=== PATIENT | female | born 1940 | race Caucasian/White ===

== ENCOUNTER → 2016-11-24 | Outpatient (CLI) | payer MEDICARE, OTHER ==
--- NOTE | 2016-11-24 16:34 | BD ---
EXAMINATION TYPE: MG DEXA axial skeleton. DATE OF EXAM: 11/24/2016 COMPARISON: NONE CLINICAL HISTORY: 76-year-old female disorder of bone, postmenopausal screening Height: 5 FT 1 IN Weight: 100 FRAX RISK QUESTIONS: Alcohol (3 or more units per day): NO Family History (Parent hip fracture): NO Glucocorticoids (More than 3mos): NO (Ex: prednisone, prednisolone, methylprednisolone, dexamethasone, and hydrocortisone). History of Fracture in Adulthood: NO Secondary Osteoporosis: 1. Type 1 Diabetes: NO 2. Hyperthyroidism: NO 3. Menopause before 45: NO 4. Malnutrition: NO 5. Chronic liver disease: NO Rheumatoid Arthritis: NO Current Tobacco Use: NO RISK FACTORS HISTORY OF: Active: YES Postmenopausal woman: AGE 50 MEDICATIONS: Additional Medications: NONE Additional History: EXAM MEASUREMENTS: Bone mineral densitometry was performed using the [employer] System. Bone mineral density as measured about the Lumbar spine is: ----- L1-L4(G/cm2): 1.012 T Score Values are as follows: ----- L2: -1.7 ----- L3: -1.1 ----- L4: -1.6 ----- L1-L4: -1.4 Bone mineral density has: Increased 5.0% since study of: 2014 Bone mineral density about the R hip (g/cm2): 0.801 Bone mineral density about the L hip (g/cm2): 0.823 T Score values are as follows: -----R Neck: -1.7 -----L Neck: -1.5 -----R Total: -1.6 -----L Total: -1.4 Bone mineral density has: Increased 2.4% since study of: 2014 IMPRESSION: Osteopenia (T Score between -2.5 and -1 as noted by T score values in the lumbar spine and both hips) . There is slightly increased risk of fracture and the patient may be considered for treatment. Re-Scre en 2-5 years. NOTE: T-SCORE=SD OF THE YOUNG ADULT MEAN.
--- NOTE | 2016-11-25 10:20 | MM ---
Reason for exam: screening (asymptomatic). Last mammogram was performed 2 years and 6 months ago. History: Patient is postmenopausal. Physical Findings: A clinical breast exam by your physician is recommended on an annual basis and results should be correlated with mammographic findings. MG 3D Screening Mammo W/Cad Bilateral CC and MLO view(s) were taken. Prior study comparison: May 13, 2014, bilateral MG screening mammo w CAD. March 07, 2009, bilateral digital screening mammogram. The breast tissue is heterogeneously dense. This may lower the sensitivity of mammography. No suspicious abnormality. No significant changes when compared with prior studies. ASSESSMENT: Negative, BI-RAD 1 RECOMMENDATION: Routine screening mammogram of both breasts in 1 year.
== END | disposition home or self-care (01) ==
LOC: RADMAMWWP 14:42
PROVIDERS: ATTEND Internal Medicine
DX: Z12.31 Encounter for screening mammogram for malignant neoplasm of breast (principal); M85.851 Other specified disorders of bone density and structure, right thigh; M85.852 Other specified disorders of bone density and structure, left thigh; M85.88 Other specified disorders of bone density and structure, other site
CPT/HCPCS: 77080; 77063; G0202

== ENCOUNTER → 2017-12-06 | Outpatient (CLI) | payer MEDICARE, OTHER ==
--- NOTE | 2017-12-07 13:13 | MM ---
Reason for exam: screening (asymptomatic). Last mammogram was performed 1 year ago. History: Patient is postmenopausal. Physical Findings: A clinical breast exam by your physician is recommended on an annual basis and results should be correlated with mammographic findings. MG 3D Screening Mammo W/Cad Bilateral CC and MLO view(s) were taken. XCCL view(s) were taken of the right breast. Prior study comparison: November 24, 2016, bilateral MG 3d screening mammo w/cad. May 13, 2014, bilateral MG screening mammo w CAD. The breast tissue is heterogeneously dense. This may lower the sensitivity of mammography. No significant changes when compared with prior studies. ASSESSMENT: Benign, BI-RAD 2 RECOMMENDATION: Routine screening mammogram of both breasts in 1 year.
== END | disposition home or self-care (01) ==
LOC: RADMAMWWP 10:46
PROVIDERS: ATTEND Internal Medicine
DX: Z12.31 Encounter for screening mammogram for malignant neoplasm of breast (principal)
CPT/HCPCS: 77063; 77067

== ENCOUNTER → 2018-03-07 | Outpatient (CLI) | payer MEDICARE ==
[2018-03-07 13:08] LABS: HGB 10.8 gm/dL (11.4-16.0); Hypochromasia Slight; MCH 27.4 pg (25.0-35.0); MCHC 30.9 g/dL (31.0-37.0); MCV 88.8 fL (80.0-100.0); Mean Platelet Volume 7.2; Platelet Count 414 k/uL (150-450); RBC 3.94 m/uL (3.80-5.40); RDW 13.2 % (11.5-15.5)
[2018-03-07 13:17] LABS: Anion Gap 8 mmol/L; Blood Urea Nitrogen 15 mg/dL (7-17); Carbon Dioxide 29 mmol/L (22-30); Chloride 103 mmol/L (98-107); Glucose 89 mg/dL (74-99); Potassium 4.9 mmol/L (3.5-5.1); Sodium 140 mmol/L (137-145)
== END | disposition home or self-care (01) ==
LOC: LABPAT 11:45
PROVIDERS: ATTEND Internal Medicine Cardiovascular Disease
DX: Z01.812 Encounter for preprocedural laboratory examination (principal); R07.2 Precordial pain
CPT/HCPCS: 80051; 82565; 82947; 84520; 85027

== ENCOUNTER 2018-03-09 06:23 | Inpatient (IN) | payer MEDICARE ==
[~2018-03-09 06:23] MED LIST: ALPRAZolam 0.25 MG TAB PO PRN; ALPRAZolam 0.5 MG TAB PO PRN; NITROGLYCERIN SL TABS 0.4 MG TAB SUBLINGUAL PRN; SODIUM CHLORIDE 0.9% 1,000 ML in EMPTY BAG 1 BAG IV ONE
[2018-03-09] MEDS ORDERED: ATORVASTATIN 80 MG TAB PO ONE (07:00)
[2018-03-09] MEDS ORDERED: ASPIRIN 325 MG TAB PO ONE (07:00)
[2018-03-09] MEDS ORDERED: MIDAZOLAM 2 MG/2 ML VIAL IV ONE (07:37)
[2018-03-09] MEDS ORDERED: LIDOCAINE 1% INJ 10MG/ML (20 ML MDV) SQ ONE (07:40)
[2018-03-09] MEDS ORDERED: IOPAMIDOL-370 125ML BTL INJ ONE (08:05)
[2018-03-09] MEDS ORDERED: RX INFO: IV CONTRAST WAS GIVEN 1 EACH MISC MISCELLANE PRN (08:08)
[2018-03-09] MEDS ORDERED: METOPROLOL SUCCINATE (ER) 25 MG TAB.ER.24H PO STA (08:14)
[2018-03-09] MEDS ORDERED: ISOSORBIDE MONONITRATE ER 30 MG TAB.ER.24H PO STA (08:14)
[2018-03-09] MEDS ORDERED: MD COMMUNICATION TO PHARMACY 1 EACH MISC PO ONE ×2 (08:43)
[2018-03-09 08:54] LABS: Cholesterol 143 mg/dL (<200); HDL Cholesterol 55 mg/dL (40-60); LDL Cholesterol,Calculated 77 mg/dL (0-99); Triglycerides 57 mg/dL (<150)
--- NOTE | 2018-03-09 09:05 | CC ---
CARDIAC CATHETERIZATION REPORT INDICATION: Unstable angina. This is a 78-year-old lady who presented to us with recurrent episodes of chest pain and had an abnormal EKG part of the stress test with normal nuclear scan. Patient was advised to undergo cardiac catheterization. She had been explained of risks, benefits and alternatives, understood and accepted. PROCEDURE NOTE: After obtaining informed consent, left heart catheterization and coronary angiogram were performed via the right femoral artery using standard [place] catheters. Patient tolerated the procedure well without any obvious immediate complications. A femoral angiogram was performed and Angio-Seal was deployed for hemostasis. Patient received moderate conscious sedation. Total sedation time was 22 minutes. Femoral angiogram shows that patient has a stenosis in the right superficial femoral artery. FINDINGS: HEMODYNAMICS: Left ventricular end-diastolic pressure is 12 to 14 mm. There is no significant gradient across the aortic valve. LEFT VENTRICULOGRAM: Ventriculogram is not performed. ANGIOGRAPHIC DATA: Left main coronary artery appears calcified and there is a 60% stenosis involving the distal portion of the left main as it bifurcates into LAD and circumflex coronary artery. The ostial portion of the LAD shows an 80%-90% stenosis. The diagonal branch also shows an 80% stenosis. Circumflex coronary artery is a nondominant vessel and is free of significant disease. Right coronary artery is a large dominant vessel that gives out collaterals to the distal LAD. There is a 95% stenosis involving the proximal right coronary artery. CONCLUSION: 1. Distal left main stenosis. 2. A 90% ostial LAD, 95% proximal RCA and a significant stenosis involving the diagonal branch. PLAN: Patient has normal LV systolic function. I am going to treat her with aspirin, nitrates, beta blockers and statins. I am going to check her lipid profile today. I am going to consult Dr. Silvano Astorga, the cardiothoracic surgeon, to evaluate the patient for bypass surgery. Patient had an episode of chest pain last night also. I think she will benefit from surgery being done on this admission. MMODL / IJN: [id number] /
--- NOTE | 2018-03-09 09:06 | LTR ---
DATE OF SERVICE: 03/09/2018 RE: Ita Cotton Dear Dr. Dyson; Ita Cotton is a 78-year-old lady that you referred to me for evaluation of recurrent episodes of chest pain and a stress test I performed. She had EKG changes but the nuclear scan was normal. Given the persistent symptoms, I advised her to undergo cardiac catheterization. Cardiac catheterization revealed significant distal left main, severe ostial LAD stenosis and severe proximal right coronary artery stenosis. Patient will need and would benefit from bypass surgery. I am consulting Dr. Silvano Astorga, the cardiothoracic surgeon, to evaluate the patient and hopefully perform bypass surgery on this admission. Thank you for giving me the privilege to participate in this pleasant lady. Sincerely, MD TRAVIS Valenzuela / MERLINE: [id number] /
[2018-03-09] MEDS: SODIUM CHLORIDE 0.9% 1,000 ML IV SCH ×2 (09:13→20:32)
[2018-03-09 09:17] LABS: ALT 29 U/L (9-52); AST 18 U/L (14-36); Albumin 2.9 g/dL (3.5-5.0); Alkaline Phosphatase 85 U/L (38-126); Anion Gap 6 mmol/L; Blood Urea Nitrogen 13 mg/dL (7-17); Calcium 8.6 mg/dL (8.4-10.2); Carbon Dioxide 25 mmol/L (22-30); Chloride 107 mmol/L (98-107); Glucose 97 mg/dL (74-99); Magnesium 2.1 mg/dL (1.6-2.3); Potassium 4.2 mmol/L (3.5-5.1); Sodium 138 mmol/L (137-145); Total Bilirubin 0.4 mg/dL (0.2-1.3); Total Protein 5.4 g/dL (6.3-8.2)
[2018-03-09 09:50] LABS: Basophils # (A) 0.1 k/uL (0-0.2); Basophils % (A) 1 %; Eosinophils # (A) 0.1 k/uL (0-0.7); Eosinophils % (A) 1 %; HCT 30.2 % (34.0-46.0); HGB 9.7 gm/dL (11.4-16.0); Hypochromasia Slight; Lymphocytes % (A) 17 %; MCH 28.3 pg (25.0-35.0); MCV 88.3 fL (80.0-100.0); Mean Platelet Volume 7.7; Monocytes # (A) 0.2 k/uL (0-1.0); Monocytes % (A) 4 %; Neutrophils # (A) 4.4 k/uL (1.3-7.7); Neutrophils % (A) 74 %; Platelet Count 337 k/uL (150-450); RBC 3.41 m/uL (3.80-5.40); RDW 13.6 % (11.5-15.5); WBC 5.9 k/uL (3.8-10.6)
[2018-03-09 10:05] LABS: INR 0.9 (<1.2); Partial Thromboplastin Time 25.2 sec (22.0-30.0)
--- NOTE | 2018-03-09 12:50 | XR ---
EXAMINATION TYPE: XR chest 2V DATE OF EXAM: 03/09/2018 COMPARISON: NONE TECHNIQUE: PA and lateral views submitted. HISTORY: Preop clearance FINDINGS: The lungs are clear and there is no pneumothorax, pleural effusion, or focal pneumonia. Hyperinflat ion suggests COPD. There is an anterior rib deformity noted on the left. Atherosclerotic change aorta . Hypertrophic and degenerative change of the spine. IMPRESSION: 1. No acute process. Correlate for COPD.
[2018-03-09 12:51] LABS: Appearance,Urine Clear (Clear); Bilirubin,Urine Negative (Negative); Blood,Urine Trace (Negative); Color,Urine Light Yellow; Glucose,Urine (UA) Negative (Negative); Ketones,Urine Negative (Negative); Leukocyte Esterase,Urine Negative (Negative); Nitrite,Urine Negative (Negative); PH, Urine 7.5 (5.0-8.0); Protein,Urine Negative (Negative); RBC,Urine 10 /hpf (0-5); Specific Gravity,Urine 1.029 (1.001-1.035); Urobilinogen,Urine <2.0 mg/dL (<2.0)
--- NOTE | 2018-03-09 12:59 | P.GSCN ---
<Janice Barrow - Last Filed: 03/09/18 12:46> History of Present Illness Consult date: 03/09/18 Reason for Consult: Multivessel coronary artery disease, surgical revascularization recommendations. Requesting physician: Sinan Alvarez History of present illness: This is a 78-year-old active female patient who follows with Dr. Dyson an outpatient basis. She has no significant previous medical history except hyperlipidemia and family history of premature coronary artery disease with father at 51, uncle at 49, aunt at 72, all from cardiovascular disease. She was following with Dr. Alvarez in the office for exertional angina with complaints of chest pain and heaviness with radiation to both arms, associated with occasional emesis, relieved with rest. She denies any shortness of breath, syncope, diaphoresis. She underwent nuclear stress test which was abnormal. She had a transthoracic echocardiogram in Dr. Alvarez's office on February 28 which demonstrated normal LV function with EF 55%, no wall motion abnormalities, grade 1 diastolic dysfunction, mild mitral regurgitation, and trace tricuspid regurgitation. She was recommended to undergo heart catheterization which was completed this morning and which demonstrated distal left main stenosis 60%, ostial LAD stenosis 80-90% with a diagonal branch showing 80% stenosis, and right coronary artery with 95% proximal stenosis. Dr. Astorga from cardiothoracic surgery was consulted regarding surgical revascularization recommendations. Review of Systems Review of systems was completed it was negative except as noted in the HPI. Past Medical History Past Medical History: Hyperlipidemia Additional Past Medical History / Comment(s): states pinched nerve in back History of Any Multi-Drug Resistant Organisms: None Reported Additional Past Surgical History / Comment(s): D&C Past Anesthesia/Blood Transfusion Reactions: No Reported Reaction Past Psychological History: No Psychological Hx Reported Smoking Status: Never smoker Past Alcohol Use History: None Reported Past Drug Use History: None Reported - Past Family History Father Family Medical History: Coronary Artery Disease (CAD) Additional Family Medical History / Comment(s): Father at 51 years old from CAD, uncle at 49 years old from CAD, and passed rate 72 from CAD Brother(s) Additional Family Medical History / Comment(s): Brother with defibrillator Medications and Allergies Home Medications Medication Instructions Recorded Confirmed Type Aspirin [Adult Low Dose Aspirin EC] 81 mg PO HS 03/07/18 03/09/18 History Calcium Carbonate [Calcium] 600 mg PO DAILY 03/07/18 03/09/18 History Co Q-10 1 tab PO DAILY 03/07/18 History Magnesium 1,000 mg PO HS 03/07/18 History Red Yeast Rice 600 mg PO DAILY 03/07/18 03/09/18 History Isosorbide Mononitrate ER [Imdur] 15 mg PO DAILY 03/09/18 03/09/18 History Metoprolol Succinate (ER) [Toprol 25 mg PO DAILY 03/09/18 03/09/18 History Xl] Allergies Allergy/AdvReac Type Severity Reaction Status Date / Time Penicillins Allergy Rash/Hives Verified 03/07/18 14:41 Surgical - Exam Vital Signs Temp Pulse Resp BP Pulse Ox 98.1 F 76 16 133/56 93 L 03/09/18 06:50 03/09/18 06:50 03/09/18 06:50 03/09/18 06:50 03/09/18 06:50 - General well developed, well nourished, no distress, no pain - Eyes PERRL, normal ocular movement - ENT no hearing loss - Neck no masses, no bruits, trachea midline - Respiratory Lungs sounds clear bilaterally. Respirations even, nonlabored. Currently on room air with oxygen saturation 98%. No chest wall deformities. - Cardiovascular S1, S2 present. Regular rate and rhythm, sinus rhythm on telemetry. Palpable peripheral pulses bilaterally. No edema present. No calf pain or tenderness noted. Positive varicosities noted. - Abdomen Abdomen: soft, non tender, bowel sounds - Genitourinary Deferred - Rectum Deferred - Integumentary no rash, no growths - Neurologic normal coordination, normal sensation - Musculoskeletal normal posture - Psychiatric oriented to time, oriented to person, oriented to place, speech is normal, memory intact Results - Labs 03/09/18 09:24 03/09/18 08:30 Abnormal Lab Results - Last 24 Hours (Table) 03/09/18 03/09/18 Range/Units 08:30 09:24 RBC 3.41 L (3.80-5.40) m/uL Hgb 9.7 L (11.4-16.0) gm/dL Hct 30.2 L (34.0-46.0) % Total Protein 5.4 L (6.3-8.2) g/dL Albumin 2.9 L (3.5-5.0) g/dL Diabetes panel 03/09/18 03/09/18 Range/Units 08:00 08:30 Sodium 138 (137-145) mmol/L Potassium 4.2 (3.5-5.1) mmol/L Chloride 107 (98-107) mmol/L Carbon Dioxide 25 (22-30) mmol/L BUN 13 (7-17) mg/dL Creatinine 0.62 (0.52-1.04) mg/dL Glucose 97 (74-99) mg/dL Calcium 8.6 (8.4-10.2) mg/dL AST 18 (14-36) U/L ALT 29 (9-52) U/L Alkaline Phosphatase 85 (38-126) U/L Total Protein 5.4 L (6.3-8.2) g/dL Albumin 2.9 L (3.5-5.0) g/dL Triglycerides 57 (<150) mg/dL HDL Cholesterol 55 (40-60) mg/dL Thyroid panel 03/09/18 Range/Units 08:30 TSH 4.280 (0.465-4.680) mIU/L Calcium panel 03/09/18 Range/Units 08:30 Calcium 8.6 (8.4-10.2) mg/dL Albumin 2.9 L (3.5-5.0) g/dL Pituitary panel 03/09/18 Range/Units 08:30 Sodium 138 (137-145) mmol/L Potassium 4.2 (3.5-5.1) mmol/L Chloride 107 (98-107) mmol/L Carbon Dioxide 25 (22-30) mmol/L BUN 13 (7-17) mg/dL Creatinine 0.62 (0.52-1.04) mg/dL Glucose 97 (74-99) mg/dL Calcium 8.6 (8.4-10.2) mg/dL TSH 4.280 (0.465-4.680) mIU/L Adrenal panel 03/09/18 Range/Units 08:30 Sodium 138 (137-145) mmol/L Potassium 4.2 (3.5-5.1) mmol/L Chloride 107 (98-107) mmol/L Carbon Dioxide 25 (22-30) mmol/L BUN 13 (7-17) mg/dL Creatinine 0.62 (0.52-1.04) mg/dL Glucose 97 (74-99) mg/dL Calcium 8.6 (8.4-10.2) mg/dL Total Bilirubin 0.4 (0.2-1.3) mg/dL AST 18 (14-36) U/L ALT 29 (9-52) U/L Alkaline Phosphatase 85 (38-126) U/L Total Protein 5.4 L (6.3-8.2) g/dL Albumin 2.9 L (3.5-5.0) g/dL - Imaging Additional studies: Cardiac catheterization films reviewed Assessment and Plan (1) Hyperlipidemia Current Visit: Yes Status: Chronic Code(s): E78.5 - HYPERLIPIDEMIA, UNSPECIFIED SNOMED Code(s): 83198570 (2) Family history of premature coronary artery disease Current Visit: Yes Status: Chronic Code(s): Z82.49 - FAMILY HX OF [place]HE[place] HEART DIS AND OTH DIS OF THE CIRC SYS SNOMED Code(s): 535982881 (3) Coronary artery disease Current Visit: Yes Status: Acute Code(s): I25.10 - ATHSCL HEART DISEASE OF [place] CORONARY ARTERY W/O ANG PCTRS SNOMED Code(s): 38886640 (4) Left main coronary artery disease Current Visit: Yes Status: Acute Code(s): I25.10 - ATHSCL HEART DISEASE OF [place] CORONARY ARTERY W/O ANG PCTRS SNOMED Code(s): 139874294 Plan: The patient was seen and examined in the extended stay unit with Dr. Astorga. Chart/diagnostics reviewed including heart catheterization films. Our recommendation is for coronary artery bypass graft surgery. We discussed the usual perioperative course in detail with the patient and her family, all risks and benefits were discussed in detail, all questions were answered, and the patient is agreeable to surgery. She will remain inpatient per cardiology's wishes. Preoperative testing was initiated. We recommend maximizing medical therapy with aspirin, statin, beta lobito. Patient will likely have surgery the early part of next week pending the outcome of preoperative testing. This was discussed with the patient and her family and they are in agreement. Continue medical management per service. More recommendations to follow. Thank you Dr. Alvarez for this consult. We look forward to working with you in the care of your patient. Time with Patient: Greater than 30 <Yobany Astorga R - Last Filed: 03/09/18 14:51> Surgical - Exam Vital Signs Temp Pulse Resp BP Pulse Ox 98.1 F 76 16 133/56 93 L 03/09/18 06:50 03/09/18 06:50 03/09/18 06:50 03/09/18 06:50 03/09/18 06:50 Results - Labs 03/09/18 09:24 03/09/18 08:30 Abnormal Lab Results - Last 24 Hours (Table) 03/09/18 03/09/18 03/09/18 Range/Units 08:30 09:24 12:35 RBC 3.41 L (3.80-5.40) m/uL Hgb 9.7 L (11.4-16.0) gm/dL Hct 30.2 L (34.0-46.0) % Total Protein 5.4 L (6.3-8.2) g/dL Albumin 2.9 L (3.5-5.0) g/dL Urine Blood Trace H (Negative) Urine RBC 10 H (0-5) /hpf Diabetes panel 03/09/18 03/09/18 Range/Units 08:00 08:30 Sodium 138 (137-145) mmol/L Potassium 4.2 (3.5-5.1) mmol/L Chloride 107 (98-107) mmol/L Carbon Dioxide 25 (22-30) mmol/L BUN 13 (7-17) mg/dL Creatinine 0.62 (0.52-1.04) mg/dL Glucose 97 (74-99) mg/dL Calcium 8.6 (8.4-10.2) mg/dL AST 18 (14-36) U/L ALT 29 (9-52) U/L Alkaline Phosphatase 85 (38-126) U/L Total Protein 5.4 L (6.3-8.2) g/dL Albumin 2.9 L (3.5-5.0) g/dL Triglycerides 57 (<150) mg/dL HDL Cholesterol 55 (40-60) mg/dL Thyroid panel 03/09/18 Range/Units 08:30 TSH 4.280 (0.465-4.680) mIU/L Calcium panel 03/09/18 Range/Units 08:30 Calcium 8.6 (8.4-10.2) mg/dL Albumin 2.9 L (3.5-5.0) g/dL Pituitary panel 03/09/18 Range/Units 08:30 Sodium 138 (137-145) mmol/L Potassium 4.2 (3.5-5.1) mmol/L Chloride 107 (98-107) mmol/L Carbon Dioxide 25 (22-30) mmol/L BUN 13 (7-17) mg/dL Creatinine 0.62 (0.52-1.04) mg/dL Glucose 97 (74-99) mg/dL Calcium 8.6 (8.4-10.2) mg/dL TSH 4.280 (0.465-4.680) mIU/L Adrenal panel 03/09/18 Range/Units 08:30 Sodium 138 (137-145) mmol/L Potassium 4.2 (3.5-5.1) mmol/L Chloride 107 (98-107) mmol/L Carbon Dioxide 25 (22-30) mmol/L BUN 13 (7-17) mg/dL Creatinine 0.62 (0.52-1.04) mg/dL Glucose 97 (74-99) mg/dL Calcium 8.6 (8.4-10.2) mg/dL Total Bilirubin 0.4 (0.2-1.3) mg/dL AST 18 (14-36) U/L ALT 29 (9-52) U/L Alkaline Phosphatase 85 (38-126) U/L Total Protein 5.4 L (6.3-8.2) g/dL Albumin 2.9 L (3.5-5.0) g/dL Assessment and Plan Assessment: 78 yof w progressive AP over past 6 m. Cath today shows Lt main/triple vessel dz. Plan CABG. I feel pt is stable and could go home w readmit next week for OR. Cardiology requests patient stay in house until OR. CABG next available, likely early next week.
--- NOTE | 2018-03-09 14:49 | US ---
EXAMINATION TYPE: US carotid duplex BILAT DATE OF EXAM: 03/09/2018 COMPARISON: CLINICAL HISTORY: Pre-Op Surgery. Precabg, No HTN, no TIA EXAM MEASUREMENTS: RIGHT: Peak Systolic Velocity (PSV) cm/sec ----- Right CCA: 67.7 ----- Right ICA: 94.6 ----- Right ECA: 100.9 ICA/CCA ratio: 1.4 RIGHT: End Diastole cm/sec ----- Right CCA: 16.2 ----- Right ICA: 29.6 ----- Right ECA: 0.0 LEFT: Peak Systolic Velocity (PSV) cm/sec ----- Left CCA: 75.6 ----- Left ICA: 97.9 ----- Left ECA: 111.3 ICA/CCA ratio: 1.3 LEFT: End Diastole cm/sec ----- Left CCA: 16.2 ----- Left ICA: 29.6 ----- Left ECA: 0.0 VERTEBRALS (direction of flow): Right Vertebral: Antegrade Left Vertebral: Antegrade Rhythm: Normal Plaque seen in left bulb and left prox CCA. No elevated velocities. Left wall thickening. No signi ficant stenosis. IMPRESSION: 1. Atherosclerotic plaque on the left with no significant hemodynamic stenosis. Criteria for Assigning % of Stenosis / Diameter reduction (Estimation based on the indirect measurements of the internal carotid artery velocities (ICA PSV). 1. Normal (no stenosis)=ICA PSV < 125 cm/s: ratio < 2.0: ICA EDV<40 cm/s. 2. Less than 50% stenosis=ICA PSV < 125 cm/s: ratio < 2.0: ICA EDV<40 cm/s. 3. 50 to 69% stenosis=ICA PSV of 125 to 230 cm/s: ration 2.0 ? 4.0: ICA EDV 40-100 cm/s. 4. Greater than 70% stenosis to near occlusion= ICA PSV > 230 cm/s: ratio > 4.0: ICA EDV > 100 cm/s. 5. Near occlusion= ICA PSV velocities may be low or undetectable: variable ratio and ICA EDV. 6. Total occlusion=unable to detect flow.
[2018-03-09] MEDS: ASPIRIN 325 MG TAB PO SCH (15:05)
[2018-03-09 18:37] LABS: Hemoglobin A1C 5.7 % (4.0-6.0)
[2018-03-09] MEDS: MUPIROCIN 2% OINT 22 GM TUBE NASAL SCH (20:30)
[2018-03-09] MEDS ORDERED: METOPROLOL TARTRATE 12.5 MG TAB PO STA (20:49)
--- NOTE | 2018-03-09 23:18 | CONS ---
CONSULTATION The patient is a 78-year-old female who had been having recurrent chest discomfort. Apparently, workup as an outpatient revealed a suspicious stress test and she underwent further cardiac catheterization earlier today, results of which revealed distal left main stenosis also a 90% ostial LAD lesion, 95% proximal right coronary artery lesion and also apparent significant stenosis involving the diagonal branch. The patient has maintained normal LV function. Consultation has been placed with thoracic surgery and apparently there are plans for surgical intervention. PATIENT'S PAST MEDICAL HISTORY: Is positive for hyperlipidemia, for which patient has declined medication in the past. He has tried to control it as best possible with diet. There is also history of osteopenia, but no history of myocardial infarction, diabetes, stroke, or hypertension. Until recently other than aspirin she has not been on any major medications, although she did take coenzyme Q and 81 mg of aspirin a day. She more recently with her history she has been started on metoprolol ER 25 mg daily. Isosorbide mononitrate, Imdur 15 mg daily, calcium carbonate 600 mg daily, aspirin 81 mg daily. Red yeast rice 600 mg daily. ALLERGIES: THERE IS A HISTORY OF ALLERGIES TO PENICILLIN WITH RASH AND HIVES. REVIEW OF SYSTEMS: Positive for some recurrent chest pain, some which occurred at rest, but some did occur while she was climbing stairs and this has seemed to gradually worsen over several weeks prior to admission. She had some shortness of breath with exertion, but no fever, chills, cough. No nausea, vomiting. No urinary or bowel symptomatology. No blood in her stool. No unusual edema. No unusual headaches. FAMILY HISTORY: She has a father who has had a myocardial infarction. SOCIAL HISTORY: She has never smoked. She does not drink alcohol to any excess and lives locally in the [place] area with her . PHYSICAL EXAMINATION: She is alert, pleasant, in no acute distress. VITAL SIGNS: Temperature 98 with a pulse of 70, respirations 16, and blood pressure 151/58, and she is 100% saturated on room air. Head and neck exam was unremarkable. Extraocular movements are intact. Neck is not stiff. There is no adenopathy or thyromegaly detected. Lungs were clear. Breast and pelvic exam deferred. HEART: Regular without murmurs. ABDOMEN: Nontender. EXTREMITIES: No unusual edema. NEUROLOGICALLY: She is alert and oriented. Cranial nerves are intact without deficits and no focal weakness noted. LABORATORY: Evaluation revealed a white count of 5.9, hemoglobin is low at 9.7, platelet count of 337. The patient last year in October, had a normal CBC and hemoglobin. Her INR is 0.9. PTT 25. Electrolytes unremarkable. Her sodium is 138, potassium 4.2, BUN of 13 with a creatinine 0.62, GFR greater than 90. She did have an A1c done which was 5.7 with a blood sugar of 97, calcium normal at 8.6. The liver enzymes were basically unremarkable. The albumin is 2.9. Cholesterol presently though on labs revealed a cholesterol of 143 with a HDL of 55 and LDL is 77, triglycerides of 57. TSH normal at 4.2. Her urinalysis did reveal trace blood, leukocyte esterase were negative. The 10 RBCs microscopically present and the patient had a chest x-ray which showed no acute process and carotid Dopplers, which showed some atherosclerotic plaque but no significant hemodynamic stenoses. IMPRESSION: At this point is unstable angina type picture with preserved LV function, but abnormalities on heart catheterization as described above. The patient does have some family history with a myocardial infarction in her father and also history of elevated cholesterol, although appears to be fairly well controlled on Coenzyme-Q. The patient does have history of osteopenia. At this point, the patient is comfortable, on present medications. Presently not having pain at rest, but his level at pain with exertion. The surgery to continue their assessment and discussed with the patient and family at bedside today. MMODL / IJN: [id number] /
[2018-03-10 01:25] LABS: Hepatitis A Antibody IgM Non-Reactive (Non-Reactive); Hepatitis B Core IgM Non-Reactive (Non-Reactive)
[2018-03-10] MEDS: ATORVASTATIN 20 MG TAB PO SCH (08:55)
[2018-03-10] MEDS: ASPIRIN 325 MG TAB PO SCH (08:55)
--- NOTE | 2018-03-10 08:55 | PN ---
PROGRESS NOTE This is a 78-year-old lady that I had admitted for heart catheterization. Her cardiac catheterization revealed 3-vessel coronary artery disease with significant distal left main stenosis. She had been seen by cardiothoracic surgeon and is scheduled for bypass surgery on Tuesday. This morning she is doing well and is free of symptoms. She is on Toprol-XL 25 mg daily, Imdur 15 mg daily, aspirin, red yeast rice, and magnesium. Her lipid profile shows that the LDL cholesterol is 77. I am going to start her on a small dose of statin. On exam today she is comfortable at rest. Vital signs are stable. Chest exam reveals good air entry bilaterally. Heart exam reveals first and second heart sounds. No gallop. Groin is free of bleeding, bruit, hematoma. Foot pulses are intact. ASSESSMENT: Three-vessel coronary artery disease. PLAN: Patient will undergo bypass surgery on Tuesday. TRAVIS / MICHELLEN: [id number] /
[2018-03-10] MEDS ORDERED: ATORVASTATIN 40 MG TAB PO SCH (09:00)
[2018-03-10] MEDS ORDERED: METOPROLOL TARTRATE 12.5 MG TAB PO SCH (09:00)
[2018-03-10] MEDS ORDERED: MAGNESIUM OXIDE 400 MG TAB PO SCH (09:15)
[2018-03-10] MEDS: MUPIROCIN 2% OINT 22 GM TUBE NASAL SCH (09:31)
[2018-03-10] MEDS: ISOSORBIDE MONONITRATE ER 15 MG TAB PO SCH (09:31)
[2018-03-10] MEDS: SODIUM CHLORIDE 0.9% 1,000 ML IV SCH (09:58)
--- NOTE | 2018-03-10 09:59 | P.PN ---
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 Previous medical history of hyperlipidemia and family history of premature coronary artery disease. The patient's currently sitting up in bed in no acute distress. Denies any chest pain or shortness of breath. Sister at bedside. Asked multiple questions regarding pending surgery, all answered to the best my ability. No new complaints. Objective - Vital Signs Vital signs: Vital Signs Temp 99.2 F 03/10/18 08:15 Pulse 71 03/10/18 08:15 Resp 20 03/10/18 08:15 BP 115/69 03/10/18 08:15 Pulse Ox 99 03/10/18 08:15 Intake & Output 03/09/18 03/10/18 03/10/18 18:59 06:59 18:59 Intake Total 290 480 200 Balance 290 480 200 Weight 43.9 kg Intake: IV 50 Sodium Chloride 0.9% 1, 0 000 ml @ 75 mls/hr IV . [id number] NICO Rx#:[id number] Oral 240 480 200 Other: Voiding Method Toilet # Voids 1 - Constitutional General appearance: Present: cooperative, no acute distress - Respiratory Details: Lungs sounds clear bilaterally. Respirations even, nonlabored. Currently on room air with oxygen saturation 98%. - Cardiovascular Details: S1, S2 present. Regular rate and rhythm, sinus rhythm on telemetry. Palpable peripheral pulses bilaterally. No edema present. No calf pain or tenderness noted. - Gastrointestinal Gastrointestinal Comment(s): Abdomen soft, nontender, nondistended. Active bowel sounds present 4 quadrants. Tolerating diet. - Genitourinary Genitourinary Comment(s): Continues to void clear, yellow urine. - Integumentary Integumentary Comment(s): Skin is warm and dry with evidence of good perfusion. Right femoral arterial heart catheterization site well approximated, soft, nontender, no hematoma. - Neurologic Neurologic: Present: CNII-XII intact - Musculoskeletal Musculoskeletal: Present: gait normal, strength equal bilaterally - Psychiatric Psychiatric: Present: A&O x's 3, appropriate affect, intact judgment & insight - Allied health notes Allied health notes reviewed: nursing - Labs CBC & Chem 7: 03/09/18 09:24 03/09/18 08:30 Labs: Abnormal Lab Results - Last 24 Hours (Table) 03/09/18 03/09/18 Range/Units 09:24 12:35 RBC 3.41 L (3.80-5.40) m/uL Hgb 9.7 L (11.4-16.0) gm/dL Hct 30.2 L (34.0-46.0) % Urine Blood Trace H (Negative) Urine RBC 10 H (0-5) /hpf Microbiology - Last 24 Hours (Table) 03/09/18 12:35 Urine Culture - Preliminary Urine,Clean Catch 03/09/18 09:00 Nasal Screen MRSA/MSSA - Preliminary Nasal Swab - Imaging and Cardiology Chest x-ray: report reviewed, image reviewed Carotid Dopplers, vein mapping reviewed Assessment and Plan (1) Hyperlipidemia Current Visit: Yes Status: Chronic Code(s): E78.5 - HYPERLIPIDEMIA, UNSPECIFIED SNOMED Code(s): 16680201 (2) Family history of premature coronary artery disease Current Visit: Yes Status: Chronic Code(s): Z82.49 - FAMILY HX OF ISCHEM HEART DIS AND OTH DIS OF THE CIRC SYS SNOMED Code(s): 323082589 (3) Coronary artery disease Current Visit: Yes Status: Acute Code(s): I25.10 - ATHSCL HEART DISEASE OF [place] CORONARY ARTERY W/O ANG PCTRS SNOMED Code(s): 90402166 (4) Left main coronary artery disease Current Visit: Yes Status: Acute Code(s): I25.10 - ATHSCL HEART DISEASE OF [place] CORONARY ARTERY W/O ANG PCTRS SNOMED Code(s): 497458640 Plan: 1. Continue to maximize medical therapy with aspirin, statin, beta lobito therapy. 2. Pulmonary function test to be completed today. 3. Incentive spirometry ordered, encourage. 4. STS risk factor calculated and discussed with patient. 5. Will complete 5 m walk test today. 6. Our plan is for coronary artery bypass graft surgery with left internal mammary artery and endovein harvest on TuesdayMarch [address]. 7. Continue to reinforce preoperative teaching. 8. Continued management per Dr. Colvin and cardiology. 9. More recommendations to follow. Time with Patient: Greater than 30
--- NOTE | 2018-03-10 11:25 | ECHOF ---
Referral Reason:preop cabg MEASUREMENTS -------- HEIGHT: 152.4 cm WEIGHT: 42.2 kg BP: RVIDd: 3.6 cm (< 3.3) IVSd: 1.1 cm (0.6 - 1.1) LVIDd: 2.8 cm (3.9 - 5.3) LVPWd: 1.3 cm (0.6 - 1.1) IVSs: 1.2 cm LVIDs: 2.4 cm LVPWs: 1.1 cm LA Diam: 3.4 cm (2.7 - 3.8) Ao Diam: 2.8 cm (2.0 - 3.7) AV Cusp: 1.4 cm (1.5 - 2.6) EPSS: 0.8 cm MV E Real: 0.50 m/s MV DecT: 285 ms MV A Real: 0.72 m/s MV E/A Ratio: 0.69 RAP: 5.00 mmHg RVSP: 21.74 mmHg MV EF SLOPE: 58.31 mm/s (70 - 150) MV EXCURSION: 1.10 cm (> 18.000) FINDINGS -------- Sinus rhythm. This was a technically good study. LV size, wall thickness and systolic function are normal, with an EF greater than 55%. The left mark tricular size is normal. The right ventricle is normal in size. The left atrial size is normal. The right atrial size is normal. There is mild aortic valve sclerosis. There is no evidence of aortic regurgitation. No mitral regurgitation. Mild tricuspid regurgitation present. There is no evidence of pulmonary hypertension. The right v entricular systolic pressure, as measured by Doppler, is 21.74mmHg. There is no pulmonic regurgitation present. The aortic root size is normal. There is no pericardial effusion. CONCLUSIONS -------- 1. LV size, wall thickness and systolic function are normal, with an EF greater than 55%. 2. The left ventricular size is normal. 3. The right ventricle is normal in size. 4. The left atrial size is normal. 5. The right atrial size is normal. 6. There is mild aortic valve sclerosis. 7. No mitral regurgitation. 8. Mild tricuspid regurgitation present. 9. There is no evidence of pulmonary hypertension. 10. The right ventricular systolic pressure, as measured by Doppler, is 21.74mmHg. 11. There is no pulmonic regurgitation present. 12. The aortic root size is normal. 13. There is no pericardial effusion. PATENTED [employer] ASSEMBLER: Sarah Cast RDCS
--- NOTE | 2018-03-10 17:40 | P.CNPUL ---
History of Present Illness Consult date: 03/10/18 Requesting physician: Meño Her Reason for consult: chest pain Chief complaint: Coronary artery disease History of present illness: This 78-year-old white female patient of Dr. Figueroa, who came into the hospital for an elective heart catheterization on 03/09/2018. Patient has been having recurrent episodes of chest pain the last several months, with episodes of vomiting and tachycardia. Patient has no significant previous medical history except for hyperlipidemia, and family history of premature coronary artery disease, with father at age of 51, uncle at the age of 49, and brother with cardiomyopathy and placement of AICD at the age of 53. Patient went to see her primary care provider, she was referred to cardiology, and underwent evaluation and outpatient stress test on Tuesday03/07/2018, which was said to be abnormal with EKG changes, but no chest pain. Patient was then scheduled for cardiac catheterization on 03/09/2018 showed distal left main stenosis of 60%, with calcification, a 90% ostial LAD, 95% proximal RCA, and a significant stenosis involving the diagonal branch. Normal LV systolic function was noted. Echocardiogram showed an EF greater than 55%, mild aortic valve sclerosis no evidence of aortic regurgitation, mild tricuspid regurgitation, no evidence of pulmonary hypertension. Chest x-ray showed no acute process, showed hyperinflation suggesting COPD. She was evaluated by cardiothoracic surgery and the surgical intervention was recommended, patient is scheduled for coronary artery bypass grafting on Tuesday03/13/2018. Lab work showed white count of 5.9, hemoglobin of 9.7, electro Jay profile were within normal limits, relation profile was normal, LFTs were within normal limits, hemoglobin A1c was 5.7, urinalysis showed trace blood, no evidence of infection. Vision is a lifetime nonsmoker, she denies any history of chronic lung disease. Preop PFT showed an FEV1 2.36 L or 136% of predicted. Patient is ambulating without any difficulty, denies any chest pain or shortness of breath with activity, she states she has been having her chest pain episodes mostly at night. At least, comfortable, vital signs are stable, room air pulse ox is 98%. Review of Systems All systems: negative Constitutional: Denies chills, Denies fever Eyes: denies blurred vision, denies pain Ears, nose, mouth and throat: Denies headache, Denies sore throat Cardiovascular: Reports chest pain, Denies shortness of breath Respiratory: Denies cough Gastrointestinal: Denies abdominal pain, Denies diarrhea, Denies nausea, Denies vomiting Genitourinary: Denies dysuria, Denies hematuria Musculoskeletal: Denies myalgias Integumentary: Denies pruritus, Denies rash Neurological: Denies numbness, Denies weakness Psychiatric: Denies anxiety, Denies depression Endocrine: Denies fatigue, Denies weight change Past Medical History Past Medical History: Hyperlipidemia Additional Past Medical History / Comment(s): states pinched nerve in back History of Any Multi-Drug Resistant Organisms: None Reported Additional Past Surgical History / Comment(s): D&C Past Anesthesia/Blood Transfusion Reactions: No Reported Reaction Past Psychological History: No Psychological Hx Reported Smoking Status: Never smoker Past Alcohol Use History: None Reported Past Drug Use History: None Reported - Past Family History Father Family Medical History: Coronary Artery Disease (CAD) Additional Family Medical History / Comment(s): Father at 51 years old from CAD, uncle at 49 years old from CAD, and passed rate 72 from CAD Brother(s) Additional Family Medical History / Comment(s): Brother with defibrillator Medications and Allergies Home Medications Medication Instructions Recorded Confirmed Type Aspirin [Adult Low Dose Aspirin EC] 81 mg PO HS 03/07/18 03/09/18 History Calcium Carbonate [Calcium] 600 mg PO DAILY 03/07/18 03/09/18 History Co Q-10 1 tab PO DAILY 03/07/18 History Magnesium 1,000 mg PO HS 03/07/18 History Red Yeast Rice 600 mg PO DAILY 03/07/18 03/09/18 History Isosorbide Mononitrate ER [Imdur] 15 mg PO DAILY 03/09/18 03/09/18 History Metoprolol Succinate (ER) [Toprol 25 mg PO DAILY 03/09/18 03/09/18 History Xl] Allergies Allergy/AdvReac Type Severity Reaction Status Date / Time Penicillins Allergy Rash/Hives Verified 03/07/18 14:41 Physical Exam Vitals: Vital Signs Temp Pulse Resp BP BP Pulse Ox 03/10/18 16:00 97.9 F 67 22 99/45 98 03/10/18 11:18 98.1 F 72 20 88/53 96 03/10/18 08:15 99.2 F 71 20 115/69 99 03/10/18 03:30 98.8 F 71 18 114/66 98 03/10/18 03:18 65 16 03/09/18 23:56 88 18 97/53 98 03/09/18 20:00 98.7 F 78 18 107/65 98 Intake and Output 03/10/18 03/10/18 03/10/18 06:59 14:59 22:59 Intake Total 480 200 Balance 480 200 Intake: Oral 480 200 Other: Voiding Method Toilet # Voids 1 Weight 43.9 kg 43.9 kg GENERAL EXAM: Alert, pleasant, 70-year-old thin frail looking white female, comfortable in no apparent distress. HEAD: Normocephalic/atraumatic. EYES: Normal reaction of pupils, equal size. Conjunctiva pink, sclera white. NOSE: Clear with pink turbinates. THROAT: No erythema or exudates. NECK: No masses, no JVD, no thyroid enlargement, no adenopathy. CHEST: No chest wall deformity. Symmetrical expansion. LUNGS: Equal air entry with no crackles, wheeze, rhonchi or dullness. CVS: Regular rate and rhythm, normal S1 and S2, no gallops, no murmurs, no rubs ABDOMEN: Soft, nontender. No hepatosplenomegaly, normal bowel sounds, no guarding or rigidity. EXTREMITIES: No clubbing, no edema, no cyanosis, 2+ pulses and upper and lower extremities. MUSCULOSKELETAL: Muscle strength and tone normal. SPINE: No scoliosis or deformity SKIN: No rashes CENTRAL NERVOUS SYSTEM: Alert and oriented -3. No focal deficits, tone is normal in all 4 extremities. PSYCHIATRIC: Alert and oriented -3. Appropriate affect. Intact judgment and insight. Results - Laboratory Findings CBC and BMP: 03/09/18 09:24 03/09/18 08:30 PT/INR, D-dimer PT 10.0 sec (9.0-12.0) 03/09/18 09:24 INR 0.9 (<1.2) 03/09/18 09:24 Abnormal lab findings: Abnormal Labs 03/09/18 03/09/18 03/09/18 08:30 09:24 12:35 RBC 3.41 L Hgb 9.7 L Hct 30.2 L Total Protein 5.4 L Albumin 2.9 L Urine Blood Trace H Urine RBC 10 H - Diagnostic Findings Chest x-ray: report reviewed Assessment and Plan Plan: Assessment: #1. Symptomatic multi-vessel coronary artery disease, with the left main stenosis of 60%, ostial LAD stenosis 80-90% with a diagonal branch showing 80% stenosis, and RCA with 95% proximal stenosis. Patient is scheduled for revascularization surgery on 03/13/2018 #2. Hyperlipidemia #3. Family history of premature coronary artery disease #4. Lifelong nonsmoker Plan: Bedside spirometry results were reviewed with Dr. Guzman, and showed an FEV1 of 2.36 L or 136 L of predicted. Chest x-ray did not show any acute cardiopulmonary process, patient is a lifetime nonsmoker. Patient is a low operative risk based on her history, spirometry results, and physical exam. We' ll continue to follow. I performed a history & physical examination of the patient and discussed their management with my nurse practitioner, Maureen Strong. I reviewed the nurse practitioner's note and agree with the documented findings and plan of care. Lung sounds are positive for clear breath sounds. The findings and the impression was discussed with the patient. I attest to the documentation by the nurse practitioner. Time with Patient: Greater than 30
[2018-03-10] MEDS: SENNOSIDES 8.6 MG TAB PO SCH (22:34)
[2018-03-10] MEDS: MAGNESIUM OXIDE 400 MG TAB PO SCH (22:35)
[2018-03-11] MEDS: MUPIROCIN 2% OINT 22 GM TUBE NASAL SCH ×3 (00:10→22:06)
[2018-03-11] MEDS: SODIUM CHLORIDE 0.9% 1,000 ML IV SCH ×2 (01:49→09:51)
[2018-03-11] MEDS: METOPROLOL SUCCINATE (ER) 25 MG TAB.ER.24H PO SCH (08:22)
[2018-03-11] MEDS: ISOSORBIDE MONONITRATE ER 15 MG TAB PO SCH (08:22)
[2018-03-11] MEDS: ATORVASTATIN 20 MG TAB PO SCH (08:22)
[2018-03-11] MEDS: ASPIRIN 325 MG TAB PO SCH (08:22)
--- NOTE | 2018-03-11 11:53 | P.PN ---
Subjective Progress Note Date: 03/11/18 Principal diagnosis: Severe triple-vessel coronary artery disease This is a pleasant 78-year-old female patient who sees Dr. Patel in the office as an outpatient who was experiencing recently chest discomfort concerning for angina and underwent a heart catheterization and that revealed severe triple-vessel coronary artery disease. The patient was seen and evaluated by the cardiothoracic surgeon who agreed to proceed with coronary artery bypass grafting. The patient is scheduled to have the surgery this coming Tuesday. On follow-up with her today, March [id number], she remains asymptomatic from a cardiovascular standpoint of view. No chest pain or discomfort and no shortness of breath. Objective - Vital Signs Vital signs: Vital Signs Temp 98.0 F 03/11/18 07:52 Pulse 69 03/11/18 07:52 Resp 20 03/11/18 07:52 BP 101/61 03/11/18 07:52 Pulse Ox 98 03/11/18 07:52 Intake & Output 03/10/18 03/11/18 03/11/18 18:59 06:59 18:59 Intake Total 200 240 Balance 200 240 Weight 43.9 kg 40 kg Intake: Oral 200 240 Other: # Voids 1 1 0 - Constitutional General appearance: Present: no acute distress - Respiratory Respiratory: bilateral: CTA - Cardiovascular Rhythm: regular Heart sounds: normal: S1, S2 - Labs CBC & Chem 7: 03/09/18 09:24 03/09/18 08:30 Labs: Microbiology - Last 24 Hours (Table) 03/09/18 09:00 Nasal Screen MRSA/MSSA - Final Nasal Swab 03/09/18 12:35 Urine Culture - Final Urine,Clean Catch Assessment and Plan Assessment: Assessment #1 severe triple-vessel coronary artery disease #2 hypertension #3 dyslipidemia Plan #1 continue the current medical regimen including aspirin, statin, beta lobito #2 follow-up with the patient
--- NOTE | 2018-03-11 11:54 | P.PN ---
Subjective Progress Note Date: 03/11/18 Principal diagnosis: Symptomatic multivessel coronary artery disease with left main disease, history of hyperlipidemia and family history of premature coronary artery disease. Patient is currently ambulating in her room on 3 S. cardiac stepdown unit. She denies any complaints of chest pain or shortness of breath at this time. Reviewed preoperative instructions with the patient and questions answered to the best of my ability. Bedside FEV1 was completed which showed a predicted value of 136%. Objective - Vital Signs Vital signs: Vital Signs Temp 98.0 F 03/11/18 07:52 Pulse 69 03/11/18 07:52 Resp 20 03/11/18 07:52 BP 101/61 03/11/18 07:52 Pulse Ox 98 03/11/18 07:52 Intake & Output 03/10/18 03/11/18 03/11/18 18:59 06:59 18:59 Intake Total 200 240 Balance 200 240 Weight 43.9 kg 40 kg Intake: Oral 200 240 Other: # Voids 1 1 0 - Constitutional General appearance: Present: cooperative, no acute distress, thin - Respiratory Details: Lung sounds are essentially clear throughout. Respirations are symmetrical and nonlabored. Oxygen saturation are 98% on room air. She is achieving 1250 mL on her incentive spirometry. - Cardiovascular Details: Regular rhythm and rate. S1 and S2 present, negative for S3, gallop or murmur. Remote telemetry showing normal sinus rhythm heart rate 90. No edema present. - Gastrointestinal Gastrointestinal Comment(s): Abdomen is soft, nontender and nondistended. Active bowel sounds to all 4 abdominal quadrants. No guarding or rigidity. No organomegaly. - Genitourinary Genitourinary Comment(s): Voiding clear yellow urine. - Integumentary Integumentary Comment(s): Skin is warm and dry. No clubbing or cyanosis present. No rash or abnormal pigmentation present. Right femoral arterial heart catheterization site is clean, soft, nontender and no redness or drainage is present. - Neurologic Neurologic: Present: CNII-XII intact - Musculoskeletal Musculoskeletal: Present: gait normal, strength equal bilaterally - Psychiatric Psychiatric: Present: A&O x's 3, appropriate affect, intact judgment & insight - Allied health notes Allied health notes reviewed: nursing - Labs CBC & Chem 7: 03/09/18 09:24 03/09/18 08:30 Labs: Microbiology - Last 24 Hours (Table) 03/09/18 09:00 Nasal Screen MRSA/MSSA - Final Nasal Swab 03/09/18 12:35 Urine Culture - Final Urine,Clean Catch Assessment and Plan (1) Coronary artery disease Current Visit: Yes Status: Acute Code(s): I25.10 - ATHSCL HEART DISEASE OF [place] CORONARY ARTERY W/O ANG PCTRS SNOMED Code(s): 20717319 (2) Left main coronary artery disease Current Visit: Yes Status: Acute Code(s): I25.10 - ATHSCL HEART DISEASE OF [place] CORONARY ARTERY W/O ANG PCTRS SNOMED Code(s): 783759656 (3) Family history of premature coronary artery disease Current Visit: Yes Status: Chronic Code(s): Z82.49 - FAMILY HX OF I[place]HEM HEART DIS AND OTH DIS OF THE CIRC SYS SNOMED Code(s): 521174355 (4) Hyperlipidemia Current Visit: Yes Status: Chronic Code(s): E78.5 - HYPERLIPIDEMIA, UNSPECIFIED SNOMED Code(s): 12192586 Plan: 1. Continue to maximize medical therapy with aspirin, statin and beta lobito. 2. Pulmonary function test completed which shows a FEV1 predicted value of 136% . 3. Encourage use of her incentive spirometry every hour while awake. 4. 5 m walk test was completed yesterday by cardiac rehab, time 1: 2.86 seconds , time 2: 3.00 seconds, time 3: 3.20 seconds. 5. She is currently scheduled for coronary artery bypass grafting surgery with left internal mammary artery and endoscopic vein harvest on 03/13/2018 to be performed by Dr. Her. 6. Preoperative teaching reinforced, questions answered. 7. Medical management per primary care service and cardiology. 8. More recommendations to follow based on patient's clinical course. Time with Patient: Greater than 30
--- NOTE | 2018-03-11 14:05 | PN ---
PROGRESS NOTE The patient is seen today March 11, 2018 in followup on the selective care unit. She is awake and alert, in no acute distress. She denies any chest pain, palpitations, lightheadedness, or dizziness. No shortness of breath, cough, or congestion. She has been out ambulating in the [place] without distress. She is maintaining good O2 saturations in the 90s on room air. The plan is for coronary revascularization on March 13, 2018. PHYSICAL EXAMINATION: On physical exam, she is alert and oriented, in no acute distress. Vital signs are stable. Her head is normocephalic. Sclerae anicteric. Her neck is supple. Trachea midline. Her lungs are clear anterior and posteriorly. Her heart is regular S1, S2. Her abdomen is soft, nontender. Bowel sounds are present. There is no peripheral edema. No clubbing. No cyanosis. Peripheral pulses are intact. INVESTIGATIONS: Reviewed. MEDICATIONS: Reviewed. IMPRESSION: Significant coronary artery disease. The plan is for coronary artery bypass grafting on 03/13/2018. PLAN: The patient was seen and evaluated by Dr. Sherman. She is educated regarding the importance of the use of the incentive spirometer and cough and deep breathing exercises. We will follow her in the immediate postoperative setting. The plan will be for early extubation protocol as tolerated. Will continue to follow. I, the cosigning physician, performed a history and physical examination on the patient. Lung sounds are clear. Maintain O2 saturations in the 90s on room air. I discussed the assessment and plan of care with my nurse practitioner, Danielle Paul. I attest to the above note as dictated by her. MMODL / IJN: [id number] /
--- NOTE | 2018-03-11 19:10 | PN ---
PROGRESS NOTE Mrs. Cotton is a 78-year-old female who presented with recurrent chest pain and found to have multivessel disease on cardiac catheterization. Plans are for coronary artery bypass surgery on Tuesday. She presently denies any chest pain. Vital signs revealed temperature 97.9, pulse of 65, respirations 18, blood pressure 93/46, and she is 99% saturated on room air. Lung and heart examination is clear. There is no unusual edema or new neurological deficits at this point. Continue present medications with beta blockers and statins and plans are for once again open-heart surgery on Tuesday. Questions were answered with the patient and family at the bedside today. MMODL / IJN: [id number] /
[2018-03-11] MEDS: MAGNESIUM OXIDE 400 MG TAB PO SCH (22:06)
[2018-03-11] MEDS: SENNOSIDES 8.6 MG TAB PO SCH (22:07)
[2018-03-12] MEDS: SODIUM CHLORIDE 0.9% 1,000 ML IV SCH ×2 (05:52→11:32)
[2018-03-12 07:39] LABS: Basophils # (A) 0.1 k/uL (0-0.2); Basophils % (A) 1 %; Eosinophils # (A) 0.3 k/uL (0-0.7); Eosinophils % (A) 4 %; HCT 34.4 % (34.0-46.0); HGB 10.7 gm/dL (11.4-16.0); Hypochromasia Slight; Lymphocytes # (A) 1.8 k/uL (1.0-4.8); Lymphocytes % (A) 23 %; MCHC 31.2 g/dL (31.0-37.0); Mean Platelet Volume 8.2; Monocytes # (A) 0.4 k/uL (0-1.0); Monocytes % (A) 5 %; Neutrophils # (A) 4.9 k/uL (1.3-7.7); Neutrophils % (A) 64 %; Platelet Count 373 k/uL (150-450); RBC 3.82 m/uL (3.80-5.40); RDW 13.8 % (11.5-15.5); WBC 7.7 k/uL (3.8-10.6)
[2018-03-12 07:45] LABS: INR 0.9 (<1.2); Partial Thromboplastin Time 24.2 sec (22.0-30.0); Prothrombin Time 9.6 sec (9.0-12.0)
[2018-03-12 08:26] LABS: ALT 21 U/L (9-52); AST 25 U/L (14-36); Albumin 3.8 g/dL (3.5-5.0); Alkaline Phosphatase 90 U/L (38-126); Anion Gap 7 mmol/L; Blood Urea Nitrogen 13 mg/dL (7-17); Calcium 9.3 mg/dL (8.4-10.2); Carbon Dioxide 29 mmol/L (22-30); Chloride 106 mmol/L (98-107); Glucose 96 mg/dL (74-99); Potassium 4.9 mmol/L (3.5-5.1); Sodium 142 mmol/L (137-145); Total Bilirubin 0.4 mg/dL (0.2-1.3); Total Protein 6.7 g/dL (6.3-8.2)
[2018-03-12] MEDS: ASPIRIN 325 MG TAB PO SCH (08:38)
[2018-03-12] MEDS: ATORVASTATIN 20 MG TAB PO SCH (08:38)
[2018-03-12] MEDS: ISOSORBIDE MONONITRATE ER 15 MG TAB PO SCH (08:38)
[2018-03-12] MEDS: METOPROLOL SUCCINATE (ER) 25 MG TAB.ER.24H PO SCH (08:38)
[2018-03-12] MEDS: MUPIROCIN 2% OINT 22 GM TUBE NASAL SCH ×2 (08:39→22:43)
--- NOTE | 2018-03-12 11:59 | P.PN ---
Subjective Progress Note Date: 03/12/18 Principal diagnosis: Severe triple-vessel coronary artery disease This is a pleasant 78-year-old female patient who sees Dr. Patel in the office as an outpatient who was experiencing recently chest discomfort concerning for angina and underwent a heart catheterization and that revealed severe triple-vessel coronary artery disease. The patient was seen and evaluated by the cardiothoracic surgeon who agreed to proceed with coronary artery bypass grafting. The patient is scheduled to have the surgery this coming Tuesday. On follow-up with her today, March 122018, she remains asymptomatic from a cardiovascular standpoint of view. No chest pain or discomfort and no shortness of breath. She is going to have an open heart surgery tomorrow morning. Objective - Vital Signs Vital signs: Vital Signs Temp 98.0 F 03/12/18 08:00 Pulse 87 03/12/18 08:00 Resp 16 03/12/18 08:00 BP 111/63 03/12/18 08:00 Pulse Ox 97 03/12/18 08:00 Intake & Output 03/11/18 03/12/18 03/12/18 18:59 06:59 18:59 Intake Total 240 240 Output Total 90 900 Balance 150 -900 240 Weight 39 kg Intake: Oral 240 240 Output: Urine 90 900 Other: # Voids 0 1 - Constitutional General appearance: Present: no acute distress - Respiratory Respiratory: bilateral: CTA - Cardiovascular Rhythm: regular Heart sounds: normal: S1, S2 - Labs CBC & Chem 7: 03/12/18 06:38 03/12/18 06:38 Labs: Abnormal Lab Results - Last 24 Hours (Table) 03/12/18 Range/Units 06:38 Hgb 10.7 L (11.4-16.0) gm/dL Assessment and Plan Assessment: Assessment #1 severe triple-vessel coronary artery disease #2 hypertension #3 dyslipidemia Plan #1 continue the current medical regimen including aspirin, statin, beta lobito #2 follow-up with the patient
--- NOTE | 2018-03-12 12:55 | P.PN ---
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 Patient is currently sitting up to the bedside chair in her room on 3 S. cardiac stepdown unit. She has multiple family members present including her , and 2 daughters. The patient and her family had multiple questions that were answered to the best of my ability. She denies any complaints of chest pain or shortness of breath at this time. Reviewed preoperative instructions with the patient and and her family. She is scheduled for myocardial revascularization surgery tomorrow 03/13/2018 to be perform by Dr. Her. Objective - Vital Signs Vital signs: Vital Signs Temp 98.0 F 03/12/18 08:00 Pulse 87 03/12/18 08:00 Resp 16 03/12/18 08:00 BP 111/63 03/12/18 08:00 Pulse Ox 97 03/12/18 08:00 Intake & Output 03/11/18 03/12/18 03/12/18 18:59 06:59 18:59 Intake Total 240 240 Output Total 90 900 Balance 150 -900 240 Weight 39 kg Intake: Oral 240 240 Output: Urine 90 900 Other: # Voids 0 1 - Constitutional General appearance: Present: cooperative, no acute distress, thin - Respiratory Details: Lung sounds are essentially clear throughout. Respirations are symmetrical and nonlabored. - Cardiovascular Details: Regular rhythm and rate. S1 and S2 present, negative for S3, gallop or murmur. Remote telemetry showing normal sinus rhythm heart rate 87. No edema present. - Gastrointestinal Gastrointestinal Comment(s): Abdomen is soft, nontender and nondistended. Active bowel sounds to all 4 abdominal quadrants. No guarding or rigidity. No organomegaly. - Genitourinary Genitourinary Comment(s): Voiding clear yellow urine. - Integumentary Integumentary Comment(s): skin is warm and dry. No clubbing or cyanosis present. No rash or abnormal pigmentation present. - Neurologic Neurologic: Present: CNII-XII intact - Musculoskeletal Musculoskeletal: Present: gait normal, strength equal bilaterally - Psychiatric Psychiatric: Present: A&O x's 3, appropriate affect, intact judgment & insight - Allied health notes Allied health notes reviewed: nursing - Labs CBC & Chem 7: 03/12/18 06:38 03/12/18 06:38 Labs: Abnormal Lab Results - Last 24 Hours (Table) 03/12/18 Range/Units 06:38 Hgb 10.7 L (11.4-16.0) gm/dL Assessment and Plan (1) Coronary artery disease Current Visit: Yes Status: Acute Code(s): I25.10 - ATHSCL HEART DISEASE OF PLATINUM CORONARY ARTERY W/O ANG PCTRS SNOMED Code(s): 33555199 (2) Left main coronary artery disease Current Visit: Yes Status: Acute Code(s): I25.10 - ATHSCL HEART DISEASE OF PLATINUM CORONARY ARTERY W/O ANG PCTRS SNOMED Code(s): 341376655 (3) Family history of premature coronary artery disease Current Visit: Yes Status: Chronic Code(s): Z82.49 - FAMILY HX OF ISCHEM HEART DIS AND OTH DIS OF THE CIRC SYS SNOMED Code(s): 438648049 (4) Hyperlipidemia Current Visit: Yes Status: Chronic Code(s): E78.5 - HYPERLIPIDEMIA, UNSPECIFIED SNOMED Code(s): 60449272 Plan: 1. Continue to maximize medical therapy with aspirin, statin and beta lobito. 2. Pulmonary function test completed which shows a FEV1 predicted value of 136% . 3. Encourage use of her incentive spirometry every hour while awake. 4. Preoperative teaching reinforced, questions answered. 5. She is currently scheduled for coronary artery bypass grafting surgery with left internal mammary artery and endoscopic vein harvest on 03/13/2018 to be performed by Dr. Her. 6. Medical management per primary care service and cardiology. 7. More recommendations to follow based on patient's clinical course. Time with Patient: Greater than 30
[2018-03-12] MEDS: SENNOSIDES 8.6 MG TAB PO SCH (20:59)
[2018-03-12] MEDS: MAGNESIUM OXIDE 400 MG TAB PO SCH (20:59)
[2018-03-13] MEDS ORDERED: ASPIRIN 325 MG TAB PO ONE (05:00)
[2018-03-13] MEDS ORDERED: NOREPINEPHRINE 4 MG in SODIUM CHLORIDE 0.9% 250 ML IV SCH ×2 (05:00→13:50)
[2018-03-13] MEDS ORDERED: DEXTROSE 5% IN WATER 1,000 ML with POTASSIUM CHLORIDE 110 MEQ, MAGNESIUM SULFATE 16 MEQ... IV SCH ×5 (05:00)
[2018-03-13] MEDS ORDERED: TRANEXAMIC ACID 2,000 MG in SODIUM CHLORIDE 0.9% 180 ML IV ONE (05:00)
[2018-03-13] MEDS ORDERED: CLEVIDIPINE BUTYRATE 25 MG in EMPTY BAG 1 BAG IV ONE (05:00)
[2018-03-13] MEDS ORDERED: INSULIN REGULAR 100 UNIT in SODIUM CHLORIDE 0.9% 100 ML IV ONE (05:00)
[2018-03-13] MEDS ORDERED: HEPARIN SODIUM,PORCINE 5,000 UNIT in SODIUM CHLORIDE 0.9% 500 ML 500 ML IV ONE (05:00)
[2018-03-13] MEDS ORDERED: ceFAZolin 2 GM in SODIUM CHLORIDE 0.9% 30 ML IVPB ONE (05:00)
[2018-03-13] MEDS ORDERED: MAGNESIUM SULFATE SYG 4.06 MEQ/ML SYRINGE IV ONE (05:00)
[2018-03-13] MEDS ORDERED: PHENYLEPHRINE-0.9% NACL SYG 1 MG/10 ML SYRINGE IV ONE ×4 (05:00)
[2018-03-13] MEDS ORDERED: PHENYLEPHRINE 40 MG in SODIUM CHLORIDE 0.9% 250 ML IV ONE (05:00)
[2018-03-13] MEDS ORDERED: CALCIUM CHLORIDE 100 MG/ML 10 ML SYRINGE IVP ONE (05:00)
[2018-03-13] MEDS ORDERED: ALBUMIN HUMAN 25% 50 ML in EMPTY BAG 1 BAG IVPB ONE (05:00)
[2018-03-13] MEDS ORDERED: DEXTROSE 5% IN WATER 1,000 ML with POTASSIUM CHLORIDE 25 MEQ, SODIUM CHLORIDE 2.5MEQ/ML... IV SCH ×6 (05:00)
[2018-03-13] MEDS ORDERED: CHLORHEXIDINE GLUCONATE 15 ML CUP MUCOUS MEM ONE (05:00)
[2018-03-13] MEDS ORDERED: SODIUM BICARB 8.4% 50 ML VIAL (1 MEQ/ML) IV ONE (05:00)
[2018-03-13] MEDS ORDERED: NITROGLYCERIN-D5W PMX 50 MG in DEXTROSE/WATER 1 250ML.BAG IV ONE (05:00)
[2018-03-13] MEDS ORDERED: MANNITOL 25% 12.5 GM/50 ML VIAL IV ONE ×2 (05:00)
[2018-03-13] MEDS ORDERED: ATORVASTATIN 10 MG TAB PO ONE (05:00)
[2018-03-13] MEDS ORDERED: PROPOFOL 1,000 MG in EMPTY BAG 1 BAG IV ONE (05:00)
[2018-03-13] MEDS ORDERED: NITROGLYCERIN-D5W PMX 25 MG/250 ML BTL IV ONE (05:00)
[2018-03-13] MEDS ORDERED: PAPAVERINE 360 MG in SODIUM CHLORIDE 0.9% 90 ML IV ONE (05:00)
[2018-03-13] MEDS ORDERED: SODIUM CHLORIDE 0.9% 1,000 ML IV SCH (05:00)
[2018-03-13] MEDS ORDERED: PROTAMINE SULFATE 10 MG/ML 25 ML VIAL IV ONE ×2 (05:00→07:29)
[2018-03-13] MEDS ORDERED: PROTAMINE SULFATE 250 MG in EMPTY BAG 1 BAG IV ONE (05:00)
[2018-03-13] MEDS ORDERED: HEPARIN SODIUM 1,000 UN/ML (10ML VL) IV ONE (05:00)
[2018-03-13] MEDS ORDERED: METOPROLOL TARTRATE 12.5 MG TAB PO ONE (05:00)
[2018-03-13] MEDS ORDERED: ALBUMIN HUMAN 5% 500 ML in EMPTY BAG 1 BAG IVPB ONE (05:00)
[2018-03-13] MEDS ORDERED: ceFAZolin 2,000 MG in SODIUM CHLORIDE 0.9% 30 ML IVPB ONE (05:00)
[2018-03-13] MEDS ORDERED: LACTATED RINGERS 1,000 ML IV ONE (06:24)
[2018-03-13] MEDS ORDERED: PROPOFOL 10 MG/ML 20 ML VIAL IV ONE (07:29)
[2018-03-13] MEDS ORDERED: fentaNYL (PF) 50 MCG/ML 2 ML AMP ONE (07:29)
[2018-03-13] MEDS ORDERED: MIDAZOLAM 2 MG/2 ML VIAL ONE (07:29)
[2018-03-13] MEDS ORDERED: HEPARIN SODIUM,PORCINE 10,000 UNIT/ML 1 ML VIAL ONE (07:29)
[2018-03-13] MEDS ORDERED: LIDOCAINE 1% INJ 10MG/ML (20 ML MDV) ONE (07:29)
[2018-03-13] MEDS ORDERED: SODIUM CHLORIDE 0.9% 250 ML BAG ONE (07:29)
[2018-03-13] MEDS ORDERED: CALCIUM CHLORIDE 100 MG/ML 10 ML SYRINGE ONE (07:29)
[2018-03-13] MEDS ORDERED: LACTATED RINGERS 1,000 ML BAG IV ONE (07:29)
[2018-03-13] MEDS ORDERED: VECURONIUM 10 MG VIAL IV ONE (07:29)
[2018-03-13] MEDS ORDERED: fentaNYL (PF) 50 MCG/ML 50 ML VIAL ONE (07:29)
[2018-03-13] MEDS ORDERED: MAGNESIUM SULFATE 0.5 GM/ML ONE (07:29)
[2018-03-13] MEDS ORDERED: ePHEDrine SULFATE/0.9% NACL/PF 50 MG/5 ML SYRINGE IV ONE (07:29)
[2018-03-13] MEDS ORDERED: ELECTROLYTE-R (PH 7.4) 1,000 ML IV.SOLN IV ONE (07:29)
[2018-03-13] MEDS ORDERED: TRANEXAMIC ACID 1,000 MG/10 ML VIAL ONE (07:29)
[2018-03-13 08:45] LABS: ABG HCO3 23 mmol/L (21-25); ABG PCO2 22 mmHg (35-45); ABG PO2 364 mmHg (83-108); ABG Potassium Whole Blood 3.8 mmol/L (3.4-4.5); ABG Sodium Whole Blood 138 mmol/L (135-146); ABG TCO2 24 mmol/L (19-24)
[2018-03-13] MEDS: ceFAZolin 1,000 MG in SODIUM CHLORIDE 0.9% IRRIGATIO 1,000 ML IRRIGATION ONE ×2 (09:12→14:52)
[2018-03-13 09:28] LABS: ABG Base Excess -1.8 mmol/L; ABG HCO3 25 mmol/L (21-25); ABG PCO2 49 mmHg (35-45); ABG PH 7.31 (7.35-7.45); ABG PO2 304 mmHg (83-108); ABG Potassium Whole Blood 3.8 mmol/L (3.4-4.5); ABG Sodium Whole Blood 138 mmol/L (135-146); ABG TCO2 26 mmol/L (19-24)
[2018-03-13 10:24] LABS: ABG Base Excess -1.4 mmol/L; ABG HCO3 23 mmol/L (21-25); ABG PCO2 37 mmHg (35-45); ABG PH 7.41 (7.35-7.45); ABG Potassium Whole Blood 5.9 mmol/L (3.4-4.5); ABG Sodium Whole Blood 132 mmol/L (135-146); ABG TCO2 24 mmol/L (19-24)
[2018-03-13 10:55] LABS: ABG Base Excess -1.4 mmol/L; ABG HCO3 23 mmol/L (21-25); ABG PCO2 35 mmHg (35-45); ABG PH 7.42 (7.35-7.45); ABG PO2 376 mmHg (83-108); ABG Potassium Whole Blood 5.1 mmol/L (3.4-4.5); ABG Sodium Whole Blood 133 mmol/L (135-146); ABG TCO2 24 mmol/L (19-24)
[2018-03-13 11:25] LABS: ABG Base Excess -2.4 mmol/L; ABG HCO3 22 mmol/L (21-25); ABG PCO2 32 mmHg (35-45); ABG PH 7.43 (7.35-7.45); ABG PO2 414 mmHg (83-108); ABG Potassium Whole Blood 4.4 mmol/L (3.4-4.5); ABG Sodium Whole Blood 134 mmol/L (135-146); ABG TCO2 23 mmol/L (19-24)
[2018-03-13 11:46] LABS: ABG Base Excess 1.6 mmol/L; ABG HCO3 26 mmol/L (21-25); ABG PCO2 37 mmHg (35-45); ABG PH 7.45 (7.35-7.45); ABG PO2 362 mmHg (83-108); ABG Potassium Whole Blood 4.2 mmol/L (3.4-4.5); ABG Sodium Whole Blood 137 mmol/L (135-146); ABG TCO2 27 mmol/L (19-24)
[2018-03-13] MEDS ORDERED: Magnesium Replacement Protocol 1 EACH MISC MISCELLANE PRN (13:11)
[2018-03-13] MEDS ORDERED: DEXTROSE 5% IN WATER 100 ML with AMIODARONE 150 MG IV PRN (13:11)
[2018-03-13] MEDS ORDERED: Phosphorus Replacement Protoco 1 EACH MISC MISCELLANE PRN (13:11)
[2018-03-13] MEDS ORDERED: IPRATROPIUM-ALBUTEROL 3 ML NEB INHALATION PRN (13:11)
[2018-03-13] MEDS ORDERED: AMIODARONE 450 MG in DEXTROSE 5% IN WATER 250 ML IV PRN ×2 (13:11)
[2018-03-13] MEDS ORDERED: Potassium Replacement Protocol 1 EACH MISC MISCELLANE PRN (13:11)
[2018-03-13] MEDS ORDERED: NITROGLYCERIN-D5W PMX 50 MG in DEXTROSE/WATER 1 250ML.BAG IV SCH (13:11)
[2018-03-13] MEDS ORDERED: BENZOCAINE/MENTHOL LOZENG 1 EACH LOZENGE MUCOUS MEM PRN (13:11)
[2018-03-13] MEDS ORDERED: CLEVIDIPINE BUTYRATE 25 MG in EMPTY BAG 1 BAG IV SCH (13:11)
[2018-03-13] MEDS ORDERED: PROPOFOL 1,000 MG in EMPTY BAG 1 BAG IV SCH (13:11)
[2018-03-13] MEDS ORDERED: METOCLOPRAMIDE 5 MG/ML 2 ML VIAL IVP PRN (13:11)
[2018-03-13] MEDS ORDERED: CALCIUM CHLORIDE 1,000 MG in SODIUM CHLORIDE 0.9% 100 ML IV PRN (13:11)
[2018-03-13 13:38] LABS: ABG PH 7.62 (7.35-7.45)
[2018-03-13 13:39] LABS: ABG PO2 >420 mmHg (83-108)
[2018-03-13] MEDS: MILRINONE-D5W PMX 20 MG in DEXTROSE/WATER 1 100ML.BAG IV SCH (13:50)
[2018-03-13 13:58] LABS: Glucose,Whole Blood 96 mg/dL (75-99)
[2018-03-13] MEDS: LACTATED RINGERS 1,000 ML IV SCH (14:00)
[2018-03-13 14:10] LABS: ABG Base Excess -1.5 mmol/L; ABG HCO3 25 mmol/L (21-25); ABG PCO2 49 mmHg (35-45); ABG PH 7.32 (7.35-7.45); ABG PO2 >400 mmHg (83-108); ABG TCO2 26 mmol/L (19-24)
[2018-03-13 14:11] LABS: Basophils % (A) 1 %; Eosinophils # (A) 0.2 k/uL (0-0.7); Eosinophils % (A) 2 %; HCT 32.6 % (34.0-46.0); HGB 10.5 gm/dL (11.4-16.0); Lymphocytes # (A) 1.5 k/uL (1.0-4.8); Lymphocytes % (A) 15 %; MCH 27.7 pg (25.0-35.0); MCHC 32.3 g/dL (31.0-37.0); MCV 85.8 fL (80.0-100.0); Mean Platelet Volume 8.1; Monocytes # (A) 0.5 k/uL (0-1.0); Monocytes % (A) 5 %; Neutrophils # (A) 7.4 k/uL (1.3-7.7); Neutrophils % (A) 75 %; Platelet Count 202 k/uL (150-450); RDW 14.5 % (11.5-15.5); WBC 9.8 k/uL (3.8-10.6)
[2018-03-13] MEDS ORDERED: INSULIN REGULAR 100 UNIT in SODIUM CHLORIDE 0.9% 100 ML IV SCH (14:15)
[2018-03-13 14:19] LABS: Ionized Calcium 5.1 mg/dL (4.5-5.3)
[2018-03-13] MEDS: ALBUMIN HUMAN 5% 250 ML in EMPTY BAG 1 BAG IVPB PRN ×4 (14:20→21:29)
[2018-03-13 14:22] LABS: INR 1.1 (<1.2); Partial Thromboplastin Time 32.3 sec (22.0-30.0); Prothrombin Time 11.7 sec (9.0-12.0)
[2018-03-13 14:46] LABS: ALT 32 U/L (9-52); AST 42 U/L (14-36); Albumin 1.8 g/dL (3.5-5.0); Alkaline Phosphatase 49 U/L (38-126); Anion Gap 2 mmol/L; Blood Urea Nitrogen 10 mg/dL (7-17); Calcium 7.7 mg/dL (8.4-10.2); Carbon Dioxide 24 mmol/L (22-30); Chloride 112 mmol/L (98-107); Glucose 96 mg/dL (74-99); Potassium 4.5 mmol/L (3.5-5.1); Sodium 138 mmol/L (137-145); Total Bilirubin 0.6 mg/dL (0.2-1.3); Total Protein 3.6 g/dL (6.3-8.2)
--- NOTE | 2018-03-13 15:15 | XR ---
EXAMINATION TYPE: XR chest 1V portable DATE OF EXAM: 03/13/2018 Comparison: 03/09/2018 Clinical History: 78-year-old female Post Operative Cardiac Surgery Findings: ET tube is satisfactory. NG tube courses below the diaphragm. The NG tube sidehole is at the level of the GE junction. Retained epicardial pacer. Median sternotomy wires and post-CABG clips in the media stinum. Hyperinflation. Some linear areas of atelectasis or scarring are present in the mid and lower lungs. No sizable effusion, berny consolidation, or pneumothorax. Right IJ sheath is present. [place] catheter extends to the distal right main pulmonary artery. [place] ateral chest tubes and mediastinal drain. Impression: COPD and postsurgical changes. Lines and catheters as above. Note that the NG tube sidehole is at the level of the GE junction and could be further advanced into the stomach. No definite acute process.
[2018-03-13 15:33] LABS: Glucose,Whole Blood 126 mg/dL (75-99)
[2018-03-13] MEDS ORDERED: IPRATROPIUM-ALBUTEROL 3 ML NEB INHALATION SCH (16:00)
--- NOTE | 2018-03-13 16:03 | P.PN ---
Subjective Progress Note Date: 03/13/18 Principal diagnosis: Coronary artery disease, status post coronary artery bypass grafting This 78-year-old white female patient of Dr. Figueroa, who came into the hospital for an elective heart catheterization on 03/09/2018. Patient has been having recurrent episodes of chest pain the last several months, with episodes of vomiting and tachycardia. Patient has no significant previous medical history except for hyperlipidemia, and family history of premature coronary artery disease, with father at age of 51, uncle at the age of 49, and brother with cardiomyopathy and placement of AICD at the age of 53. Patient went to see her primary care provider, she was referred to cardiology, and underwent evaluation and outpatient stress test on Tuesday03/07/2018, which was said to be abnormal with EKG changes, but no chest pain. Patient was then scheduled for cardiac catheterization on 03/09/2018 showed distal left main stenosis of 60%, with calcification, a 90% ostial LAD, 95% proximal RCA, and a significant stenosis involving the diagonal branch. Normal LV systolic function was noted. Echocardiogram showed an EF greater than 55%, mild aortic valve sclerosis no evidence of aortic regurgitation, mild tricuspid regurgitation, no evidence of pulmonary hypertension. Chest x-ray showed no acute process, showed hyperinflation suggesting COPD. She was evaluated by cardiothoracic surgery and the surgical intervention was recommended, patient is scheduled for coronary artery bypass grafting on Tuesday03/13/2018. Lab work showed white count of 5.9, hemoglobin of 9.7, electro [place] profile were within normal limits, relation profile was normal, LFTs were within normal limits, hemoglobin A1c was 5.7, urinalysis showed trace blood, no evidence of infection. Vision is a lifetime nonsmoker, she denies any history of chronic lung disease. Preop PFT showed an FEV1 2.36 L or 136% of predicted. Patient is ambulating without any difficulty, denies any chest pain or shortness of breath with activity, she states she has been having her chest pain episodes mostly at night. At least, comfortable, vital signs are stable, room air pulse ox is 98%. On 08/03/2018 patient seen in follow-up in the intensive care unit, she is status post three-vessel bypass grafting with MARSHALL to LAD, SVG to the PDA and obtuse marginal. Is postop day 0, patient is seen in the intensive care unit in the postoperative period, she is sedated, intubated on mechanical ventilator , postop blood gases showed pO2 of 400, pCO2 49, pH of 7.32, this was done on SIMV mode of ventilation, with a rate of 12, tidal volume of 350, FiO2 was 100% and PEEP of 5. Patient was then switched to assist control mode of ventilation , with a rate of 16, tidal vital 350, FiO2 of 40% and PEEP of 5. Maintenance IV fluid is lactated Ringer's at rate of 50, the Levophed is at 2 mics per minute, nitroglycerin drip is at 5 mics per kilo per minute, Primacor is currently at 0.375 mics per kilo per minute. Patient is paced via epicardial wires, 80 BPM, at a rate of DDD. Cardiac output and cardiac index were 3.1 and 2.2 respectively. Underlying rhythm is sinus rhythm with a rate of 60 BPM. Urine output is pale and dilated, patient is nonoliguric, patient has left and right pleural chest tubes connected with A Y connection, and one mediastinal chest tube, there has been 121 mL of sanguinous output from the bilateral chest tubes, and 45 ML of 6 segments output from the mediastinal chest tube. Was a blood work has been reviewed, white blood cell count was 9.8, hemoglobin is 10.5 , patient did receive 2 units of packed red blood cells in the operating room, electrolytes and renal profile were unremarkable. Chest x-ray showed a ET, NG tube in satisfactory positions. Background of COPD, and postsurgical changes. No definite acute process Objective - Vital Signs Vital signs: Vital Signs Temp 97.4 F L 03/13/18 04:00 Pulse 80 03/13/18 15:15 Resp 12 03/13/18 15:15 BP 117/56 03/13/18 06:17 Pulse Ox 100 03/13/18 15:15 Intake & Output 03/12/18 03/13/18 03/13/18 18:59 06:59 18:59 Intake Total 662 656.941 Output Total 2800 Balance 662 -2143.059 Weight 42.8 kg Intake: IV 32 Intake, IV Titration 4.941 Amount Propofol 1,000 mg In 4.941 Empty Bag 1 bag @ Titrate IV .Q0M [facility] Rx#: [id number] Oral 662 Blood Product 620 Rc Irr As1 Unit 310 [id number] Rc Pheresis As-3 Unit 310 [id number] Output: Urine 800 Estimated Blood Loss 1999 Other: # Voids 2 1 ABP, PAP, CO, CI - Last Documented Arterial Blood Pressure 129/61 Pulmonary Artery Pressure 34/18 Cardiac Output 3.1 - Exam GENERAL EXAM: Sedated, intubated 78-year-old white female comfortable in no apparent distress. HEAD: Normocephalic/atraumatic. EYES: Normal reaction of pupils, equal size. Conjunctiva pink, sclera white. NOSE: Clear with pink turbinates. THROAT: No erythema or exudates. NECK: No masses, no JVD, no thyroid enlargement, no adenopathy. CHEST: No chest wall deformity. Symmetrical expansion. Menstrual incision is clean dry and intact, two bilateral pleural chest tubes connected to St. Pleur- evac, with 140 mL of saline was output, and one mediastinal chest tube with 45 mL of synchronous output, no air leak. Epicardial wires to external pacemaker, at DDD mode with a rate of 80 BPM LUNGS: Equal air entry with no crackles, wheeze, rhonchi or dullness. CVS: Regular rate and rhythm, normal S1 and S2, no gallops, no murmurs, no rubs ABDOMEN: Soft, nontender. No hepatosplenomegaly, normal bowel sounds, no guarding or rigidity. EXTREMITIES: No clubbing, no edema, no cyanosis, 2+ pulses and upper and lower extremities. MUSCULOSKELETAL: Muscle strength and tone normal. SPINE: No scoliosis or deformity SKIN: No rashes CENTRAL NERVOUS SYSTEM: Sedated, and intubated. No focal deficits, tone is normal in all 4 extremities. - Labs CBC & Chem 7: 03/13/18 14:00 03/13/18 14:00 Labs: Abnormal Lab Results - Last 24 Hours (Table) 03/12/18 03/13/18 03/13/18 Range/Units 06:38 08:44 09:28 Hgb (11.4-16.0) gm/dL Hct (34.0-46.0) % APTT (22.0-30.0) sec ABG pH 7.62 H* 7.31 L (7.35-7.45) ABG pCO2 22 L 49 H (35-45) mmHg ABG pO2 364 H 304 H (83-108) mmHg ABG HCO3 (21-25) mmol/L ABG Total CO2 26 H (19-24) mmol/L ABG O2 Saturation 100.0 H 100.0 H (94-97) % ABG Hematocrit 25 L 27 L (34.0-46.0) % ABG Sodium (135-146) mmol/L ABG Potassium (3.4-4.5) mmol/L ABG Ionized Calcium (4.5-5.3) mg/dL ABG Glucose 118 H (75-99) mg/dL ABG Lactic Acid (0.5-1.6) mmol/L Hemoglobin 8.2 L 9.0 L (11.4-16.0) gm/dL Chloride (98-107) mmol/L Creatinine (0.52-1.04) mg/dL POC Glucose (mg/dL) (75-99) mg/dL Calcium (8.4-10.2) mg/dL Magnesium (1.6-2.3) mg/dL AST (14-36) U/L Total Protein (6.3-8.2) g/dL Albumin (3.5-5.0) g/dL Arterial Blood Potassium (3.4-4.5) mmol/L Arterial Blood Glucose 118 H (75-99) mg/dL Crossmatch See Detail 03/13/18 03/13/18 03/13/18 Range/Units 10:23 10:55 11:24 Hgb (11.4-16.0) gm/dL Hct (34.0-46.0) % APTT (22.0-30.0) sec ABG pH (7.35-7.45) ABG pCO2 32 L (35-45) mmHg ABG pO2 >420 H 376 H 414 H (83-108) mmHg ABG HCO3 (21-25) mmol/L ABG Total CO2 (19-24) mmol/L ABG O2 Saturation 100.0 H 100.0 H 100.0 H (94-97) % ABG Hematocrit 17 L* 20 L* 20 L* (34.0-46.0) % ABG Sodium 132 L 133 L 134 L (135-146) mmol/L ABG Potassium 5.9 H 5.1 H (3.4-4.5) mmol/L ABG Ionized Calcium 4.0 L 4.0 L 3.9 L (4.5-5.3) mg/dL ABG Glucose 222 H 210 H 169 H (75-99) mg/dL ABG Lactic Acid 1.7 H 2.3 H* (0.5-1.6) mmol/L Hemoglobin 5.6 L* 6.6 L* 6.4 L* (11.4-16.0) gm/dL Chloride (98-107) mmol/L Creatinine (0.52-1.04) mg/dL POC Glucose (mg/dL) (75-99) mg/dL Calcium (8.4-10.2) mg/dL Magnesium (1.6-2.3) mg/dL AST (14-36) U/L Total Protein (6.3-8.2) g/dL Albumin (3.5-5.0) g/dL Arterial Blood Potassium 5.9 H 5.1 H (3.4-4.5) mmol/L Arterial Blood Glucose 222 H 210 H 169 H (75-99) mg/dL Crossmatch 03/13/18 03/13/18 03/13/18 Range/Units 11:46 13:59 14:00 Hgb 10.5 L (11.4-16.0) gm/dL Hct 32.6 L (34.0-46.0) % APTT (22.0-30.0) sec ABG pH 7.32 L (7.35-7.45) ABG pCO2 49 H (35-45) mmHg ABG pO2 362 H >400 H (83-108) mmHg ABG HCO3 26 H (21-25) mmol/L ABG Total CO2 27 H 26 H (19-24) mmol/L ABG O2 Saturation 100.0 H 100.0 H (94-97) % ABG Hematocrit 19 L* (34.0-46.0) % ABG Sodium (135-146) mmol/L ABG Potassium (3.4-4.5) mmol/L ABG Ionized Calcium 4.0 L (4.5-5.3) mg/dL ABG Glucose 152 H (75-99) mg/dL ABG Lactic Acid 2.8 H* (0.5-1.6) mmol/L Hemoglobin 6.3 L* (11.4-16.0) gm/dL Chloride (98-107) mmol/L Creatinine (0.52-1.04) mg/dL POC Glucose (mg/dL) (75-99) mg/dL Calcium (8.4-10.2) mg/dL Magnesium (1.6-2.3) mg/dL AST (14-36) U/L Total Protein (6.3-8.2) g/dL Albumin (3.5-5.0) g/dL Arterial Blood Potassium (3.4-4.5) mmol/L Arterial Blood Glucose 152 H (75-99) mg/dL Crossmatch 03/13/18 03/13/18 03/13/18 Range/Units 14:00 14:00 15:12 Hgb (11.4-16.0) gm/dL Hct (34.0-46.0) % APTT 32.3 H (22.0-30.0) sec ABG pH (7.35-7.45) ABG pCO2 (35-45) mmHg ABG pO2 (83-108) mmHg ABG HCO3 (21-25) mmol/L ABG Total CO2 (19-24) mmol/L ABG O2 Saturation (94-97) % ABG Hematocrit (34.0-46.0) % ABG Sodium (135-146) mmol/L ABG Potassium (3.4-4.5) mmol/L ABG Ionized Calcium (4.5-5.3) mg/dL ABG Glucose (75-99) mg/dL ABG Lactic Acid (0.5-1.6) mmol/L Hemoglobin (11.4-16.0) gm/dL Chloride 112 H (98-107) mmol/L Creatinine 0.49 L (0.52-1.04) mg/dL POC Glucose (mg/dL) 126 H (75-99) mg/dL Calcium 7.7 L (8.4-10.2) mg/dL Magnesium 3.0 H (1.6-2.3) mg/dL AST 42 H (14-36) U/L Total Protein 3.6 L (6.3-8.2) g/dL Albumin 1.8 L (3.5-5.0) g/dL Arterial Blood Potassium (3.4-4.5) mmol/L Arterial Blood Glucose (75-99) mg/dL Crossmatch Assessment and Plan Plan: Assessment: #1. Symptomatic multi-vessel coronary artery disease, with the left main stenosis of 60%, ostial LAD stenosis 80-90% with a diagonal branch showing 80% stenosis, and RCA with 95% proximal stenosis. Status post three-vessel coronary bypass grafting, with MARSHALL to LAD, SVG to PDA and obtuse marginal, postop day 0 #2. Postoperative blood loss anemia, an expected outcome of cardiac bypass surgery, status post transfusion with 2 units of packed red blood cells #3. Routine postoperative ventilator management #4. Hyperlipidemia #5. Family history of premature coronary artery disease #6. Lifelong nonsmoker Plan: Post-op chest x-ray and blood gases were reviewed with sade Ryan vent adjustments were made. Continue with nebulized bronchodilators, will proceed with the spontaneous breathing trials once the patient is awake and following commands, spirometer to the bedside, deep breathing and coughing, daily chest x-rays and blood work. We'll continue to closely follow I performed a history & physical examination of the patient and discussed their management with my nurse practitioner, Maureen Strong. I reviewed the nurse practitioner's note and agree with the documented findings and plan of care. Lung sounds are positive for clear breath sounds. The findings and the impression was discussed with the patient. I attest to the documentation by the nurse practitioner. Time with Patient: Greater than 30
[2018-03-13] MEDS: ceFAZolin IN SWFI 2 GM/20 ML SYRINGE IVP SCH ×2 (16:24→23:01)
[2018-03-13 16:37] LABS: Glucose,Whole Blood 120 mg/dL (75-99)
[2018-03-13 16:45] LABS: Basophils % (A) 0 %; Eosinophils # (A) 0.1 k/uL (0-0.7); Eosinophils % (A) 1 %; HCT 29.8 % (34.0-46.0); HGB 9.7 gm/dL (11.4-16.0); Lymphocytes # (A) 1.2 k/uL (1.0-4.8); Lymphocytes % (A) 13 %; MCH 28.1 pg (25.0-35.0); MCHC 32.6 g/dL (31.0-37.0); MCV 86.2 fL (80.0-100.0); Mean Platelet Volume 8.2; Monocytes # (A) 0.5 k/uL (0-1.0); Monocytes % (A) 5 %; Neutrophils % (A) 77 %; Platelet Count 183 k/uL (150-450); RBC 3.46 m/uL (3.80-5.40); RDW 14.4 % (11.5-15.5)
[2018-03-13 17:08] LABS: Glucose,Whole Blood 120 mg/dL (75-99)
--- NOTE | 2018-03-13 17:29 | OP ---
OPERATIVE REPORT DATE OF SURGERY: 03/13/2018 PREOPERATIVE DIAGNOSIS: Coronary artery disease. POSTOPERATIVE DIAGNOSIS: Coronary artery disease. PROCEDURE: 1. Coronary artery bypass grafting x3 vessels (left internal mammary artery to left anterior descending artery, saphenous vein graft to obtuse marginal artery, saphenous vein graft to posterior descending artery). 2. Endoscopic harvest of bilateral greater saphenous vein. 3. Epiaortic ultrasound. 4. Transesophageal echocardiogram. SURGEON: Meño Her MD. ASSISTANTS: 1. Conor Puente NP. 2. DAVID Judge. ANESTHESIA: General. SPECIMENS: None. COMPLICATIONS: None. INDICATION: The patient is a 78-year-old female with a past medical history significant for hyperlipidemia who reports exertional angina. Workup revealed multivessel coronary artery disease, including left main disease. Coronary artery bypass was recommended. The risks, benefits and alternatives to this procedure were discussed with the patient. All her questions were answered. Consent was obtained. FINDINGS: The left internal mammary artery was a good conduit with brisk flow. The saphenous vein was somewhat small in diameter but overall a good conduit. The LAD measured 1.5 mm. The OM measured 1.3 mm. The PDA measured 1.3 mm. The diagonal artery was too small for bypass. PROCEDURE IN DETAIL: The patient was taken to the operating room and placed supine on the operating table. After the induction of general anesthesia, she was prepped and draped in the usual sterile fashion. Of note, the patient was quite petite in nature. Preoperative transesophageal echocardiogram revealed a preserved left ventricular ejection fraction and no valvular pathology. A median sternotomy was performed. The left internal mammary artery was harvested in the standard fashion, taking care to clip all branches. Intravenous heparin was administered and the vessel was transected distally revealing brisk flow. Simultaneously, greater saphenous vein was harvested from the left lower extremity. Vein below the knee was small in diameter and not usable. Additional vein was harvested in a similar fashion from the right thigh. All branches were tied. Overall the vein was a good conduit. A pericardial cradle was created. The ascending aorta was palpated. No calcific plaque was identified in the aorta itself. There was some plaque noted at the takeoff of the innominate artery. Epiaortic ultrasound was then performed as well in the ascending aorta. Again no calcific plaque was noted. An arterial cannula was placed in the distal ascending aorta. A venous cannula was placed through the right atrial appendage and directed into the IVC. Both antegrade and retrograde catheters were placed as well. The patient was then placed on cardiopulmonary bypass with good decompression of the heart. The aortic cross-clamp was applied. Cardioplegia was delivered in both antegrade and retrograde fashion to achieve arrest of the heart. Of note, cardioplegia was delivered every 15 to 20 minutes while the patient was under cross- clamp. We began by inspecting the inferior wall. The distal right coronary artery was followed and the proximal posterior descending artery was dissected free. A small arteriotomy was created. This vessel accepted a 1.0 mm probe. Using saphenous vein in a reverse fashion, end-to-side anastomosis was created. This was performed using running 7-0 Prolene suture. The graft was hemostatic and had good flow. Next the lateral wall was inspected. The obtuse marginal was identified high as it came out of the AV groove. A small arteriotomy was created. This vessel accepted a 1 mm probe. Using saphenous vein in a reverse fashion, end-to-side anastomosis was created. This was performed using running 7-0 Prolene suture. The graft was hemostatic and had good flow. Of note, the vein used for this graft was somewhat thickened. Finally, attention was turned to the anterior surface of the heart. The diagonal artery was dissected free. It appeared to be too small for bypass. The LAD was dissected free. A small arteriotomy was created. This vessel accepted a 1.5 mm probe. Using the left internal mammary artery, an end-to-side anastomosis was created. This was performed using a running 8-0 Prolene suture in the mid portion of the LAD. The anastomosis was hemostatic. Attention was then turned to the proximal anastomoses. These were performed in an end-to- side fashion using running 6-0 Prolene sutures. One liter of warm blood was delivered in retrograde fashion. Both lidocaine and magnesium were administered as well. The aortic cross-clamp was removed. The vein grafts were de-aired in the standard fashion. Distal anastomoses were inspected and appeared to be hemostatic. Temporary atrial and ventricular pacing wires were placed and brought through the skin. The retrograde catheter was removed. The patient was then weaned off cardiopulmonary bypass. She without difficulty. Follow-up transesophageal echocardiogram revealed preserved left ventricular ejection fraction and no valvular pathology. At this point, the patient's blood pressure began to sag. The right heart seemed somewhat sluggish, but she responded to intermittent pressor doses. I decided to start low-dose Levophed and low-dose Milrinone, which helped stabilize her blood pressure. The echo at this point again revealed a normally functioning left ventricle with all bolden moving nicely and no valvular pathology. Protamine was administered. There were no adverse reactions. The remaining cannulas were then removed. The mediastinum was copiously irrigated with warm saline solution. All surgical sites were inspected and appeared to be hemostatic. Reinforcement sutures were placed as needed. Soft tissue was reapproximated over the ascending aorta. Straight 32-[place] chest tubes were placed in both the left and right pleural spaces. A straight 36-[place] chest tube was placed and directed into the mediastinum. These were all sutured to the skin using sutures. 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 It was reapproximated using stainless steel wires in a [id number] fashion. At the completion of the closure the sternum was well aligned. The remainder of the wound was closed in layers. A sterile dressing was applied. The patient appeared to tolerate the procedure well. There were no immediate complications. She returned to the ICU in critical but stable condition. MMODL / IJN: [id number] / [id number]
[2018-03-13 18:18] LABS: Glucose,Whole Blood 131 mg/dL (75-99)
[2018-03-13] MEDS: IPRATROPIUM-ALBUTEROL 3 ML NEB INHALATION SCH ×2 (18:30→19:31)
[2018-03-13] MEDS: ACETAMINOPHEN IV (For NPO) 650 MG in EMPTY BAG 1 BAG IVPB SCH ×2 (18:39→23:01)
[2018-03-13 19:06] LABS: Basophils % (A) 0 %; Eosinophils # (A) 0.1 k/uL (0-0.7); Eosinophils % (A) 1 %; HCT 27.5 % (34.0-46.0); Hypochromasia Slight; Lymphocytes # (A) 0.9 k/uL (1.0-4.8); Lymphocytes % (A) 8 %; MCH 28.1 pg (25.0-35.0); MCHC 32.5 g/dL (31.0-37.0); MCV 86.3 fL (80.0-100.0); Mean Platelet Volume 8.3; Monocytes # (A) 0.6 k/uL (0-1.0); Monocytes % (A) 6 %; Neutrophils # (A) 9.5 k/uL (1.3-7.7); Neutrophils % (A) 83 %; Platelet Count 208 k/uL (150-450); RBC 3.19 m/uL (3.80-5.40); RDW 14.5 % (11.5-15.5); WBC 11.4 k/uL (3.8-10.6)
[2018-03-13 19:12] LABS: Glucose,Whole Blood 146 mg/dL (75-99)
[2018-03-13 19:20] LABS: ABG Base Excess -2.6 mmol/L; ABG HCO3 24 mmol/L (21-25); ABG Oxygen Saturation 99.4 % (94-97); ABG PCO2 50 mmHg (35-45); ABG PH 7.29 (7.35-7.45); ABG PO2 139 mmHg (83-108); ABG TCO2 26 mmol/L (19-24)
[2018-03-13 20:26] LABS: Glucose,Whole Blood 141 mg/dL (75-99)
[2018-03-13] MEDS: HEPARIN SODIUM,PORCINE 5,000 UNIT/ML 1 ML VIAL SQ SCH (20:50)
[2018-03-13] MEDS: MUPIROCIN 2% OINT 22 GM TUBE NASAL SCH (20:50)
[2018-03-13 21:03] LABS: Glucose,Whole Blood 134 mg/dL (75-99)
[2018-03-13 22:28] LABS: Glucose,Whole Blood 124 mg/dL (75-99)
[2018-03-13 23:14] LABS: Glucose,Whole Blood 123 mg/dL (75-99)
[2018-03-13] MEDS: ONDANSETRON 4 MG/2 ML VIAL IVP PRN (23:27)
[2018-03-14 00:25] LABS: Glucose,Whole Blood 128 mg/dL (75-99)
[2018-03-14] MEDS: ALBUMIN HUMAN 5% 250 ML in EMPTY BAG 1 BAG IVPB PRN (00:31)
[2018-03-14 01:54] LABS: Glucose,Whole Blood 137 mg/dL (75-99)
[2018-03-14 02:04] LABS: Glucose,Whole Blood 130 mg/dL (75-99)
[2018-03-14 02:59] LABS: Glucose,Whole Blood 124 mg/dL (75-99)
[2018-03-14 05:07] LABS: Glucose,Whole Blood 119 mg/dL (75-99)
[2018-03-14 06:26] LABS: Glucose,Whole Blood 114 mg/dL (75-99)
[2018-03-14 06:39] LABS: Basophils % (A) 0 %; Eosinophils % (A) 0 %; HCT 22.8 % (34.0-46.0); Hypochromasia Slight; Lymphocytes # (A) 0.7 k/uL (1.0-4.8); Lymphocytes % (A) 10 %; MCH 28.2 pg (25.0-35.0); MCHC 32.7 g/dL (31.0-37.0); MCV 86.3 fL (80.0-100.0); Mean Platelet Volume 8.5; Monocytes # (A) 0.4 k/uL (0-1.0); Monocytes % (A) 6 %; Neutrophils # (A) 5.5 k/uL (1.3-7.7); Neutrophils % (A) 80 %; Platelet Count 156 k/uL (150-450); RBC 2.65 m/uL (3.80-5.40); RDW 14.6 % (11.5-15.5); WBC 6.8 k/uL (3.8-10.6)
[2018-03-14 06:45] LABS: Ionized Calcium 4.9 mg/dL (4.5-5.3)
[2018-03-14] MEDS: MILRINONE-D5W PMX 20 MG in DEXTROSE/WATER 1 100ML.BAG IV SCH (06:49)
[2018-03-14 06:50] LABS: INR 1.1 (<1.2); Partial Thromboplastin Time 34.4 sec (22.0-30.0); Prothrombin Time 11.2 sec (9.0-12.0)
[2018-03-14] MEDS: ACETAMINOPHEN IV (For NPO) 650 MG in EMPTY BAG 1 BAG IVPB SCH ×3 (06:50→21:22)
[2018-03-14 07:02] LABS: HGB 7.5 gm/dL (11.4-16.0)
[2018-03-14 07:07] LABS: ALT 25 U/L (9-52); AST 38 U/L (14-36); Albumin 2.9 g/dL (3.5-5.0); Alkaline Phosphatase 48 U/L (38-126); Anion Gap 5 mmol/L; Blood Urea Nitrogen 12 mg/dL (7-17); Calcium 8.1 mg/dL (8.4-10.2); Carbon Dioxide 23 mmol/L (22-30); Chloride 113 mmol/L (98-107); Glucose 108 mg/dL (74-99); Magnesium 2.3 mg/dL (1.6-2.3); Potassium 4.8 mmol/L (3.5-5.1); Sodium 141 mmol/L (137-145); Total Bilirubin 0.7 mg/dL (0.2-1.3); Total Protein 4.6 g/dL (6.3-8.2)
--- NOTE | 2018-03-14 07:41 | P.PN ---
Subjective Progress Note Date: 03/14/18 Principal diagnosis: Severe triple-vessel coronary artery disease This is a pleasant 78-year-old female patient who sees Dr. Patel in the office as an outpatient who was experiencing recently chest discomfort concerning for angina and underwent a heart catheterization and that revealed severe triple-vessel coronary artery disease. On follow-up with the patient today, March 142018, the patient underwent coronary artery bypass grafting 3 yesterday. She received MARSHALL to LAD, SVG to OM, and SVG to PDA of RCA. This is postoperative patient day #1. Hemodynamically she continues to be on Primacor and also she is on nitro drip and she is in process of being weaned from nitro drip. She continues to be on dual antiplatelet therapy with aspirin and Plavix and also she is on statin. She is going to be restarted on small dose of metoprolol at 12.5 mg by mouth twice a day. She has been maintaining normal sinus mechanism. The hemoglobin is above 7. Objective - Vital Signs Vital signs: Vital Signs Temp 98.2 F 03/14/18 04:00 Pulse 75 03/14/18 07:00 Resp 16 03/14/18 07:00 BP 107/58 03/14/18 07:00 Pulse Ox 100 03/14/18 07:00 Intake & Output 03/13/18 03/14/18 03/14/18 18:59 06:59 18:59 Intake Total 350.890 8959.788 28.195 Output Total 3510 841 Balance -2552.642 499.788 28.195 Weight 51.7 kg Intake: IV 282 1150 Albumin Human 5% 250 ml 500 In Empty Bag 1 bag @ 250 mls/hr IVPB Q1HR PRN Rx#: [id number] Lactated Ringers 1,000 ml 250 650 @ 50 mls/hr IV .Q20H NICO Rx#:[id number] Intake, IV Titration 55.358 190.788 28.195 Amount Insulin Regular 100 unit 2.584 6.973 In Sodium Chloride 0.9% 100 ml @ Per Protocol IV .Q0M NICO Rx#:[id number] Milrinone-D5w Pmx 20 mg 81.69 2.245 In Dextrose/Water 1 100ml .bag @ 0.375 MCG/KG/MIN 4 .81 mls/hr IV .[id number] NICO Rx#:[id number] Nitroglycerin-D5w Pmx 50 25.95 mg In Dextrose/Water 1 250ml.bag @ 5 MCG/MIN 1.5 mls/hr IV .Q24H NICO Rx#: [id number] Norepinephrine 4 mg In 47.125 102.125 Sodium Chloride 0.9% 250 ml @ Titrate IV .Q0M NICO Rx#:[id number] Propofol 1,000 mg In 5.649 Empty Bag 1 bag @ Titrate IV .Q0M NICO Rx#: [id number] Blood Product 620 Rc Irr As1 Unit 310 [id number] Rc Pheresis As-3 Unit 310 [id number] Output: Chest Tube Drainage 216 427 Bilateral Lateral Chest 141 210 Mediastinal 75 217 Urine 1294 414 Estimated Blood Loss 1999 Other: Voiding Method Indwelling Catheter Indwelling Catheter ABP, PAP, CO, CI - Last Documented Arterial Blood Pressure 125/43 Pulmonary Artery Pressure 15/8 Cardiac Output 3.7 Cardiac Index 2.7 - Constitutional General appearance: Present: no acute distress - Respiratory Respiratory: bilateral: CTA - Labs CBC & Chem 7: 03/14/18 06:20 03/14/18 06:20 Labs: Abnormal Lab Results - Last 24 Hours (Table) 03/12/18 03/13/18 03/13/18 Range/Units 06:38 08:44 09:28 WBC (3.8-10.6) k/uL RBC (3.80-5.40) m/uL Hgb (11.4-16.0) gm/dL Hct (34.0-46.0) % Neutrophils # (1.3-7.7) k/uL Lymphocytes # (1.0-4.8) k/uL APTT (22.0-30.0) sec ABG pH 7.62 H* 7.31 L (7.35-7.45) ABG pCO2 22 L 49 H (35-45) mmHg ABG pO2 364 H 304 H (83-108) mmHg ABG HCO3 (21-25) mmol/L ABG Total CO2 26 H (19-24) mmol/L ABG O2 Saturation 100.0 H 100.0 H (94-97) % ABG Hematocrit 25 L 27 L (34.0-46.0) % ABG Sodium (135-146) mmol/L ABG Potassium (3.4-4.5) mmol/L ABG Ionized Calcium (4.5-5.3) mg/dL ABG Glucose 118 H (75-99) mg/dL ABG Lactic Acid (0.5-1.6) mmol/L Hemoglobin 8.2 L 9.0 L (11.4-16.0) gm/dL Chloride (98-107) mmol/L Creatinine (0.52-1.04) mg/dL Glucose (74-99) mg/dL POC Glucose (mg/dL) (75-99) mg/dL Calcium (8.4-10.2) mg/dL Magnesium (1.6-2.3) mg/dL AST (14-36) U/L Total Protein (6.3-8.2) g/dL Albumin (3.5-5.0) g/dL Arterial Blood Potassium (3.4-4.5) mmol/L Arterial Blood Glucose 118 H (75-99) mg/dL Crossmatch See Detail 03/13/18 03/13/18 03/13/18 Range/Units 10:23 10:55 11:24 WBC (3.8-10.6) k/uL RBC (3.80-5.40) m/uL Hgb (11.4-16.0) gm/dL Hct (34.0-46.0) % Neutrophils # (1.3-7.7) k/uL Lymphocytes # (1.0-4.8) k/uL APTT (22.0-30.0) sec ABG pH (7.35-7.45) ABG pCO2 32 L (35-45) mmHg ABG pO2 >420 H 376 H 414 H (83-108) mmHg ABG HCO3 (21-25) mmol/L ABG Total CO2 (19-24) mmol/L ABG O2 Saturation 100.0 H 100.0 H 100.0 H (94-97) % ABG Hematocrit 17 L* 20 L* 20 L* (34.0-46.0) % ABG Sodium 132 L 133 L 134 L (135-146) mmol/L ABG Potassium 5.9 H 5.1 H (3.4-4.5) mmol/L ABG Ionized Calcium 4.0 L 4.0 L 3.9 L (4.5-5.3) mg/dL ABG Glucose 222 H 210 H 169 H (75-99) mg/dL ABG Lactic Acid 1.7 H 2.3 H* (0.5-1.6) mmol/L Hemoglobin 5.6 L* 6.6 L* 6.4 L* (11.4-16.0) gm/dL Chloride (98-107) mmol/L Creatinine (0.52-1.04) mg/dL Glucose (74-99) mg/dL POC Glucose (mg/dL) (75-99) mg/dL Calcium (8.4-10.2) mg/dL Magnesium (1.6-2.3) mg/dL AST (14-36) U/L Total Protein (6.3-8.2) g/dL Albumin (3.5-5.0) g/dL Arterial Blood Potassium 5.9 H 5.1 H (3.4-4.5) mmol/L Arterial Blood Glucose 222 H 210 H 169 H (75-99) mg/dL Crossmatch 03/13/18 03/13/18 03/13/18 Range/Units 11:46 13:59 14:00 WBC (3.8-10.6) k/uL RBC (3.80-5.40) m/uL Hgb 10.5 L (11.4-16.0) gm/dL Hct 32.6 L (34.0-46.0) % Neutrophils # (1.3-7.7) k/uL Lymphocytes # (1.0-4.8) k/uL APTT (22.0-30.0) sec ABG pH 7.32 L (7.35-7.45) ABG pCO2 49 H (35-45) mmHg ABG pO2 362 H >400 H (83-108) mmHg ABG HCO3 26 H (21-25) mmol/L ABG Total CO2 27 H 26 H (19-24) mmol/L ABG O2 Saturation 100.0 H 100.0 H (94-97) % ABG Hematocrit 19 L* (34.0-46.0) % ABG Sodium (135-146) mmol/L ABG Potassium (3.4-4.5) mmol/L ABG Ionized Calcium 4.0 L (4.5-5.3) mg/dL ABG Glucose 152 H (75-99) mg/dL ABG Lactic Acid 2.8 H* (0.5-1.6) mmol/L Hemoglobin 6.3 L* (11.4-16.0) gm/dL Chloride (98-107) mmol/L Creatinine (0.52-1.04) mg/dL Glucose (74-99) mg/dL POC Glucose (mg/dL) (75-99) mg/dL Calcium (8.4-10.2) mg/dL Magnesium (1.6-2.3) mg/dL AST (14-36) U/L Total Protein (6.3-8.2) g/dL Albumin (3.5-5.0) g/dL Arterial Blood Potassium (3.4-4.5) mmol/L Arterial Blood Glucose 152 H (75-99) mg/dL Crossmatch 03/13/18 03/13/18 03/13/18 Range/Units 14:00 14:00 15:12 WBC (3.8-10.6) k/uL RBC (3.80-5.40) m/uL Hgb (11.4-16.0) gm/dL Hct (34.0-46.0) % Neutrophils # (1.3-7.7) k/uL Lymphocytes # (1.0-4.8) k/uL APTT 32.3 H (22.0-30.0) sec ABG pH (7.35-7.45) ABG pCO2 (35-45) mmHg ABG pO2 (83-108) mmHg ABG HCO3 (21-25) mmol/L ABG Total CO2 (19-24) mmol/L ABG O2 Saturation (94-97) % ABG Hematocrit (34.0-46.0) % ABG Sodium (135-146) mmol/L ABG Potassium (3.4-4.5) mmol/L ABG Ionized Calcium (4.5-5.3) mg/dL ABG Glucose (75-99) mg/dL ABG Lactic Acid (0.5-1.6) mmol/L Hemoglobin (11.4-16.0) gm/dL Chloride 112 H (98-107) mmol/L Creatinine 0.49 L (0.52-1.04) mg/dL Glucose (74-99) mg/dL POC Glucose (mg/dL) 126 H (75-99) mg/dL Calcium 7.7 L (8.4-10.2) mg/dL Magnesium 3.0 H (1.6-2.3) mg/dL AST 42 H (14-36) U/L Total Protein 3.6 L (6.3-8.2) g/dL Albumin 1.8 L (3.5-5.0) g/dL Arterial Blood Potassium (3.4-4.5) mmol/L Arterial Blood Glucose (75-99) mg/dL Crossmatch 03/13/18 03/13/18 03/13/18 Range/Units 16:15 16:16 17:04 WBC (3.8-10.6) k/uL RBC 3.46 L (3.80-5.40) m/uL Hgb 9.7 L (11.4-16.0) gm/dL Hct 29.8 L (34.0-46.0) % Neutrophils # (1.3-7.7) k/uL Lymphocytes # (1.0-4.8) k/uL APTT (22.0-30.0) sec ABG pH (7.35-7.45) ABG pCO2 (35-45) mmHg ABG pO2 (83-108) mmHg ABG HCO3 (21-25) mmol/L ABG Total CO2 (19-24) mmol/L ABG O2 Saturation (94-97) % ABG Hematocrit (34.0-46.0) % ABG Sodium (135-146) mmol/L ABG Potassium (3.4-4.5) mmol/L ABG Ionized Calcium (4.5-5.3) mg/dL ABG Glucose (75-99) mg/dL ABG Lactic Acid (0.5-1.6) mmol/L Hemoglobin (11.4-16.0) gm/dL Chloride (98-107) mmol/L Creatinine (0.52-1.04) mg/dL Glucose (74-99) mg/dL POC Glucose (mg/dL) 120 H 120 H (75-99) mg/dL Calcium (8.4-10.2) mg/dL Magnesium (1.6-2.3) mg/dL AST (14-36) U/L Total Protein (6.3-8.2) g/dL Albumin (3.5-5.0) g/dL Arterial Blood Potassium (3.4-4.5) mmol/L Arterial Blood Glucose (75-99) mg/dL Crossmatch 03/13/18 03/13/18 03/13/18 Range/Units 17:59 18:43 18:56 WBC 11.4 H (3.8-10.6) k/uL RBC 3.19 L (3.80-5.40) m/uL Hgb 9.0 L (11.4-16.0) gm/dL Hct 27.5 L (34.0-46.0) % Neutrophils # 9.5 H (1.3-7.7) k/uL Lymphocytes # 0.9 L (1.0-4.8) k/uL APTT (22.0-30.0) sec ABG pH (7.35-7.45) ABG pCO2 (35-45) mmHg ABG pO2 (83-108) mmHg ABG HCO3 (21-25) mmol/L ABG Total CO2 (19-24) mmol/L ABG O2 Saturation (94-97) % ABG Hematocrit (34.0-46.0) % ABG Sodium (135-146) mmol/L ABG Potassium (3.4-4.5) mmol/L ABG Ionized Calcium (4.5-5.3) mg/dL ABG Glucose (75-99) mg/dL ABG Lactic Acid (0.5-1.6) mmol/L Hemoglobin (11.4-16.0) gm/dL Chloride (98-107) mmol/L Creatinine (0.52-1.04) mg/dL Glucose (74-99) mg/dL POC Glucose (mg/dL) 131 H 146 H (75-99) mg/dL Calcium (8.4-10.2) mg/dL Magnesium (1.6-2.3) mg/dL AST (14-36) U/L Total Protein (6.3-8.2) g/dL Albumin (3.5-5.0) g/dL Arterial Blood Potassium (3.4-4.5) mmol/L Arterial Blood Glucose (75-99) mg/dL Crossmatch 03/13/18 03/13/18 03/13/18 Range/Units 19:18 20:20 20:59 WBC (3.8-10.6) k/uL RBC (3.80-5.40) m/uL Hgb (11.4-16.0) gm/dL Hct (34.0-46.0) % Neutrophils # (1.3-7.7) k/uL Lymphocytes # (1.0-4.8) k/uL APTT (22.0-30.0) sec ABG pH 7.29 L (7.35-7.45) ABG pCO2 50 H (35-45) mmHg ABG pO2 139 H (83-108) mmHg ABG HCO3 (21-25) mmol/L ABG Total CO2 26 H (19-24) mmol/L ABG O2 Saturation 99.4 H (94-97) % ABG Hematocrit (34.0-46.0) % ABG Sodium (135-146) mmol/L ABG Potassium (3.4-4.5) mmol/L ABG Ionized Calcium (4.5-5.3) mg/dL ABG Glucose (75-99) mg/dL ABG Lactic Acid (0.5-1.6) mmol/L Hemoglobin (11.4-16.0) gm/dL Chloride (98-107) mmol/L Creatinine (0.52-1.04) mg/dL Glucose (74-99) mg/dL POC Glucose (mg/dL) 141 H 134 H (75-99) mg/dL Calcium (8.4-10.2) mg/dL Magnesium (1.6-2.3) mg/dL AST (14-36) U/L Total Protein (6.3-8.2) g/dL Albumin (3.5-5.0) g/dL Arterial Blood Potassium (3.4-4.5) mmol/L Arterial Blood Glucose (75-99) mg/dL Crossmatch 03/13/18 03/13/18 03/13/18 Range/Units 22:01 22:59 23:56 WBC (3.8-10.6) k/uL RBC (3.80-5.40) m/uL Hgb (11.4-16.0) gm/dL Hct (34.0-46.0) % Neutrophils # (1.3-7.7) k/uL Lymphocytes # (1.0-4.8) k/uL APTT (22.0-30.0) sec ABG pH (7.35-7.45) ABG pCO2 (35-45) mmHg ABG pO2 (83-108) mmHg ABG HCO3 (21-25) mmol/L ABG Total CO2 (19-24) mmol/L ABG O2 Saturation (94-97) % ABG Hematocrit (34.0-46.0) % ABG Sodium (135-146) mmol/L ABG Potassium (3.4-4.5) mmol/L ABG Ionized Calcium (4.5-5.3) mg/dL ABG Glucose (75-99) mg/dL ABG Lactic Acid (0.5-1.6) mmol/L Hemoglobin (11.4-16.0) gm/dL Chloride (98-107) mmol/L Creatinine (0.52-1.04) mg/dL Glucose (74-99) mg/dL POC Glucose (mg/dL) 124 H 123 H 128 H (75-99) mg/dL Calcium (8.4-10.2) mg/dL Magnesium (1.6-2.3) mg/dL AST (14-36) U/L Total Protein (6.3-8.2) g/dL Albumin (3.5-5.0) g/dL Arterial Blood Potassium (3.4-4.5) mmol/L Arterial Blood Glucose (75-99) mg/dL Crossmatch 03/14/18 03/14/18 03/14/18 Range/Units 01:04 02:01 02:55 WBC (3.8-10.6) k/uL RBC (3.80-5.40) m/uL Hgb (11.4-16.0) gm/dL Hct (34.0-46.0) % Neutrophils # (1.3-7.7) k/uL Lymphocytes # (1.0-4.8) k/uL APTT (22.0-30.0) sec ABG pH (7.35-7.45) ABG pCO2 (35-45) mmHg ABG pO2 (83-108) mmHg ABG HCO3 (21-25) mmol/L ABG Total CO2 (19-24) mmol/L ABG O2 Saturation (94-97) % ABG Hematocrit (34.0-46.0) % ABG Sodium (135-146) mmol/L ABG Potassium (3.4-4.5) mmol/L ABG Ionized Calcium (4.5-5.3) mg/dL ABG Glucose (75-99) mg/dL ABG Lactic Acid (0.5-1.6) mmol/L Hemoglobin (11.4-16.0) gm/dL Chloride (98-107) mmol/L Creatinine (0.52-1.04) mg/dL Glucose (74-99) mg/dL POC Glucose (mg/dL) 137 H 130 H 124 H (75-99) mg/dL Calcium (8.4-10.2) mg/dL Magnesium (1.6-2.3) mg/dL AST (14-36) U/L Total Protein (6.3-8.2) g/dL Albumin (3.5-5.0) g/dL Arterial Blood Potassium (3.4-4.5) mmol/L Arterial Blood Glucose (75-99) mg/dL Crossmatch 03/14/18 03/14/18 03/14/18 Range/Units 04:15 06:20 06:20 WBC (3.8-10.6) k/uL RBC 2.65 L (3.80-5.40) m/uL Hgb 7.5 L D (11.4-16.0) gm/dL Hct 22.8 L (34.0-46.0) % Neutrophils # (1.3-7.7) k/uL Lymphocytes # 0.7 L (1.0-4.8) k/uL APTT 34.4 H (22.0-30.0) sec ABG pH (7.35-7.45) ABG pCO2 (35-45) mmHg ABG pO2 (83-108) mmHg ABG HCO3 (21-25) mmol/L ABG Total CO2 (19-24) mmol/L ABG O2 Saturation (94-97) % ABG Hematocrit (34.0-46.0) % ABG Sodium (135-146) mmol/L ABG Potassium (3.4-4.5) mmol/L ABG Ionized Calcium (4.5-5.3) mg/dL ABG Glucose (75-99) mg/dL ABG Lactic Acid (0.5-1.6) mmol/L Hemoglobin (11.4-16.0) gm/dL Chloride (98-107) mmol/L Creatinine (0.52-1.04) mg/dL Glucose (74-99) mg/dL POC Glucose (mg/dL) 119 H (75-99) mg/dL Calcium (8.4-10.2) mg/dL Magnesium (1.6-2.3) mg/dL AST (14-36) U/L Total Protein (6.3-8.2) g/dL Albumin (3.5-5.0) g/dL Arterial Blood Potassium (3.4-4.5) mmol/L Arterial Blood Glucose (75-99) mg/dL Crossmatch 03/14/18 03/14/18 Range/Units 06:20 06:23 WBC (3.8-10.6) k/uL RBC (3.80-5.40) m/uL Hgb (11.4-16.0) gm/dL Hct (34.0-46.0) % Neutrophils # (1.3-7.7) k/uL Lymphocytes # (1.0-4.8) k/uL APTT (22.0-30.0) sec ABG pH (7.35-7.45) ABG pCO2 (35-45) mmHg ABG pO2 (83-108) mmHg ABG HCO3 (21-25) mmol/L ABG Total CO2 (19-24) mmol/L ABG O2 Saturation (94-97) % ABG Hematocrit (34.0-46.0) % ABG Sodium (135-146) mmol/L ABG Potassium (3.4-4.5) mmol/L ABG Ionized Calcium (4.5-5.3) mg/dL ABG Glucose (75-99) mg/dL ABG Lactic Acid (0.5-1.6) mmol/L Hemoglobin (11.4-16.0) gm/dL Chloride 113 H (98-107) mmol/L Creatinine (0.52-1.04) mg/dL Glucose 108 H (74-99) mg/dL POC Glucose (mg/dL) 114 H (75-99) mg/dL Calcium 8.1 L (8.4-10.2) mg/dL Magnesium (1.6-2.3) mg/dL AST 38 H (14-36) U/L Total Protein 4.6 L (6.3-8.2) g/dL Albumin 2.9 L (3.5-5.0) g/dL Arterial Blood Potassium (3.4-4.5) mmol/L Arterial Blood Glucose (75-99) mg/dL Crossmatch Assessment and Plan Assessment: Assessment #1 severe triple-vessel coronary artery disease #2 hypertension #3 dyslipidemia Plan #1 the patient is status post CABG 3 #2 the right wean her from the nitro drip #3 the right wean her from the Primacor #4 continue dual antiplatelet therapy and high intensity statin #4 start the patient on small dose of beta lobito with metoprolol
--- NOTE | 2018-03-14 07:50 | P.PN ---
Progress Note - Text The patient is a 78-year-old female who underwent triple bypass surgery yesterday. Consisting of MARSHALL to the LAD, SVG to the OM and SVG to PDA of the right coronary artery. The patient is presently sitting up at the side of the bed. Alert and oriented. Family present. Vital signs show a blood pressure of 125/43 arterially. Peripherally 107/58. Pulse is 75 and respirations 16. Heart tones are regular. Breath sounds are diminished at bases. She is using her incentive spirometry. Minimal edema. No focal neurological deficits. Laboratory White count 6.8 with a hemoglobin 7.5 and a platelet count of 156. INR is 1.1. Sodium 141 with potassium 4.8 and CO2 content 23. GFR is greater than 90. Blood sugar was 114. Albumin 2.9 Impressions and plans Patient overall appears to be doing well post coronary artery bypass surgery yesterday. She is alert and oriented. Patient is still on nitro and vasopressors for which she is being weaned. Cardiology note regarded. Progress as per cardiology and thoracic surgery.
[2018-03-14] MEDS: IPRATROPIUM-ALBUTEROL 3 ML NEB INHALATION SCH ×4 (08:04→19:32)
--- NOTE | 2018-03-14 08:06 | P.PN ---
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 Previous medical history of hyperlipidemia and family history of premature coronary artery disease. POD #1 urgent coronary artery bypass grafting 3 vessels, left internal mammary artery to the left anterior descending artery, reverse saphenous vein graft to the obtuse marginal artery, reverse saphenous vein graft to posterior descending artery. Endoscopic harvesting of bilateral greater saphenous veins. Epi-aortic ultrasound. Intraoperative transesophageal echocardiogram. Postoperative acute blood loss, expected outcome secondary to cardiopulmonary bypass pump and hemodilution. The patient's currently sitting up in the recliner in no acute distress. She was successfully extubated last night at 20:08. She denies any pain or shortness of breath. She is hemodynamically stable. Levo has been off since approximately 5:30 this morning. Currently on Primacor and IV nitro. She has no new concerns. Objective - Vital Signs Vital signs: Vital Signs Temp 98.2 F 03/14/18 04:00 Pulse 75 03/14/18 07:00 Resp 16 03/14/18 07:00 BP 107/58 03/14/18 07:00 Pulse Ox 100 03/14/18 07:00 Intake & Output 03/13/18 03/14/18 03/14/18 18:59 06:59 18:59 Intake Total 559.713 5583.788 28.195 Output Total 3510 841 Balance -2552.642 499.788 28.195 Weight 51.7 kg Intake: IV 282 1150 Albumin Human 5% 250 ml 500 In Empty Bag 1 bag @ 250 mls/hr IVPB Q1HR PRN Rx#: [id number] Lactated Ringers 1,000 ml 250 650 @ 50 mls/hr IV .Q20H [facility] Rx#:[id number] Intake, IV Titration 55.358 190.788 28.195 Amount Insulin Regular 100 unit 2.584 6.973 In Sodium Chloride 0.9% 100 ml @ Per Protocol IV .Q0M [facility] Rx#:[id number] Milrinone-D5w Pmx 20 mg 81.69 2.245 In Dextrose/Water 1 100ml .bag @ 0.375 MCG/KG/MIN 4 .81 mls/hr IV .[id number] [facility] Rx#:[id number] Nitroglycerin-D5w Pmx 50 25.95 mg In Dextrose/Water 1 250ml.bag @ 5 MCG/MIN 1.5 mls/hr IV .Q24H [facility] Rx#: [id number] Norepinephrine 4 mg In 47.125 102.125 Sodium Chloride 0.9% 250 ml @ Titrate IV .Q0M [facility] Rx#:[id number] Propofol 1,000 mg In 5.649 Empty Bag 1 bag @ Titrate IV .Q0M [facility] Rx#: [id number] Blood Product 620 Rc Irr As1 Unit 310 [id number] Rc Pheresis As-3 Unit 310 [id number] Output: Chest Tube Drainage 216 427 Bilateral Lateral Chest 141 210 Mediastinal 75 217 Urine 1294 414 Estimated Blood Loss 1999 Other: Voiding Method Indwelling Catheter Indwelling Catheter ABP, PAP, CO, CI - Last Documented Arterial Blood Pressure 125/43 Pulmonary Artery Pressure 15/8 Cardiac Output 3.7 Cardiac Index 2.7 - Constitutional General appearance: Present: cooperative, no acute distress - Respiratory Details: Lungs sounds diminished bilaterally. Respirations even, nonlabored. Currently on 2 L nasal cannula with oxygen saturation 99%. Able to achieve 500 mL on her incentive spirometry. Strong cough. Mediastinal chest tube to continuous wall suction, 146 mL serosanguineous drainage overnight, 300 mL since surgery. Right /left pleural chest tubes to continuous wall suction, 140 mL serosanguineous drainage overnight, 450 mL since surgery. No air leaks present. - Cardiovascular Details: S1/S2 present. Regular rate and rhythm, normal sinus rhythm on telemetry. A/V epicardial pacemaker wires present, connected to generator, DDD mode with rate 70 bpm, decreased to backup rate 50 bpm. Sternum stable. Palpable peripheral pulses bilaterally. No edema present. No calf pain or tenderness noted. Right internal jugular/Cordis, right radial arterial line present. Last CO/CI 3.7/2.7 on 0.375 mcg/kg/m. Heart hugger in place with patient demonstrating appropriate use. Antiembolism stockings, SCDs present. - Gastrointestinal Gastrointestinal Comment(s): Abdomen soft, nontender, nondistended. Hypoactive bowel sounds present 4 quadrants. Tolerating sips of clear liquids. Negative flatus. - Genitourinary Genitourinary Comment(s): [place] present draining clear, yellow urine. Output 25-35 mL/h overnight, 170 mL in the last 8 hours. - Integumentary Integumentary Comment(s): Skin is warm and dry with evidence of good perfusion. Anterior chest incision well approximated and covered with dry intact dressing. Bilateral lower extremity EVH sites well approximated. - Neurologic Neurologic: Present: CNII-XII intact - Musculoskeletal Musculoskeletal: Present: gait normal, strength equal bilaterally - Psychiatric Psychiatric: Present: A&O x's 3, appropriate affect, intact judgment & insight - Allied health notes Allied health notes reviewed: nursing - Labs CBC & Chem 7: 03/14/18 06:20 03/14/18 06:20 Labs: Abnormal Lab Results - Last 24 Hours (Table) 03/12/18 03/13/18 03/13/18 Range/Units 06:38 08:44 09:28 WBC (3.8-10.6) k/uL RBC (3.80-5.40) m/uL Hgb (11.4-16.0) gm/dL Hct (34.0-46.0) % Neutrophils # (1.3-7.7) k/uL Lymphocytes # (1.0-4.8) k/uL APTT (22.0-30.0) sec ABG pH 7.62 H* 7.31 L (7.35-7.45) ABG pCO2 22 L 49 H (35-45) mmHg ABG pO2 364 H 304 H (83-108) mmHg ABG HCO3 (21-25) mmol/L ABG Total CO2 26 H (19-24) mmol/L ABG O2 Saturation 100.0 H 100.0 H (94-97) % ABG Hematocrit 25 L 27 L (34.0-46.0) % ABG Sodium (135-146) mmol/L ABG Potassium (3.4-4.5) mmol/L ABG Ionized Calcium (4.5-5.3) mg/dL ABG Glucose 118 H (75-99) mg/dL ABG Lactic Acid (0.5-1.6) mmol/L Hemoglobin 8.2 L 9.0 L (11.4-16.0) gm/dL Chloride (98-107) mmol/L Creatinine (0.52-1.04) mg/dL Glucose (74-99) mg/dL POC Glucose (mg/dL) (75-99) mg/dL Calcium (8.4-10.2) mg/dL Magnesium (1.6-2.3) mg/dL AST (14-36) U/L Total Protein (6.3-8.2) g/dL Albumin (3.5-5.0) g/dL Arterial Blood Potassium (3.4-4.5) mmol/L Arterial Blood Glucose 118 H (75-99) mg/dL Crossmatch See Detail 03/13/18 03/13/18 03/13/18 Range/Units 10:23 10:55 11:24 WBC (3.8-10.6) k/uL RBC (3.80-5.40) m/uL Hgb (11.4-16.0) gm/dL Hct (34.0-46.0) % Neutrophils # (1.3-7.7) k/uL Lymphocytes # (1.0-4.8) k/uL APTT (22.0-30.0) sec ABG pH (7.35-7.45) ABG pCO2 32 L (35-45) mmHg ABG pO2 >420 H 376 H 414 H (83-108) mmHg ABG HCO3 (21-25) mmol/L ABG Total CO2 (19-24) mmol/L ABG O2 Saturation 100.0 H 100.0 H 100.0 H (94-97) % ABG Hematocrit 17 L* 20 L* 20 L* (34.0-46.0) % ABG Sodium 132 L 133 L 134 L (135-146) mmol/L ABG Potassium 5.9 H 5.1 H (3.4-4.5) mmol/L ABG Ionized Calcium 4.0 L 4.0 L 3.9 L (4.5-5.3) mg/dL ABG Glucose 222 H 210 H 169 H (75-99) mg/dL ABG Lactic Acid 1.7 H 2.3 H* (0.5-1.6) mmol/L Hemoglobin 5.6 L* 6.6 L* 6.4 L* (11.4-16.0) gm/dL Chloride (98-107) mmol/L Creatinine (0.52-1.04) mg/dL Glucose (74-99) mg/dL POC Glucose (mg/dL) (75-99) mg/dL Calcium (8.4-10.2) mg/dL Magnesium (1.6-2.3) mg/dL AST (14-36) U/L Total Protein (6.3-8.2) g/dL Albumin (3.5-5.0) g/dL Arterial Blood Potassium 5.9 H 5.1 H (3.4-4.5) mmol/L Arterial Blood Glucose 222 H 210 H 169 H (75-99) mg/dL Crossmatch 03/13/18 03/13/18 03/13/18 Range/Units 11:46 13:59 14:00 WBC (3.8-10.6) k/uL RBC (3.80-5.40) m/uL Hgb 10.5 L (11.4-16.0) gm/dL Hct 32.6 L (34.0-46.0) % Neutrophils # (1.3-7.7) k/uL Lymphocytes # (1.0-4.8) k/uL APTT (22.0-30.0) sec ABG pH 7.32 L (7.35-7.45) ABG pCO2 49 H (35-45) mmHg ABG pO2 362 H >400 H (83-108) mmHg ABG HCO3 26 H (21-25) mmol/L ABG Total CO2 27 H 26 H (19-24) mmol/L ABG O2 Saturation 100.0 H 100.0 H (94-97) % ABG Hematocrit 19 L* (34.0-46.0) % ABG Sodium (135-146) mmol/L ABG Potassium (3.4-4.5) mmol/L ABG Ionized Calcium 4.0 L (4.5-5.3) mg/dL ABG Glucose 152 H (75-99) mg/dL ABG Lactic Acid 2.8 H* (0.5-1.6) mmol/L Hemoglobin 6.3 L* (11.4-16.0) gm/dL Chloride (98-107) mmol/L Creatinine (0.52-1.04) mg/dL Glucose (74-99) mg/dL POC Glucose (mg/dL) (75-99) mg/dL Calcium (8.4-10.2) mg/dL Magnesium (1.6-2.3) mg/dL AST (14-36) U/L Total Protein (6.3-8.2) g/dL Albumin (3.5-5.0) g/dL Arterial Blood Potassium (3.4-4.5) mmol/L Arterial Blood Glucose 152 H (75-99) mg/dL Crossmatch 03/13/18 03/13/18 03/13/18 Range/Units 14:00 14:00 15:12 WBC (3.8-10.6) k/uL RBC (3.80-5.40) m/uL Hgb (11.4-16.0) gm/dL Hct (34.0-46.0) % Neutrophils # (1.3-7.7) k/uL Lymphocytes # (1.0-4.8) k/uL APTT 32.3 H (22.0-30.0) sec ABG pH (7.35-7.45) ABG pCO2 (35-45) mmHg ABG pO2 (83-108) mmHg ABG HCO3 (21-25) mmol/L ABG Total CO2 (19-24) mmol/L ABG O2 Saturation (94-97) % ABG Hematocrit (34.0-46.0) % ABG Sodium (135-146) mmol/L ABG Potassium (3.4-4.5) mmol/L ABG Ionized Calcium (4.5-5.3) mg/dL ABG Glucose (75-99) mg/dL ABG Lactic Acid (0.5-1.6) mmol/L Hemoglobin (11.4-16.0) gm/dL Chloride 112 H (98-107) mmol/L Creatinine 0.49 L (0.52-1.04) mg/dL Glucose (74-99) mg/dL POC Glucose (mg/dL) 126 H (75-99) mg/dL Calcium 7.7 L (8.4-10.2) mg/dL Magnesium 3.0 H (1.6-2.3) mg/dL AST 42 H (14-36) U/L Total Protein 3.6 L (6.3-8.2) g/dL Albumin 1.8 L (3.5-5.0) g/dL Arterial Blood Potassium (3.4-4.5) mmol/L Arterial Blood Glucose (75-99) mg/dL Crossmatch 03/13/18 03/13/18 03/13/18 Range/Units 16:15 16:16 17:04 WBC (3.8-10.6) k/uL RBC 3.46 L (3.80-5.40) m/uL Hgb 9.7 L (11.4-16.0) gm/dL Hct 29.8 L (34.0-46.0) % Neutrophils # (1.3-7.7) k/uL Lymphocytes # (1.0-4.8) k/uL APTT (22.0-30.0) sec ABG pH (7.35-7.45) ABG pCO2 (35-45) mmHg ABG pO2 (83-108) mmHg ABG HCO3 (21-25) mmol/L ABG Total CO2 (19-24) mmol/L ABG O2 Saturation (94-97) % ABG Hematocrit (34.0-46.0) % ABG Sodium (135-146) mmol/L ABG Potassium (3.4-4.5) mmol/L ABG Ionized Calcium (4.5-5.3) mg/dL ABG Glucose (75-99) mg/dL ABG Lactic Acid (0.5-1.6) mmol/L Hemoglobin (11.4-16.0) gm/dL Chloride (98-107) mmol/L Creatinine (0.52-1.04) mg/dL Glucose (74-99) mg/dL POC Glucose (mg/dL) 120 H 120 H (75-99) mg/dL Calcium (8.4-10.2) mg/dL Magnesium (1.6-2.3) mg/dL AST (14-36) U/L Total Protein (6.3-8.2) g/dL Albumin (3.5-5.0) g/dL Arterial Blood Potassium (3.4-4.5) mmol/L Arterial Blood Glucose (75-99) mg/dL Crossmatch 03/13/18 03/13/18 03/13/18 Range/Units 17:59 18:43 18:56 WBC 11.4 H (3.8-10.6) k/uL RBC 3.19 L (3.80-5.40) m/uL Hgb 9.0 L (11.4-16.0) gm/dL Hct 27.5 L (34.0-46.0) % Neutrophils # 9.5 H (1.3-7.7) k/uL Lymphocytes # 0.9 L (1.0-4.8) k/uL APTT (22.0-30.0) sec ABG pH (7.35-7.45) ABG pCO2 (35-45) mmHg ABG pO2 (83-108) mmHg ABG HCO3 (21-25) mmol/L ABG Total CO2 (19-24) mmol/L ABG O2 Saturation (94-97) % ABG Hematocrit (34.0-46.0) % ABG Sodium (135-146) mmol/L ABG Potassium (3.4-4.5) mmol/L ABG Ionized Calcium (4.5-5.3) mg/dL ABG Glucose (75-99) mg/dL ABG Lactic Acid (0.5-1.6) mmol/L Hemoglobin (11.4-16.0) gm/dL Chloride (98-107) mmol/L Creatinine (0.52-1.04) mg/dL Glucose (74-99) mg/dL POC Glucose (mg/dL) 131 H 146 H (75-99) mg/dL Calcium (8.4-10.2) mg/dL Magnesium (1.6-2.3) mg/dL AST (14-36) U/L Total Protein (6.3-8.2) g/dL Albumin (3.5-5.0) g/dL Arterial Blood Potassium (3.4-4.5) mmol/L Arterial Blood Glucose (75-99) mg/dL Crossmatch 03/13/18 03/13/18 03/13/18 Range/Units 19:18 20:20 20:59 WBC (3.8-10.6) k/uL RBC (3.80-5.40) m/uL Hgb (11.4-16.0) gm/dL Hct (34.0-46.0) % Neutrophils # (1.3-7.7) k/uL Lymphocytes # (1.0-4.8) k/uL APTT (22.0-30.0) sec ABG pH 7.29 L (7.35-7.45) ABG pCO2 50 H (35-45) mmHg ABG pO2 139 H (83-108) mmHg ABG HCO3 (21-25) mmol/L ABG Total CO2 26 H (19-24) mmol/L ABG O2 Saturation 99.4 H (94-97) % ABG Hematocrit (34.0-46.0) % ABG Sodium (135-146) mmol/L ABG Potassium (3.4-4.5) mmol/L ABG Ionized Calcium (4.5-5.3) mg/dL ABG Glucose (75-99) mg/dL ABG Lactic Acid (0.5-1.6) mmol/L Hemoglobin (11.4-16.0) gm/dL Chloride (98-107) mmol/L Creatinine (0.52-1.04) mg/dL Glucose (74-99) mg/dL POC Glucose (mg/dL) 141 H 134 H (75-99) mg/dL Calcium (8.4-10.2) mg/dL Magnesium (1.6-2.3) mg/dL AST (14-36) U/L Total Protein (6.3-8.2) g/dL Albumin (3.5-5.0) g/dL Arterial Blood Potassium (3.4-4.5) mmol/L Arterial Blood Glucose (75-99) mg/dL Crossmatch 03/13/18 03/13/18 03/13/18 Range/Units 22:01 22:59 23:56 WBC (3.8-10.6) k/uL RBC (3.80-5.40) m/uL Hgb (11.4-16.0) gm/dL Hct (34.0-46.0) % Neutrophils # (1.3-7.7) k/uL Lymphocytes # (1.0-4.8) k/uL APTT (22.0-30.0) sec ABG pH (7.35-7.45) ABG pCO2 (35-45) mmHg ABG pO2 (83-108) mmHg ABG HCO3 (21-25) mmol/L ABG Total CO2 (19-24) mmol/L ABG O2 Saturation (94-97) % ABG Hematocrit (34.0-46.0) % ABG Sodium (135-146) mmol/L ABG Potassium (3.4-4.5) mmol/L ABG Ionized Calcium (4.5-5.3) mg/dL ABG Glucose (75-99) mg/dL ABG Lactic Acid (0.5-1.6) mmol/L Hemoglobin (11.4-16.0) gm/dL Chloride (98-107) mmol/L Creatinine (0.52-1.04) mg/dL Glucose (74-99) mg/dL POC Glucose (mg/dL) 124 H 123 H 128 H (75-99) mg/dL Calcium (8.4-10.2) mg/dL Magnesium (1.6-2.3) mg/dL AST (14-36) U/L Total Protein (6.3-8.2) g/dL Albumin (3.5-5.0) g/dL Arterial Blood Potassium (3.4-4.5) mmol/L Arterial Blood Glucose (75-99) mg/dL Crossmatch 03/14/18 03/14/18 03/14/18 Range/Units 01:04 02:01 02:55 WBC (3.8-10.6) k/uL RBC (3.80-5.40) m/uL Hgb (11.4-16.0) gm/dL Hct (34.0-46.0) % Neutrophils # (1.3-7.7) k/uL Lymphocytes # (1.0-4.8) k/uL APTT (22.0-30.0) sec ABG pH (7.35-7.45) ABG pCO2 (35-45) mmHg ABG pO2 (83-108) mmHg ABG HCO3 (21-25) mmol/L ABG Total CO2 (19-24) mmol/L ABG O2 Saturation (94-97) % ABG Hematocrit (34.0-46.0) % ABG Sodium (135-146) mmol/L ABG Potassium (3.4-4.5) mmol/L ABG Ionized Calcium (4.5-5.3) mg/dL ABG Glucose (75-99) mg/dL ABG Lactic Acid (0.5-1.6) mmol/L Hemoglobin (11.4-16.0) gm/dL Chloride (98-107) mmol/L Creatinine (0.52-1.04) mg/dL Glucose (74-99) mg/dL POC Glucose (mg/dL) 137 H 130 H 124 H (75-99) mg/dL Calcium (8.4-10.2) mg/dL Magnesium (1.6-2.3) mg/dL AST (14-36) U/L Total Protein (6.3-8.2) g/dL Albumin (3.5-5.0) g/dL Arterial Blood Potassium (3.4-4.5) mmol/L Arterial Blood Glucose (75-99) mg/dL Crossmatch 03/14/18 03/14/18 03/14/18 Range/Units 04:15 06:20 06:20 WBC (3.8-10.6) k/uL RBC 2.65 L (3.80-5.40) m/uL Hgb 7.5 L D (11.4-16.0) gm/dL Hct 22.8 L (34.0-46.0) % Neutrophils # (1.3-7.7) k/uL Lymphocytes # 0.7 L (1.0-4.8) k/uL APTT 34.4 H (22.0-30.0) sec ABG pH (7.35-7.45) ABG pCO2 (35-45) mmHg ABG pO2 (83-108) mmHg ABG HCO3 (21-25) mmol/L ABG Total CO2 (19-24) mmol/L ABG O2 Saturation (94-97) % ABG Hematocrit (34.0-46.0) % ABG Sodium (135-146) mmol/L ABG Potassium (3.4-4.5) mmol/L ABG Ionized Calcium (4.5-5.3) mg/dL ABG Glucose (75-99) mg/dL ABG Lactic Acid (0.5-1.6) mmol/L Hemoglobin (11.4-16.0) gm/dL Chloride (98-107) mmol/L Creatinine (0.52-1.04) mg/dL Glucose (74-99) mg/dL POC Glucose (mg/dL) 119 H (75-99) mg/dL Calcium (8.4-10.2) mg/dL Magnesium (1.6-2.3) mg/dL AST (14-36) U/L Total Protein (6.3-8.2) g/dL Albumin (3.5-5.0) g/dL Arterial Blood Potassium (3.4-4.5) mmol/L Arterial Blood Glucose (75-99) mg/dL Crossmatch 03/14/18 03/14/18 Range/Units 06:20 06:23 WBC (3.8-10.6) k/uL RBC (3.80-5.40) m/uL Hgb (11.4-16.0) gm/dL Hct (34.0-46.0) % Neutrophils # (1.3-7.7) k/uL Lymphocytes # (1.0-4.8) k/uL APTT (22.0-30.0) sec ABG pH (7.35-7.45) ABG pCO2 (35-45) mmHg ABG pO2 (83-108) mmHg ABG HCO3 (21-25) mmol/L ABG Total CO2 (19-24) mmol/L ABG O2 Saturation (94-97) % ABG Hematocrit (34.0-46.0) % ABG Sodium (135-146) mmol/L ABG Potassium (3.4-4.5) mmol/L ABG Ionized Calcium (4.5-5.3) mg/dL ABG Glucose (75-99) mg/dL ABG Lactic Acid (0.5-1.6) mmol/L Hemoglobin (11.4-16.0) gm/dL Chloride 113 H (98-107) mmol/L Creatinine (0.52-1.04) mg/dL Glucose 108 H (74-99) mg/dL POC Glucose (mg/dL) 114 H (75-99) mg/dL Calcium 8.1 L (8.4-10.2) mg/dL Magnesium (1.6-2.3) mg/dL AST 38 H (14-36) U/L Total Protein 4.6 L (6.3-8.2) g/dL Albumin 2.9 L (3.5-5.0) g/dL Arterial Blood Potassium (3.4-4.5) mmol/L Arterial Blood Glucose (75-99) mg/dL Crossmatch - Imaging and Cardiology Chest x-ray: image reviewed Assessment and Plan (1) Hyperlipidemia Current Visit: Yes Status: Chronic Code(s): E78.5 - HYPERLIPIDEMIA, UNSPECIFIED SNOMED Code(s): 17585976 (2) Family history of premature coronary artery disease Current Visit: Yes Status: Chronic Code(s): Z82.49 - FAMILY HX OF [place] HEART DIS AND OTH DIS OF THE CIRC SYS SNOMED Code(s): 420872584 (3) Coronary artery disease Current Visit: Yes Status: Acute Code(s): I25.10 - ATHSCL HEART DISEASE OF [place] CORONARY ARTERY W/O ANG PCTRS SNOMED Code(s): 45478118 (4) Left main coronary artery disease Current Visit: Yes Status: Acute Code(s): I25.10 - ATHSCL HEART DISEASE OF [place] CORONARY ARTERY W/O ANG PCTRS SNOMED Code(s): 734622903 Plan: 1. Continue aspirin, statin, Plavix, beta lobito therapy. Will increase beta lobito therapy as tolerated. 2. Discontinue IV nitro. Will wean IV Primacor. Once IV Primacor discontinued will discontinue Barton and connect Cordis to continuous CVP monitoring. 3. Will give 5% albumin followed by 20 mg IV Lasix 1 today. 4. Wean O2 as tolerated. Encourage incentive spirometry is 10 times every hour while awake. 5. Bronchodilators per pulmonology. 6. Increase activity, ambulate as tolerated. PT/OT/cardiac rehab following 7. Pain controlled current medication regimen. Toradol added. 8. Will monitor daily labs and x-rays. Electrolyte replacement protocol. No transfusion at this time. 9. Insulin management per primary care service. 10. GI prophylaxis with Protonix, DVT prophylaxis with subcu heparin, SCDs. 11. More recommendations to follow. Time with Patient: Greater than 30
[2018-03-14 08:08] LABS: Glucose,Whole Blood 86 mg/dL (75-99)
[2018-03-14] MEDS ORDERED: ALBUMIN HUMAN 5% 250 ML in EMPTY BAG 1 BAG IVPB STA (08:44)
[2018-03-14] MEDS ORDERED: FUROSEMIDE 10 MG/ML 2 ML VIAL IV ONE ×2 (08:44→22:02)
[2018-03-14] MEDS ORDERED: PANTOPRAZOLE 40 MG/10 ML VIAL IVP SCH (09:00)
--- NOTE | 2018-03-14 09:22 | P.PN ---
Subjective Progress Note Date: 03/14/18 Principal diagnosis: Coronary artery disease, status post coronary artery bypass grafting This 78-year-old white female patient of Dr. Figueroa, who came into the hospital for an elective heart catheterization on 03/09/2018. Patient has been having recurrent episodes of chest pain the last several months, with episodes of vomiting and tachycardia. Patient has no significant previous medical history except for hyperlipidemia, and family history of premature coronary artery disease, with father at age of 51, uncle at the age of 49, and brother with cardiomyopathy and placement of AICD at the age of 53. Patient went to see her primary care provider, she was referred to cardiology, and underwent evaluation and outpatient stress test on Tuesday03/07/2018, which was said to be abnormal with EKG changes, but no chest pain. Patient was then scheduled for cardiac catheterization on 03/09/2018 showed distal left main stenosis of 60%, with calcification, a 90% ostial LAD, 95% proximal RCA, and a significant stenosis involving the diagonal branch. Normal LV systolic function was noted. Echocardiogram showed an EF greater than 55%, mild aortic valve sclerosis no evidence of aortic regurgitation, mild tricuspid regurgitation, no evidence of pulmonary hypertension. Chest x-ray showed no acute process, showed hyperinflation suggesting COPD. She was evaluated by cardiothoracic surgery and the surgical intervention was recommended, patient is scheduled for coronary artery bypass grafting on Tuesday03/13/2018. Lab work showed white count of 5.9, hemoglobin of 9.7, electro Beaver profile were within normal limits, relation profile was normal, LFTs were within normal limits, hemoglobin A1c was 5.7, urinalysis showed trace blood, no evidence of infection. Vision is a lifetime nonsmoker, she denies any history of chronic lung disease. Preop PFT showed an FEV1 2.36 L or 136% of predicted. Patient is ambulating without any difficulty, denies any chest pain or shortness of breath with activity, she states she has been having her chest pain episodes mostly at night. At least, comfortable, vital signs are stable, room air pulse ox is 98%. On 08/03/2018 patient seen in follow-up in the intensive care unit, she is status post three-vessel bypass grafting with MARSHALL to LAD, SVG to the PDA and obtuse marginal. Is postop day 0, patient is seen in the intensive care unit in the postoperative period, she is sedated, intubated on mechanical ventilator , postop blood gases showed pO2 of 400, pCO2 49, pH of 7.32, this was done on SIMV mode of ventilation, with a rate of 12, tidal volume of 350, FiO2 was 100% and PEEP of 5. Patient was then switched to assist control mode of ventilation , with a rate of 16, tidal vital 350, FiO2 of 40% and PEEP of 5. Maintenance IV fluid is lactated Ringer's at rate of 50, the Levophed is at 2 mics per minute, nitroglycerin drip is at 5 mics per kilo per minute, Primacor is currently at 0.375 mics per kilo per minute. Patient is paced via epicardial wires, 80 BPM, at a rate of DDD. Cardiac output and cardiac index were 3.1 and 2.2 respectively. Underlying rhythm is sinus rhythm with a rate of 60 BPM. Urine output is pale and dilated, patient is nonoliguric, patient has left and right pleural chest tubes connected with A Y connection, and one mediastinal chest tube, there has been 121 mL of sanguinous output from the bilateral chest tubes, and 45 ML of 6 segments output from the mediastinal chest tube. Was a blood work has been reviewed, white blood cell count was 9.8, hemoglobin is 10.5 , patient did receive 2 units of packed red blood cells in the operating room, electrolytes and renal profile were unremarkable. Chest x-ray showed a ET, NG tube in satisfactory positions. Background of COPD, and postsurgical changes. No definite acute process On March 14, 2018 patient seen in follow-up in the intensive care unit, she is currently sitting up in the recliner, on 2 L per nasal cannula, her pulse ox is 100%, afebrile, blood pressures 107 and 58, with the PA pressures of 15/8, CVP of 5, cardiac output is 3.7, with cardiac index of 2.7. Maintenance IV fluids are lactated Ringer's at 50 ML per hour, Primacor at 0.2 mcg/kg/m, insulin drip is at 1 unit per hour. Patient is status post three-vessel coronary artery bypass grafting, postop day #1. Doing well, today's chest x- ray has been reviewed with Dr. Licona, and shows chronically elevated left hemidiaphragm, with minimal left basilar atelectasis, bilateral chest tubes, mediastinal chest tubes, PA catheter is in good location. Patient was extubated 6 hours and 10 minutes after OR exit time. She is pulling 1750 on the incentive spirometry today. Today's labs have been reviewed, white blood cell count is 6.8, hemoglobin is 7.5, sodium is 141, potassium is 4.8, chloride is 113, CO2 is 23, BUN is 12 and creatinine is 0.55. Patient has been started on clear liquid diet, tolerating it well. Chest tubes are in place, draining thin serosanguineous output, and there has been 351 mL out of the bilateral chest tubes, and 292 mL out of the mediastinal chest tubes. A shunt is producing urine, and the order of 20-50 ML per hour. Objective - Vital Signs Vital signs: Vital Signs Temp 98.2 F 03/14/18 04:00 Pulse 80 03/14/18 08:14 Resp 16 03/14/18 07:00 BP 107/58 03/14/18 07:00 Pulse Ox 100 03/14/18 07:00 Intake & Output 03/13/18 03/14/18 03/14/18 18:59 06:59 18:59 Intake Total 337.897 7924.788 28.195 Output Total 3510 841 Balance -2552.642 499.788 28.195 Weight 51.7 kg Intake: IV 282 1150 Albumin Human 5% 250 ml 500 In Empty Bag 1 bag @ 250 mls/hr IVPB Q1HR PRN Rx#: [id number] Lactated Ringers 1,000 ml 250 650 @ 50 mls/hr IV .Q20H NICO Rx#:[id number] Intake, IV Titration 55.358 190.788 28.195 Amount Insulin Regular 100 unit 2.584 6.973 In Sodium Chloride 0.9% 100 ml @ Per Protocol IV .Q0M NICO Rx#:[id number] Milrinone-D5w Pmx 20 mg 81.69 2.245 In Dextrose/Water 1 100ml .bag @ 0.375 MCG/KG/MIN 4 .81 mls/hr IV .[id number] NICO Rx#:[id number] Nitroglycerin-D5w Pmx 50 25.95 mg In Dextrose/Water 1 250ml.bag @ 5 MCG/MIN 1.5 mls/hr IV .Q24H NICO Rx#: [id number] Norepinephrine 4 mg In 47.125 102.125 Sodium Chloride 0.9% 250 ml @ Titrate IV .Q0M NICO Rx#:[id number] Propofol 1,000 mg In 5.649 Empty Bag 1 bag @ Titrate IV .Q0M NICO Rx#: [id number] Blood Product 620 Rc Irr As1 Unit 310 [id number] Rc Pheresis As-3 Unit 310 [id number] Output: Chest Tube Drainage 216 427 Bilateral Lateral Chest 141 210 Mediastinal 75 217 Urine 1294 414 Estimated Blood Loss 1999 Other: Voiding Method Indwelling Catheter Indwelling Catheter ABP, PAP, CO, CI - Last Documented Arterial Blood Pressure 125/43 Pulmonary Artery Pressure 15/8 Cardiac Output 3.7 Cardiac Index 2.7 - Exam GENERAL EXAM: 78-year-old white female comfortable in no apparent distress. Resident on 2 L per nasal cannula, with a pulse ox of 100%. HEAD: Normocephalic/atraumatic. EYES: Normal reaction of pupils, equal size. Conjunctiva pink, sclera white. NOSE: Clear with pink turbinates. THROAT: No erythema or exudates. NECK: No masses, no JVD, no thyroid enlargement, no adenopathy. CHEST: No chest wall deformity. Symmetrical expansion. Midsternal incision is clean dry and intact, two bilateral pleural chest tubes connected to St. Pleur- evac, [id number] mL of thin serosanguineous output, and one mediastinal chest tube with 292 mL of thin serosanguineous output, no air leak. Epicardial wires to external pacemaker, with a backup rate, patient is sinus rhythm on the monitor, 80 BPM. LUNGS: Equal air entry with no crackles, wheeze, rhonchi or dullness. CVS: Regular rate and rhythm, normal S1 and S2, no gallops, no murmurs, no rubs ABDOMEN: Soft, nontender. No hepatosplenomegaly, normal bowel sounds, no guarding or rigidity. EXTREMITIES: No clubbing, no edema, no cyanosis, 2+ pulses and upper and lower extremities. MUSCULOSKELETAL: Muscle strength and tone normal. SPINE: No scoliosis or deformity SKIN: No rashes CENTRAL NERVOUS SYSTEM: Awake and alert, oriented 3. No focal deficits, tone is normal in all 4 extremities. - Labs CBC & Chem 7: 03/14/18 06:20 03/14/18 06:20 Labs: Abnormal Lab Results - Last 24 Hours (Table) 03/12/18 03/13/18 03/13/18 Range/Units 06:38 08:44 09:28 WBC (3.8-10.6) k/uL RBC (3.80-5.40) m/uL Hgb (11.4-16.0) gm/dL Hct (34.0-46.0) % Neutrophils # (1.3-7.7) k/uL Lymphocytes # (1.0-4.8) k/uL APTT (22.0-30.0) sec ABG pH 7.62 H* 7.31 L (7.35-7.45) ABG pCO2 22 L 49 H (35-45) mmHg ABG pO2 364 H 304 H (83-108) mmHg ABG HCO3 (21-25) mmol/L ABG Total CO2 26 H (19-24) mmol/L ABG O2 Saturation 100.0 H 100.0 H (94-97) % ABG Hematocrit 25 L 27 L (34.0-46.0) % ABG Sodium (135-146) mmol/L ABG Potassium (3.4-4.5) mmol/L ABG Ionized Calcium (4.5-5.3) mg/dL ABG Glucose 118 H (75-99) mg/dL ABG Lactic Acid (0.5-1.6) mmol/L Hemoglobin 8.2 L 9.0 L (11.4-16.0) gm/dL Chloride (98-107) mmol/L Creatinine (0.52-1.04) mg/dL Glucose (74-99) mg/dL POC Glucose (mg/dL) (75-99) mg/dL Calcium (8.4-10.2) mg/dL Magnesium (1.6-2.3) mg/dL AST (14-36) U/L Total Protein (6.3-8.2) g/dL Albumin (3.5-5.0) g/dL Arterial Blood Potassium (3.4-4.5) mmol/L Arterial Blood Glucose 118 H (75-99) mg/dL Crossmatch See Detail 03/13/18 03/13/1819 Range/Units 10:23 10:55 11:24 WBC (3.8-10.6) k/uL RBC (3.80-5.40) m/uL Hgb (11.4-16.0) gm/dL Hct (34.0-46.0) % Neutrophils # (1.3-7.7) k/uL Lymphocytes # (1.0-4.8) k/uL APTT (22.0-30.0) sec ABG pH (7.35-7.45) ABG pCO2 32 L (35-45) mmHg ABG pO2 >420 H 376 H 414 H (83-108) mmHg ABG HCO3 (21-25) mmol/L ABG Total CO2 (19-24) mmol/L ABG O2 Saturation 100.0 H 100.0 H 100.0 H (94-97) % ABG Hematocrit 17 L* 20 L* 20 L* (34.0-46.0) % ABG Sodium 132 L 133 L 134 L (135-146) mmol/L ABG Potassium 5.9 H 5.1 H (3.4-4.5) mmol/L ABG Ionized Calcium 4.0 L 4.0 L 3.9 L (4.5-5.3) mg/dL ABG Glucose 222 H 210 H 169 H (75-99) mg/dL ABG Lactic Acid 1.7 H 2.3 H* (0.5-1.6) mmol/L Hemoglobin 5.6 L* 6.6 L* 6.4 L* (11.4-16.0) gm/dL Chloride (98-107) mmol/L Creatinine (0.52-1.04) mg/dL Glucose (74-99) mg/dL POC Glucose (mg/dL) (75-99) mg/dL Calcium (8.4-10.2) mg/dL Magnesium (1.6-2.3) mg/dL AST (14-36) U/L Total Protein (6.3-8.2) g/dL Albumin (3.5-5.0) g/dL Arterial Blood Potassium 5.9 H 5.1 H (3.4-4.5) mmol/L Arterial Blood Glucose 222 H 210 H 169 H (75-99) mg/dL Crossmatch 03/13/18 03/13/18 03/13/18 Range/Units 11:46 13:59 14:00 WBC (3.8-10.6) k/uL RBC (3.80-5.40) m/uL Hgb 10.5 L (11.4-16.0) gm/dL Hct 32.6 L (34.0-46.0) % Neutrophils # (1.3-7.7) k/uL Lymphocytes # (1.0-4.8) k/uL APTT (22.0-30.0) sec ABG pH 7.32 L (7.35-7.45) ABG pCO2 49 H (35-45) mmHg ABG pO2 362 H >400 H (83-108) mmHg ABG HCO3 26 H (21-25) mmol/L ABG Total CO2 27 H 26 H (19-24) mmol/L ABG O2 Saturation 100.0 H 100.0 H (94-97) % ABG Hematocrit 19 L* (34.0-46.0) % ABG Sodium (135-146) mmol/L ABG Potassium (3.4-4.5) mmol/L ABG Ionized Calcium 4.0 L (4.5-5.3) mg/dL ABG Glucose 152 H (75-99) mg/dL ABG Lactic Acid 2.8 H* (0.5-1.6) mmol/L Hemoglobin 6.3 L* (11.4-16.0) gm/dL Chloride (98-107) mmol/L Creatinine (0.52-1.04) mg/dL Glucose (74-99) mg/dL POC Glucose (mg/dL) (75-99) mg/dL Calcium (8.4-10.2) mg/dL Magnesium (1.6-2.3) mg/dL AST (14-36) U/L Total Protein (6.3-8.2) g/dL Albumin (3.5-5.0) g/dL Arterial Blood Potassium (3.4-4.5) mmol/L Arterial Blood Glucose 152 H (75-99) mg/dL Crossmatch 03/13/18 03/13/18 03/13/18 Range/Units 14:00 14:00 15:12 WBC (3.8-10.6) k/uL RBC (3.80-5.40) m/uL Hgb (11.4-16.0) gm/dL Hct (34.0-46.0) % Neutrophils # (1.3-7.7) k/uL Lymphocytes # (1.0-4.8) k/uL APTT 32.3 H (22.0-30.0) sec ABG pH (7.35-7.45) ABG pCO2 (35-45) mmHg ABG pO2 (83-108) mmHg ABG HCO3 (21-25) mmol/L ABG Total CO2 (19-24) mmol/L ABG O2 Saturation (94-97) % ABG Hematocrit (34.0-46.0) % ABG Sodium (135-146) mmol/L ABG Potassium (3.4-4.5) mmol/L ABG Ionized Calcium (4.5-5.3) mg/dL ABG Glucose (75-99) mg/dL ABG Lactic Acid (0.5-1.6) mmol/L Hemoglobin (11.4-16.0) gm/dL Chloride 112 H (98-107) mmol/L Creatinine 0.49 L (0.52-1.04) mg/dL Glucose (74-99) mg/dL POC Glucose (mg/dL) 126 H (75-99) mg/dL Calcium 7.7 L (8.4-10.2) mg/dL Magnesium 3.0 H (1.6-2.3) mg/dL AST 42 H (14-36) U/L Total Protein 3.6 L (6.3-8.2) g/dL Albumin 1.8 L (3.5-5.0) g/dL Arterial Blood Potassium (3.4-4.5) mmol/L Arterial Blood Glucose (75-99) mg/dL Crossmatch 03/13/18 03/13/18 03/13/18 Range/Units 16:15 16:16 17:04 WBC (3.8-10.6) k/uL RBC 3.46 L (3.80-5.40) m/uL Hgb 9.7 L (11.4-16.0) gm/dL Hct 29.8 L (34.0-46.0) % Neutrophils # (1.3-7.7) k/uL Lymphocytes # (1.0-4.8) k/uL APTT (22.0-30.0) sec ABG pH (7.35-7.45) ABG pCO2 (35-45) mmHg ABG pO2 (83-108) mmHg ABG HCO3 (21-25) mmol/L ABG Total CO2 (19-24) mmol/L ABG O2 Saturation (94-97) % ABG Hematocrit (34.0-46.0) % ABG Sodium (135-146) mmol/L ABG Potassium (3.4-4.5) mmol/L ABG Ionized Calcium (4.5-5.3) mg/dL ABG Glucose (75-99) mg/dL ABG Lactic Acid (0.5-1.6) mmol/L Hemoglobin (11.4-16.0) gm/dL Chloride (98-107) mmol/L Creatinine (0.52-1.04) mg/dL Glucose (74-99) mg/dL POC Glucose (mg/dL) 120 H 120 H (75-99) mg/dL Calcium (8.4-10.2) mg/dL Magnesium (1.6-2.3) mg/dL AST (14-36) U/L Total Protein (6.3-8.2) g/dL Albumin (3.5-5.0) g/dL Arterial Blood Potassium (3.4-4.5) mmol/L Arterial Blood Glucose (75-99) mg/dL Crossmatch 03/13/18 03/13/18 03/13/18 Range/Units 17:59 18:43 18:56 WBC 11.4 H (3.8-10.6) k/uL RBC 3.19 L (3.80-5.40) m/uL Hgb 9.0 L (11.4-16.0) gm/dL Hct 27.5 L (34.0-46.0) % Neutrophils # 9.5 H (1.3-7.7) k/uL Lymphocytes # 0.9 L (1.0-4.8) k/uL APTT (22.0-30.0) sec ABG pH (7.35-7.45) ABG pCO2 (35-45) mmHg ABG pO2 (83-108) mmHg ABG HCO3 (21-25) mmol/L ABG Total CO2 (19-24) mmol/L ABG O2 Saturation (94-97) % ABG Hematocrit (34.0-46.0) % ABG Sodium (135-146) mmol/L ABG Potassium (3.4-4.5) mmol/L ABG Ionized Calcium (4.5-5.3) mg/dL ABG Glucose (75-99) mg/dL ABG Lactic Acid (0.5-1.6) mmol/L Hemoglobin (11.4-16.0) gm/dL Chloride (98-107) mmol/L Creatinine (0.52-1.04) mg/dL Glucose (74-99) mg/dL POC Glucose (mg/dL) 131 H 146 H (75-99) mg/dL Calcium (8.4-10.2) mg/dL Magnesium (1.6-2.3) mg/dL AST (14-36) U/L Total Protein (6.3-8.2) g/dL Albumin (3.5-5.0) g/dL Arterial Blood Potassium (3.4-4.5) mmol/L Arterial Blood Glucose (75-99) mg/dL Crossmatch 03/13/18 03/13/18 03/13/18 Range/Units 19:18 20:20 20:59 WBC (3.8-10.6) k/uL RBC (3.80-5.40) m/uL Hgb (11.4-16.0) gm/dL Hct (34.0-46.0) % Neutrophils # (1.3-7.7) k/uL Lymphocytes # (1.0-4.8) k/uL APTT (22.0-30.0) sec ABG pH 7.29 L (7.35-7.45) ABG pCO2 50 H (35-45) mmHg ABG pO2 139 H (83-108) mmHg ABG HCO3 (21-25) mmol/L ABG Total CO2 26 H (19-24) mmol/L ABG O2 Saturation 99.4 H (94-97) % ABG Hematocrit (34.0-46.0) % ABG Sodium (135-146) mmol/L ABG Potassium (3.4-4.5) mmol/L ABG Ionized Calcium (4.5-5.3) mg/dL ABG Glucose (75-99) mg/dL ABG Lactic Acid (0.5-1.6) mmol/L Hemoglobin (11.4-16.0) gm/dL Chloride (98-107) mmol/L Creatinine (0.52-1.04) mg/dL Glucose (74-99) mg/dL POC Glucose (mg/dL) 141 H 134 H (75-99) mg/dL Calcium (8.4-10.2) mg/dL Magnesium (1.6-2.3) mg/dL AST (14-36) U/L Total Protein (6.3-8.2) g/dL Albumin (3.5-5.0) g/dL Arterial Blood Potassium (3.4-4.5) mmol/L Arterial Blood Glucose (75-99) mg/dL Crossmatch 03/13/18 03/13/18 03/13/18 Range/Units 22:01 22:59 23:56 WBC (3.8-10.6) k/uL RBC (3.80-5.40) m/uL Hgb (11.4-16.0) gm/dL Hct (34.0-46.0) % Neutrophils # (1.3-7.7) k/uL Lymphocytes # (1.0-4.8) k/uL APTT (22.0-30.0) sec ABG pH (7.35-7.45) ABG pCO2 (35-45) mmHg ABG pO2 (83-108) mmHg ABG HCO3 (21-25) mmol/L ABG Total CO2 (19-24) mmol/L ABG O2 Saturation (94-97) % ABG Hematocrit (34.0-46.0) % ABG Sodium (135-146) mmol/L ABG Potassium (3.4-4.5) mmol/L ABG Ionized Calcium (4.5-5.3) mg/dL ABG Glucose (75-99) mg/dL ABG Lactic Acid (0.5-1.6) mmol/L Hemoglobin (11.4-16.0) gm/dL Chloride (98-107) mmol/L Creatinine (0.52-1.04) mg/dL Glucose (74-99) mg/dL POC Glucose (mg/dL) 124 H 123 H 128 H (75-99) mg/dL Calcium (8.4-10.2) mg/dL Magnesium (1.6-2.3) mg/dL AST (14-36) U/L Total Protein (6.3-8.2) g/dL Albumin (3.5-5.0) g/dL Arterial Blood Potassium (3.4-4.5) mmol/L Arterial Blood Glucose (75-99) mg/dL Crossmatch 03/14/18 03/14/18 03/14/18 Range/Units 01:04 02:01 02:55 WBC (3.8-10.6) k/uL RBC (3.80-5.40) m/uL Hgb (11.4-16.0) gm/dL Hct (34.0-46.0) % Neutrophils # (1.3-7.7) k/uL Lymphocytes # (1.0-4.8) k/uL APTT (22.0-30.0) sec ABG pH (7.35-7.45) ABG pCO2 (35-45) mmHg ABG pO2 (83-108) mmHg ABG HCO3 (21-25) mmol/L ABG Total CO2 (19-24) mmol/L ABG O2 Saturation (94-97) % ABG Hematocrit (34.0-46.0) % ABG Sodium (135-146) mmol/L ABG Potassium (3.4-4.5) mmol/L ABG Ionized Calcium (4.5-5.3) mg/dL ABG Glucose (75-99) mg/dL ABG Lactic Acid (0.5-1.6) mmol/L Hemoglobin (11.4-16.0) gm/dL Chloride (98-107) mmol/L Creatinine (0.52-1.04) mg/dL Glucose (74-99) mg/dL POC Glucose (mg/dL) 137 H 130 H 124 H (75-99) mg/dL Calcium (8.4-10.2) mg/dL Magnesium (1.6-2.3) mg/dL AST (14-36) U/L Total Protein (6.3-8.2) g/dL Albumin (3.5-5.0) g/dL Arterial Blood Potassium (3.4-4.5) mmol/L Arterial Blood Glucose (75-99) mg/dL Crossmatch 03/14/18 03/14/18 03/14/18 Range/Units 04:15 06:20 06:20 WBC (3.8-10.6) k/uL RBC 2.65 L (3.80-5.40) m/uL Hgb 7.5 L D (11.4-16.0) gm/dL Hct 22.8 L (34.0-46.0) % Neutrophils # (1.3-7.7) k/uL Lymphocytes # 0.7 L (1.0-4.8) k/uL APTT 34.4 H (22.0-30.0) sec ABG pH (7.35-7.45) ABG pCO2 (35-45) mmHg ABG pO2 (83-108) mmHg ABG HCO3 (21-25) mmol/L ABG Total CO2 (19-24) mmol/L ABG O2 Saturation (94-97) % ABG Hematocrit (34.0-46.0) % ABG Sodium (135-146) mmol/L ABG Potassium (3.4-4.5) mmol/L ABG Ionized Calcium (4.5-5.3) mg/dL ABG Glucose (75-99) mg/dL ABG Lactic Acid (0.5-1.6) mmol/L Hemoglobin (11.4-16.0) gm/dL Chloride (98-107) mmol/L Creatinine (0.52-1.04) mg/dL Glucose (74-99) mg/dL POC Glucose (mg/dL) 119 H (75-99) mg/dL Calcium (8.4-10.2) mg/dL Magnesium (1.6-2.3) mg/dL AST (14-36) U/L Total Protein (6.3-8.2) g/dL Albumin (3.5-5.0) g/dL Arterial Blood Potassium (3.4-4.5) mmol/L Arterial Blood Glucose (75-99) mg/dL Crossmatch 03/14/18 03/14/18 Range/Units 06:20 06:23 WBC (3.8-10.6) k/uL RBC (3.80-5.40) m/uL Hgb (11.4-16.0) gm/dL Hct (34.0-46.0) % Neutrophils # (1.3-7.7) k/uL Lymphocytes # (1.0-4.8) k/uL APTT (22.0-30.0) sec ABG pH (7.35-7.45) ABG pCO2 (35-45) mmHg ABG pO2 (83-108) mmHg ABG HCO3 (21-25) mmol/L ABG Total CO2 (19-24) mmol/L ABG O2 Saturation (94-97) % ABG Hematocrit (34.0-46.0) % ABG Sodium (135-146) mmol/L ABG Potassium (3.4-4.5) mmol/L ABG Ionized Calcium (4.5-5.3) mg/dL ABG Glucose (75-99) mg/dL ABG Lactic Acid (0.5-1.6) mmol/L Hemoglobin (11.4-16.0) gm/dL Chloride 113 H (98-107) mmol/L Creatinine (0.52-1.04) mg/dL Glucose 108 H (74-99) mg/dL POC Glucose (mg/dL) 114 H (75-99) mg/dL Calcium 8.1 L (8.4-10.2) mg/dL Magnesium (1.6-2.3) mg/dL AST 38 H (14-36) U/L Total Protein 4.6 L (6.3-8.2) g/dL Albumin 2.9 L (3.5-5.0) g/dL Arterial Blood Potassium (3.4-4.5) mmol/L Arterial Blood Glucose (75-99) mg/dL Crossmatch Assessment and Plan Plan: Assessment: #1. Symptomatic multi-vessel coronary artery disease, with the left main stenosis of 60%, ostial LAD stenosis 80-90% with a diagonal branch showing 80% stenosis, and RCA with 95% proximal stenosis. Status post three-vessel coronary bypass grafting, with MARSHALL to LAD, SVG to PDA and obtuse marginal, postop day 1 #2. Postoperative blood loss anemia, an expected outcome of cardiac bypass surgery, status post transfusion with 2 units of packed red blood cells #3. Routine postoperative ventilator management, she was successfully extubated 6 hours and 10 minutes after OR exit time,on 2 L per nasal cannula tolerating extubation quite well. #4. Hyperlipidemia #5. Family history of premature coronary artery disease #6. Lifelong nonsmoker Plan: Patient is doing quite well, today's chest x-ray has been reviewed with Dr. Licona, there is chronic left hemidiaphragmatic elevation, with minimal basilar atelectasis. Patient is tolerating extubation quite well, encourage deep breathing and coughing, incentive spirometer use. Continue to follow. I performed a history & physical examination of the patient and discussed their management with my nurse practitioner, Maureen Strong. I reviewed the nurse practitioner's note and agree with the documented findings and plan of care. Lung sounds are positive for clear breath sounds. The findings and the impression was discussed with the patient. I attest to the documentation by the nurse practitioner. Time with Patient: Greater than 30
--- NOTE | 2018-03-14 09:24 | XR ---
EXAMINATION TYPE: XR chest 1V portable DATE OF EXAM: 03/14/2018 COMPARISON: 03/13/2018 HISTORY: Post cardiac surgery TECHNIQUE: Single frontal view of the chest is obtained. FINDINGS: ET and NG tube have been removed. Andrews-Ashley catheter bilateral chest tubes and mediastinal drain are stable. Epicardial lead noted. Elevated left hemidiaphragm with subsegmental consolidation and small effusion. Hyperinflation suggests COPD. Cannot exclude a tiny less than 5% pneumothorax. IMPRESSION: 1. Postsurgical changes with left basilar consolidation and small effusion cannot exclude a tiny less than 5% right apical
[2018-03-14] MEDS: HEPARIN SODIUM,PORCINE 5,000 UNIT/ML 1 ML VIAL SQ SCH ×2 (09:35→17:51)
[2018-03-14] MEDS: ASPIRIN 325 MG TAB PO SCH (09:41)
[2018-03-14] MEDS: CLOPIDOGREL 75 MG TAB PO SCH (09:41)
[2018-03-14] MEDS: METOPROLOL TARTRATE 12.5 MG TAB PO SCH ×2 (09:41→21:33)
[2018-03-14] MEDS: MUPIROCIN 2% OINT 22 GM TUBE NASAL SCH ×2 (09:42→21:33)
[2018-03-14] MEDS: ATORVASTATIN 40 MG TAB PO SCH (09:56)
[2018-03-14] MEDS: ceFAZolin IN SWFI 2 GM/20 ML SYRINGE IVP SCH (10:23)
[2018-03-14 10:40] VITALS: BMI 21.5
[2018-03-14 12:12] LABS: Glucose,Whole Blood 119 mg/dL (75-99)
[2018-03-14] MEDS ORDERED: MAGNESIUM HYDROXIDE 2,400 MG/10 ML CUP PO PRN (12:52)
[2018-03-14] MEDS ORDERED: BISACODYL 10 MG SUPP RECTAL PRN (12:52)
[2018-03-14] MEDS ORDERED: HYDROcodone/APAP 5-325MG 1 EACH TAB PO PRN ×2 (12:52)
[2018-03-14] MEDS: INSULIN ASPART 100 UNIT/ML 1 ML 10 ML VIAL SQ SCH ×3 (13:02→21:32)
[2018-03-14] MEDS: KETOROLAC 30 MG/ML 1 ML VIAL IVP SCH ×2 (13:12→21:36)
[2018-03-14 17:41] LABS: Glucose,Whole Blood 141 mg/dL (75-99)
[2018-03-14 20:58] LABS: Glucose,Whole Blood 115 mg/dL (75-99)
[2018-03-14] MEDS: LACTATED RINGERS 1,000 ML IV SCH (21:22)
[2018-03-14] MEDS: SENNOSIDES-DOCUSATE SODIUM 1 EACH TAB PO SCH (21:34)
[2018-03-15] MEDS: HEPARIN SODIUM,PORCINE 5,000 UNIT/ML 1 ML VIAL SQ SCH ×3 (00:21→16:00)
[2018-03-15 04:33] LABS: Basophils % (A) 1 %; Eosinophils # (A) 0.2 k/uL (0-0.7); Eosinophils % (A) 2 %; HGB 7.4 gm/dL (11.4-16.0); Lymphocytes # (A) 1.2 k/uL (1.0-4.8); Lymphocytes % (A) 17 %; MCH 27.8 pg (25.0-35.0); MCHC 32.2 g/dL (31.0-37.0); MCV 86.3 fL (80.0-100.0); Mean Platelet Volume 10.3; Monocytes # (A) 0.3 k/uL (0-1.0); Monocytes % (A) 5 %; Neutrophils # (A) 5.4 k/uL (1.3-7.7); Neutrophils % (A) 73 %; Platelet Count 141 k/uL (150-450); RBC 2.66 m/uL (3.80-5.40); RDW 14.9 % (11.5-15.5); WBC 7.4 k/uL (3.8-10.6)
[2018-03-15 04:36] LABS: Ionized Calcium 4.7 mg/dL (4.5-5.3)
[2018-03-15] MEDS: KETOROLAC 30 MG/ML 1 ML VIAL IVP SCH ×4 (04:47→18:06)
[2018-03-15 04:55] LABS: ALT 34 U/L (9-52); AST 48 U/L (14-36); Albumin 2.6 g/dL (3.5-5.0); Alkaline Phosphatase 49 U/L (38-126); Anion Gap 3 mmol/L; Blood Urea Nitrogen 16 mg/dL (7-17); Calcium 8.3 mg/dL (8.4-10.2); Carbon Dioxide 25 mmol/L (22-30); Chloride 107 mmol/L (98-107); Glucose 102 mg/dL (74-99); Magnesium 2.1 mg/dL (1.6-2.3); Phosphorus 3.5 mg/dL (2.5-4.5); Potassium 4.6 mmol/L (3.5-5.1); Sodium 135 mmol/L (137-145); Total Bilirubin 0.5 mg/dL (0.2-1.3); Total Protein 4.5 g/dL (6.3-8.2)
[2018-03-15] MEDS: LACTATED RINGERS 1,000 ML IV SCH (06:00)
--- NOTE | 2018-03-15 06:05 | P.PN ---
Subjective Progress Note Date: 03/15/18 Principal diagnosis: Severe triple-vessel coronary artery disease This is a pleasant 78-year-old female patient who sees Dr. Patel in the office as an outpatient who was experiencing recently chest discomfort concerning for angina and underwent a heart catheterization and that revealed severe triple-vessel coronary artery disease. The patient underwent artery artery that is grafting 3 where she received MARSHALL to LAD, SVG to OM, and SVG to RCA. On follow-up with the patient today, 03/15/2018, this is her post operation day #2. She has done well overall. She is not on any drip at this point. She is slightly hypertensive and tachycardic and I would suggest increasing the dose of metoprolol. She continues to be on dual antiplatelet therapy along with statin. The hemoglobin is stable. The kidney function is normal. Objective - Vital Signs Vital signs: Vital Signs Temp 98.6 F 03/15/18 00:00 Pulse 109 H 03/15/18 03:00 Resp 16 03/15/18 03:00 BP 97/58 03/14/18 19:30 Pulse Ox 95 03/15/18 03:00 Intake & Output 03/14/18 03/14/18 03/15/18 06:59 18:59 06:59 Intake Total 9620.344 2565.895 650 Output Total 841 885 575 Balance 499.788 167.895 75 Weight 51.7 kg 51.7 kg Intake: IV 1150 850 550 ACETAMINOPHEN IV (For NPO 50 100 ) 650 mg In Empty Bag 1 bag @ 260 mls/hr IVPB Q6HR NICO Rx#:[id number] Albumin Human 5% 250 ml 500 250 In Empty Bag 1 bag @ 250 mls/hr IVPB Q1HR PRN Rx#: [id number] Lactated Ringers 1,000 ml 650 550 450 @ 50 mls/hr IV .Q20H NICO Rx#:[id number] Intake, IV Titration 190.788 52.895 Amount Insulin Regular 100 unit 6.973 In Sodium Chloride 0.9% 100 ml @ Per Protocol IV .Q0M NICO Rx#:[id number] Milrinone-D5w Pmx 20 mg 81.69 14.320 In Dextrose/Water 1 100ml .bag @ 0.1 MCG/KG/MIN 1. 28 mls/hr IV .Q24H NICO Rx #:[id number] Nitroglycerin-D5w Pmx 50 25.95 mg In Dextrose/Water 1 250ml.bag @ 5 MCG/MIN 1.5 mls/hr IV .Q24H NICO Rx#: [id number] Norepinephrine 4 mg In 102.125 12.625 Sodium Chloride 0.9% 250 ml @ Titrate IV .Q0M NICO Rx#:[id number] Oral 150 100 Output: Chest Tube Drainage 427 290 165 Bilateral Lateral Chest 210 170 100 Mediastinal 217 120 65 Urine 414 595 410 Other: Voiding Method Indwelling Catheter Indwelling Catheter Indwelling Catheter ABP, PAP, CO, CI - Last Documented Arterial Blood Pressure 112/44 Pulmonary Artery Pressure 23/11 Cardiac Output 3.5 Cardiac Index 2.5 - Constitutional General appearance: Present: no acute distress - Respiratory Respiratory: bilateral: CTA - Cardiovascular Rhythm: regular Heart sounds: normal: S1, S2 - Labs CBC & Chem 7: 03/15/18 04:20 03/15/18 04:20 Labs: Abnormal Lab Results - Last 24 Hours (Table) 03/14/18 03/14/18 03/14/18 Range/Units 06:20 06:20 06:20 RBC 2.65 L (3.80-5.40) m/uL Hgb 7.5 L D (11.4-16.0) gm/dL Hct 22.8 L (34.0-46.0) % Plt Count (150-450) k/uL Lymphocytes # 0.7 L (1.0-4.8) k/uL APTT 34.4 H (22.0-30.0) sec Sodium (137-145) mmol/L Chloride 113 H (98-107) mmol/L Glucose 108 H (74-99) mg/dL POC Glucose (mg/dL) (75-99) mg/dL Calcium 8.1 L (8.4-10.2) mg/dL AST 38 H (14-36) U/L Total Protein 4.6 L (6.3-8.2) g/dL Albumin 2.9 L (3.5-5.0) g/dL 03/14/18 03/14/18 03/14/18 Range/Units 06:23 12:08 17:37 RBC (3.80-5.40) m/uL Hgb (11.4-16.0) gm/dL Hct (34.0-46.0) % Plt Count (150-450) k/uL Lymphocytes # (1.0-4.8) k/uL APTT (22.0-30.0) sec Sodium (137-145) mmol/L Chloride (98-107) mmol/L Glucose (74-99) mg/dL POC Glucose (mg/dL) 114 H 119 H 141 H (75-99) mg/dL Calcium (8.4-10.2) mg/dL AST (14-36) U/L Total Protein (6.3-8.2) g/dL Albumin (3.5-5.0) g/dL 03/14/18 03/15/18 03/15/18 Range/Units 20:54 04:20 04:20 RBC 2.66 L (3.80-5.40) m/uL Hgb 7.4 L (11.4-16.0) gm/dL Hct 23.0 L (34.0-46.0) % Plt Count 141 L (150-450) k/uL Lymphocytes # (1.0-4.8) k/uL APTT (22.0-30.0) sec Sodium 135 L (137-145) mmol/L Chloride (98-107) mmol/L Glucose 102 H (74-99) mg/dL POC Glucose (mg/dL) 115 H (75-99) mg/dL Calcium 8.3 L (8.4-10.2) mg/dL AST 48 H (14-36) U/L Total Protein 4.5 L (6.3-8.2) g/dL Albumin 2.6 L (3.5-5.0) g/dL Assessment and Plan Assessment: Assessment #1 severe triple-vessel coronary artery disease #2 hypertension #3 dyslipidemia Plan #1 the patient is status post CABG 3 #2 continue the current medical regimen including dual antiplatelet therapy and statin #3 suggest increasing the dose of metoprolol #4 follow-up with the patient
[2018-03-15 07:32] LABS: Glucose,Whole Blood 88 mg/dL (75-99)
--- NOTE | 2018-03-15 07:44 | XR ---
EXAMINATION TYPE: XR chest 1V portable DATE OF EXAM: 03/15/2018 COMPARISON: Prior chest x-ray 03/14/2018 HISTORY: Postop cardiac surgery TECHNIQUE: Single frontal view of the chest is obtained. FINDINGS: Bilateral chest tubes, right jugular central venous sheath, median sternal drain remain in place. There are cardiac leads. Minimal right apical pneumothorax is present. Patchy bibasilar densi ty is present, there are overlying artifacts. Heart size is stable, patient is post median sternotomy . Interstitium is mildly increased. IMPRESSION: No significant interval change. There may be a component of interstitial edema, basilar atelectasis, difficult to exclude small effusion. Minimal right apical pneumothorax.
[2018-03-15] MEDS: IPRATROPIUM-ALBUTEROL 3 ML NEB INHALATION SCH ×4 (08:07→19:43)
[2018-03-15] MEDS: INSULIN ASPART 100 UNIT/ML 1 ML 10 ML VIAL SQ SCH ×4 (08:24→20:50)
--- NOTE | 2018-03-15 08:26 | P.PN ---
Progress Note - Text The patient is a 70-year-old female who underwent triple bypass surgery 2 days previous. She remains in the intensive care unit here at [facility]. This morning she is sitting up in her recliner chair in her room. States she feels somewhat fatigued. She overall is alert and oriented. She is not on any vasopressors for her blood pressure. She is in no apparent distress. Pulse is 82 with respirations 19 and blood pressure 147/43. Saturation is 96%. Respirations are normal. Heart rate unremarkable. She is alert and oriented without cranial nerve or peripheral nerve deficits noted. Laboratory shows a white count of 7.4 with a hemoglobin 7.4 and a platelet count of 141. Sodium is 135 with potassium 4.6. Blood sugar was 102. Albumin low at 2.6. Calcium 8.3. Chest x-ray Report from this morning shows no significant change. Possibility of some interstitial edema and basilar atelectasis. Minimal right apical pneumothorax noted. Impressions and plans Cardiology note regarded. Patient overall appears to be doing well post bypass surgery. We'll progress as per cardiology and cardiac surgery. Discussed with patient and family and staff at that site this morning.
[2018-03-15] MEDS: METOPROLOL TARTRATE 25 MG TAB PO SCH ×2 (08:54→21:39)
[2018-03-15] MEDS: ATORVASTATIN 40 MG TAB PO SCH (08:55)
[2018-03-15] MEDS: MUPIROCIN 2% OINT 22 GM TUBE NASAL SCH ×2 (08:55→22:30)
[2018-03-15] MEDS: PANTOPRAZOLE 40 MG TABLET PO SCH (08:55)
[2018-03-15] MEDS: ASPIRIN 325 MG TAB PO SCH (08:55)
[2018-03-15] MEDS: CLOPIDOGREL 75 MG TAB PO SCH (08:55)
[2018-03-15] MEDS ORDERED: hydrALAZINE HCL 20 MG/ML 1 ML VIAL ONE (09:27)
[2018-03-15] MEDS ORDERED: hydrALAZINE HCL 20 MG/ML 1 ML VIAL IVP STA (09:29)
--- NOTE | 2018-03-15 09:36 | P.VSCSTY ---
Greater Saphenous Vein Mapping This is bilateral lower extremity greater saphenous vein mapping. Date of service 03/09/2018 Vein quality and ultrasound appearance no intraluminal thrombus. Wall thickening seen in the right groin.. Vein size groin right 2.2 x 2.4 groin left 3.3 x 4.4 High thigh right to 2.9 x 3.8 high thigh left 2.1 x 3.1 Mid thigh right 2.3 x 2.6 mid thigh left 2.2 x 2.4 Above-knee right to 2.1 x 2.9 above-knee left 1.8 x 2.5 Below knee right 1.9 x 2.2 below-knee left 1.7 x 1.7 Mid calf right 1.3 x 1.6 mid calf left 1.6 x 2.2 Ankle right 1.8 x 2.2 ankle left 1.5 x 2.0 Impression probably usable vein above the knee on the left. Possibly usable vein above the knee and at the knee on the right. Significant concerned about the wall thickening on the right groin. Questionable size at the knee and below bilaterally.
--- NOTE | 2018-03-15 10:08 | P.PN ---
Subjective Progress Note Date: 03/15/18 Principal diagnosis: Coronary artery disease, status post coronary artery bypass grafting This 78-year-old white female patient of Dr. Figueroa, who came into the hospital for an elective heart catheterization on 03/09/2018. Patient has been having recurrent episodes of chest pain the last several months, with episodes of vomiting and tachycardia. Patient has no significant previous medical history except for hyperlipidemia, and family history of premature coronary artery disease, with father at age of 51, uncle at the age of 49, and brother with cardiomyopathy and placement of AICD at the age of 53. Patient went to see her primary care provider, she was referred to cardiology, and underwent evaluation and outpatient stress test on Tuesday03/07/2018, which was said to be abnormal with EKG changes, but no chest pain. Patient was then scheduled for cardiac catheterization on 03/09/2018 showed distal left main stenosis of 60%, with calcification, a 90% ostial LAD, 95% proximal RCA, and a significant stenosis involving the diagonal branch. Normal LV systolic function was noted. Echocardiogram showed an EF greater than 55%, mild aortic valve sclerosis no evidence of aortic regurgitation, mild tricuspid regurgitation, no evidence of pulmonary hypertension. Chest x-ray showed no acute process, showed hyperinflation suggesting COPD. She was evaluated by cardiothoracic surgery and the surgical intervention was recommended, patient is scheduled for coronary artery bypass grafting on Tuesday03/13/2018. Lab work showed white count of 5.9, hemoglobin of 9.7, electro [place] profile were within normal limits, relation profile was normal, LFTs were within normal limits, hemoglobin A1c was 5.7, urinalysis showed trace blood, no evidence of infection. Vision is a lifetime nonsmoker, she denies any history of chronic lung disease. Preop PFT showed an FEV1 2.36 L or 136% of predicted. Patient is ambulating without any difficulty, denies any chest pain or shortness of breath with activity, she states she has been having her chest pain episodes mostly at night. At least, comfortable, vital signs are stable, room air pulse ox is 98%. On 08/03/2018 patient seen in follow-up in the intensive care unit, she is status post three-vessel bypass grafting with MARSHALL to LAD, SVG to the PDA and obtuse marginal. Is postop day 0, patient is seen in the intensive care unit in the postoperative period, she is sedated, intubated on mechanical ventilator , postop blood gases showed pO2 of 400, pCO2 49, pH of 7.32, this was done on SIMV mode of ventilation, with a rate of 12, tidal volume of 350, FiO2 was 100% and PEEP of 5. Patient was then switched to assist control mode of ventilation , with a rate of 16, tidal vital 350, FiO2 of 40% and PEEP of 5. Maintenance IV fluid is lactated Ringer's at rate of 50, the Levophed is at 2 mics per minute, nitroglycerin drip is at 5 mics per kilo per minute, Primacor is currently at 0.375 mics per kilo per minute. Patient is paced via epicardial wires, 80 BPM, at a rate of DDD. Cardiac output and cardiac index were 3.1 and 2.2 respectively. Underlying rhythm is sinus rhythm with a rate of 60 BPM. Urine output is pale and dilated, patient is nonoliguric, patient has left and right pleural chest tubes connected with A Y connection, and one mediastinal chest tube, there has been 121 mL of sanguinous output from the bilateral chest tubes, and 45 ML of 6 segments output from the mediastinal chest tube. Was a blood work has been reviewed, white blood cell count was 9.8, hemoglobin is 10.5 , patient did receive 2 units of packed red blood cells in the operating room, electrolytes and renal profile were unremarkable. Chest x-ray showed a ET, NG tube in satisfactory positions. Background of COPD, and postsurgical changes. No definite acute process On March 14, 2018 patient seen in follow-up in the intensive care unit, she is currently sitting up in the recliner, on 2 L per nasal cannula, her pulse ox is 100%, afebrile, blood pressures 107 and 58, with the PA pressures of 15/8, CVP of 5, cardiac output is 3.7, with cardiac index of 2.7. Maintenance IV fluids are lactated Ringer's at 50 ML per hour, Primacor at 0.2 mcg/kg/m, insulin drip is at 1 unit per hour. Patient is status post three-vessel coronary artery bypass grafting, postop day #1. Doing well, today's chest x- ray has been reviewed with Dr. Licona, and shows chronically elevated left hemidiaphragm, with minimal left basilar atelectasis, bilateral chest tubes, mediastinal chest tubes, PA catheter is in good location. Patient was extubated 6 hours and 10 minutes after OR exit time. She is pulling 1750 on the incentive spirometry today. Today's labs have been reviewed, white blood cell count is 6.8, hemoglobin is 7.5, sodium is 141, potassium is 4.8, chloride is 113, CO2 is 23, BUN is 12 and creatinine is 0.55. Patient has been started on clear liquid diet, tolerating it well. Chest tubes are in place, draining thin serosanguineous output, and there has been 351 mL out of the bilateral chest tubes, and 292 mL out of the mediastinal chest tubes. A shunt is producing urine, and the order of 20-50 ML per hour. On 03/15/2018 patient seen again in follow-up in the intensive care unit, she sits up in the recliner, in no acute distress, on room air, only IV is lactated Ringer's at a rate of 50. This is postop day 2, status post three-vessel coronary artery bypass grafting surgery. Lung sounds are positive for some coarse rhonchi and rales at the left lower base, today's chest x-ray was reviewed with Dr. Licona showed a component of basilar atelectasis, left greater than the right, minimal right apical pneumothorax, and a component of interstitial edema. Patient regarding her incentive spirometer, able to achieve 750 ML on the today. She did get up and ambulate yesterday, tolerated activity well. PA catheter has been discontinued. Patient still has the bilateral chest tubes the 350 mL of thin serosanguineous output the last 24 hours, and mediastinal chest tube are 205 ML of serosanguineous output. CT surgery is planning on removing the mediastinal chest tube today. Patient is in sinus rhythm. Today's labs have been reviewed, showed with blood cell count of 7.4, hemoglobin 7.4, sodium of 135, the rest of the left with renal profile were within normal limits. Patient is tolerating clear liquid diet, patient is nonoliguric. Objective - Vital Signs Vital signs: Vital Signs Temp 98.7 F 03/15/18 04:00 Pulse 82 03/15/18 08:21 Resp 19 03/15/18 07:30 BP 127/66 03/15/18 06:30 Pulse Ox 96 03/15/18 07:30 Intake & Output 03/14/18 03/15/18 03/15/18 18:59 06:59 18:59 Intake Total 1052.895 800 Output Total 885 785 Balance 167.895 15 Weight 51.7 kg 42 kg Intake: IV 850 700 ACETAMINOPHEN IV (For NPO 50 100 ) 650 mg In Empty Bag 1 bag @ 260 mls/hr IVPB Q6HR NICO Rx#:[id number] Albumin Human 5% 250 ml 250 In Empty Bag 1 bag @ 250 mls/hr IVPB Q1HR PRN Rx#: [id number] Lactated Ringers 1,000 ml 550 600 @ 50 mls/hr IV .Q20H NICO Rx#:[id number] Intake, IV Titration 52.895 Amount Milrinone-D5w Pmx 20 mg 14.320 In Dextrose/Water 1 100ml .bag @ 0.1 MCG/KG/MIN 1. 28 mls/hr IV .Q24H NICO Rx #:[id number] Nitroglycerin-D5w Pmx 50 25.95 mg In Dextrose/Water 1 250ml.bag @ 5 MCG/MIN 1.5 mls/hr IV .Q24H NICO Rx#: [id number] Norepinephrine 4 mg In 12.625 Sodium Chloride 0.9% 250 ml @ Titrate IV .Q0M NICO Rx#:[id number] Oral 150 100 Output: Chest Tube Drainage 290 265 Bilateral Lateral Chest 170 180 Mediastinal 120 85 Urine 595 520 Other: Voiding Method Indwelling Catheter Indwelling Catheter ABP, PAP, CO, CI - Last Documented Arterial Blood Pressure 147/43 Pulmonary Artery Pressure 23/11 Cardiac Output 3.5 Cardiac Index 2.5 - Exam GENERAL EXAM: 78-year-old white female comfortable in no apparent distress. On room air with a pulse ox of 100%. HEAD: Normocephalic/atraumatic. EYES: Normal reaction of pupils, equal size. Conjunctiva pink, sclera white. NOSE: Clear with pink turbinates. THROAT: No erythema or exudates. NECK: No masses, no JVD, no thyroid enlargement, no adenopathy. CHEST: No chest wall deformity. Symmetrical expansion. Midsternal incision is clean dry and intact, two bilateral pleural chest tubes connected to St. Pleur- evac, with 350 mL of thin serosanguineous output, and one mediastinal chest tube with 250 mL of thin serosanguineous output, no air leak. Epicardial wires to external pacemaker, with a backup rate, patient is sinus rhythm on the monitor, 80 BPM. LUNGS: Equal air entry with no crackles, wheeze, rhonchi or dullness. CVS: Regular rate and rhythm, normal S1 and S2, no gallops, no murmurs, no rubs ABDOMEN: Soft, nontender. No hepatosplenomegaly, normal bowel sounds, no guarding or rigidity. EXTREMITIES: No clubbing, no edema, no cyanosis, 2+ pulses and upper and lower extremities. MUSCULOSKELETAL: Muscle strength and tone normal. SPINE: No scoliosis or deformity SKIN: No rashes CENTRAL NERVOUS SYSTEM: Awake and alert, oriented 3. No focal deficits, tone is normal in all 4 extremities. - Labs CBC & Chem 7: 03/15/18 04:20 03/15/18 04:20 Labs: Abnormal Lab Results - Last 24 Hours (Table) 03/14/18 03/14/18 03/14/18 Range/Units 12:08 17:37 20:54 RBC (3.80-5.40) m/uL Hgb (11.4-16.0) gm/dL Hct (34.0-46.0) % Plt Count (150-450) k/uL Sodium (137-145) mmol/L Glucose (74-99) mg/dL POC Glucose (mg/dL) 119 H 141 H 115 H (75-99) mg/dL Calcium (8.4-10.2) mg/dL AST (14-36) U/L Total Protein (6.3-8.2) g/dL Albumin (3.5-5.0) g/dL 03/15/18 03/15/18 Range/Units 04:20 04:20 RBC 2.66 L (3.80-5.40) m/uL Hgb 7.4 L (11.4-16.0) gm/dL Hct 23.0 L (34.0-46.0) % Plt Count 141 L (150-450) k/uL Sodium 135 L (137-145) mmol/L Glucose 102 H (74-99) mg/dL POC Glucose (mg/dL) (75-99) mg/dL Calcium 8.3 L (8.4-10.2) mg/dL AST 48 H (14-36) U/L Total Protein 4.5 L (6.3-8.2) g/dL Albumin 2.6 L (3.5-5.0) g/dL Assessment and Plan Plan: Assessment: #1. Symptomatic multi-vessel coronary artery disease, with the left main stenosis of 60%, ostial LAD stenosis 80-90% with a diagonal branch showing 80% stenosis, and RCA with 95% proximal stenosis. Status post three-vessel coronary bypass grafting, with MARSHALL to LAD, SVG to PDA and obtuse marginal, postop day 2 #2. Postoperative blood loss anemia, an expected outcome of cardiac bypass surgery, status post transfusion with 2 units of packed red blood cells #3. Routine postoperative ventilator management, she was successfully extubated 6 hours and 10 minutes after OR exit time,on 2 L per nasal cannula tolerating extubation quite well. #4. Hyperlipidemia #5. Family history of premature coronary artery disease #6. Lifelong nonsmoker Plan: Encourage deep breathing and coughing, ambulation, incentive spirometry use, today's chest x-ray has been reviewed with Dr. Licona, and showed left greater than the right basilar atelectasis, small pleural effusion. Labs have been reviewed, vital signs are stable. She is on room air. I performed a history & physical examination of the patient and discussed their management with my nurse practitioner, Maureen Strong. I reviewed the nurse practitioner's note and agree with the documented findings and plan of care. Lung sounds are positive for clear breath sounds. The findings and the impression was discussed with the patient. I attest to the documentation by the nurse practitioner. Time with Patient: Less than 30
[2018-03-15] MEDS ORDERED: ALPRAZolam 0.25 MG TAB PO PRN (10:45)
--- NOTE | 2018-03-15 11:13 | P.PN ---
Subjective Progress Note Date: 03/15/18 Principal diagnosis: Multivessel coronary artery disease with left main disease. Previous medical history of hyperlipidemia and family history of premature coronary artery disease. POD #2 urgent coronary artery bypass grafting 3 vessels, left internal mammary artery to the left anterior descending artery, reverse saphenous vein graft to the obtuse marginal artery, reverse saphenous vein graft to posterior descending artery. Endoscopic harvesting of bilateral greater saphenous veins. Epi-aortic ultrasound. Intraoperative transesophageal echocardiogram. Postoperative acute blood loss, expected outcome secondary to cardiopulmonary bypass pump and hemodilution. The patient's currently sitting up in the recliner in no acute distress. She does complain of surgical pain mostly controlled with current pain medication regimen, denies shortness of breath. She is hemodynamically stable. Remains on no pressors or inotropes. She is complaining of restless legs. She has been up to ambulate in the hallway. Objective - Vital Signs Vital signs: Vital Signs Temp 98.7 F 03/15/18 04:00 Pulse 82 03/15/18 08:21 Resp 19 03/15/18 07:30 BP 127/66 03/15/18 06:30 Pulse Ox 96 03/15/18 07:30 Intake & Output 03/14/18 03/15/18 03/15/18 18:59 06:59 18:59 Intake Total 1052.895 800 Output Total 885 785 Balance 167.895 15 Weight 51.7 kg 42 kg Intake: IV 850 700 ACETAMINOPHEN IV (For NPO 50 100 ) 650 mg In Empty Bag 1 bag @ 260 mls/hr IVPB Q6HR [facility] Rx#:[id number] Albumin Human 5% 250 ml 250 In Empty Bag 1 bag @ 250 mls/hr IVPB Q1HR PRN Rx#: [id number] Lactated Ringers 1,000 ml 550 600 @ 50 mls/hr IV .Q20H [facility] Rx#:[id number] Intake, IV Titration 52.895 Amount Milrinone-D5w Pmx 20 mg 14.320 In Dextrose/Water 1 100ml .bag @ 0.1 MCG/KG/MIN 1. 28 mls/hr IV .Q24H [facility] Rx #:[id number] Nitroglycerin-D5w Pmx 50 25.95 mg In Dextrose/Water 1 250ml.bag @ 5 MCG/MIN 1.5 mls/hr IV .Q24H [facility] Rx#: [id number] Norepinephrine 4 mg In 12.625 Sodium Chloride 0.9% 250 ml @ Titrate IV .Q0M [facility] Rx#:[id number] Oral 150 100 Output: Chest Tube Drainage 290 265 Bilateral Lateral Chest 170 180 Mediastinal 120 85 Urine 595 520 Other: Voiding Method Indwelling Catheter Indwelling Catheter ABP, PAP, CO, CI - Last Documented Arterial Blood Pressure 147/43 Pulmonary Artery Pressure 23/11 Cardiac Output 3.5 Cardiac Index 2.5 - Constitutional General appearance: Present: cooperative, no acute distress - Respiratory Details: Lungs sounds diminished bilaterally. Respirations even, nonlabored. Currently on room air with oxygen saturation 97%. Able to achieve 500-750 mL on her incentive spirometry. Strong cough. Mediastinal chest tube to continuous wall suction, 50 mL serosanguineous drainage overnight, 250 mL in the last 24 hours. Right/left pleural chest tubes to continuous wall suction, 130 mL serosanguineous drainage overnight, 300 mL since the last 24 hours. No air leaks present. - Cardiovascular Details: S1/S2 present. Regular rate and rhythm, normal sinus rhythm on telemetry. A/V epicardial pacemaker wires present, connected to generator, generator turned off. Sternum stable. Palpable peripheral pulses bilaterally. No edema present. No calf pain or tenderness noted. Right internal jugular Cordis, right radial arterial line present. Heart hugger in place with patient demonstrating appropriate use. Antiembolism stockings, SCDs present. - Gastrointestinal Gastrointestinal Comment(s): Abdomen soft, nontender, nondistended. Hypoactive bowel sounds present 4 quadrants. Tolerating clear liquids. Positive flatus, negative bowel movement. - Genitourinary Genitourinary Comment(s): [place] present draining clear, yellow urine. Output 35-80 mL/h overnight, 415 mL in the last 8 hours. - Integumentary Integumentary Comment(s): Skin is warm and dry with evidence of good perfusion. Anterior chest incision well approximated and covered with dry intact dressing. Bilateral lower extremity EVH sites well approximated. - Neurologic Neurologic: Present: CNII-XII intact - Musculoskeletal Musculoskeletal: Present: gait normal, strength equal bilaterally - Psychiatric Psychiatric: Present: A&O x's 3, appropriate affect, intact judgment & insight - Allied health notes Allied health notes reviewed: nursing - Labs CBC & Chem 7: 03/15/18 04:20 03/15/18 04:20 Labs: Abnormal Lab Results - Last 24 Hours (Table) 03/14/18 03/14/18 03/14/18 Range/Units 12:08 17:37 20:54 RBC (3.80-5.40) m/uL Hgb (11.4-16.0) gm/dL Hct (34.0-46.0) % Plt Count (150-450) k/uL Sodium (137-145) mmol/L Glucose (74-99) mg/dL POC Glucose (mg/dL) 119 H 141 H 115 H (75-99) mg/dL Calcium (8.4-10.2) mg/dL AST (14-36) U/L Total Protein (6.3-8.2) g/dL Albumin (3.5-5.0) g/dL 03/15/18 03/15/18 Range/Units 04:20 04:20 RBC 2.66 L (3.80-5.40) m/uL Hgb 7.4 L (11.4-16.0) gm/dL Hct 23.0 L (34.0-46.0) % Plt Count 141 L (150-450) k/uL Sodium 135 L (137-145) mmol/L Glucose 102 H (74-99) mg/dL POC Glucose (mg/dL) (75-99) mg/dL Calcium 8.3 L (8.4-10.2) mg/dL AST 48 H (14-36) U/L Total Protein 4.5 L (6.3-8.2) g/dL Albumin 2.6 L (3.5-5.0) g/dL - Imaging and Cardiology Chest x-ray: report reviewed, image reviewed Assessment and Plan (1) Hyperlipidemia Current Visit: Yes Status: Chronic Code(s): E78.5 - HYPERLIPIDEMIA, UNSPECIFIED SNOMED Code(s): 65495550 (2) Family history of premature coronary artery disease Current Visit: Yes Status: Chronic Code(s): Z82.49 - FAMILY HX OF I[place]HE[place] HEART DIS AND OTH DIS OF THE CIRC SYS SNOMED Code(s): 651042779 (3) Coronary artery disease Current Visit: Yes Status: Acute Code(s): I25.10 - ATHSCL HEART DISEASE OF [place] CORONARY ARTERY W/O ANG PCTRS SNOMED Code(s): 44966089 (4) Left main coronary artery disease Current Visit: Yes Status: Acute Code(s): I25.10 - ATHSCL HEART DISEASE OF [place] CORONARY ARTERY W/O [employer] [facility] [employer] PCTRS SNOMED Code(s): 964900014 Plan: 1. Continue aspirin, statin, Plavix, beta lobito therapy. Will increase beta lobito therapy as tolerated. 2. Encourage incentive spirometry is 10 times every hour while awake. 3. Bronchodilators per pulmonology. 4. Increase activity, ambulate as tolerated. PT/OT/cardiac rehab following 5. Will discontinue mediastinal chest tube. Will split right/left pleural chest tubes. 6. Pain controlled current medication regimen. 7. Will monitor daily labs and x-rays. Electrolyte replacement protocol. No transfusion at this time. 8. Insulin management per primary care service. 9. GI prophylaxis with Protonix, DVT prophylaxis with subcu heparin, SCDs. 10. More recommendations to follow. Time with Patient: Greater than 30
[2018-03-15] MEDS: ONDANSETRON 4 MG/2 ML VIAL IVP PRN (12:07)
[2018-03-15] MEDS ORDERED: ACETAMINOPHEN TAB 325 MG TAB PO PRN ×2 (12:18)
[2018-03-15 12:24] LABS: Glucose,Whole Blood 129 mg/dL (75-99)
[2018-03-15 17:31] LABS: Glucose,Whole Blood 102 mg/dL (75-99)
[2018-03-15] MEDS: SENNOSIDES-DOCUSATE SODIUM 1 EACH TAB PO SCH (20:53)
[2018-03-15 21:06] LABS: Glucose,Whole Blood 95 mg/dL (75-99)
[2018-03-16] MEDS: HEPARIN SODIUM,PORCINE 5,000 UNIT/ML 1 ML VIAL SQ SCH ×4 (00:55→22:13)
[2018-03-16] MEDS: KETOROLAC 30 MG/ML 1 ML VIAL IVP SCH ×5 (00:56→22:13)
[2018-03-16 07:02] LABS: Glucose,Whole Blood 81 mg/dL (75-99)
[2018-03-16 07:04] LABS: Basophils # (A) 0.1 k/uL (0-0.2); Basophils % (A) 1 %; Eosinophils # (A) 0.4 k/uL (0-0.7); Eosinophils % (A) 5 %; HGB 8.7 gm/dL (11.4-16.0); Hypochromasia Slight; Lymphocytes # (A) 1.3 k/uL (1.0-4.8); Lymphocytes % (A) 18 %; MCH 28.6 pg (25.0-35.0); MCHC 32.1 g/dL (31.0-37.0); Mean Platelet Volume 7.8; Monocytes # (A) 0.4 k/uL (0-1.0); Monocytes % (A) 5 %; Neutrophils # (A) 4.7 k/uL (1.3-7.7); Neutrophils % (A) 67 %; Platelet Count 195 k/uL (150-450); RBC 3.04 m/uL (3.80-5.40); RDW 14.7 % (11.5-15.5)
--- NOTE | 2018-03-16 07:10 | P.PN ---
Subjective Progress Note Date: 03/16/18 Principal diagnosis: Severe triple-vessel coronary artery disease This is a pleasant 78-year-old female patient who sees Dr. Patel in the office as an outpatient who was experiencing recently chest discomfort concerning for angina and underwent a heart catheterization and that revealed severe triple-vessel coronary artery disease. The patient underwent artery artery that is grafting 3 where she received MARSHALL to LAD, SVG to OM, and SVG to RCA. On follow-up with the patient today, March 162018, the patient has been stable. Hemoglobin is above 7. The GFR is about 60. Patient has been making good urine. The chest x-ray showed small left pleural effusion. She continues to be on dual antiplatelet therapy with aspirin and Plavix as well as she is on statin and she is on metoprolol. Objective - Vital Signs Vital signs: Vital Signs Temp 98.1 F 03/16/18 04:00 Pulse 75 03/16/18 06:30 Resp 18 03/16/18 06:30 BP 114/65 03/16/18 06:30 Pulse Ox 94 L 03/16/18 06:30 Intake & Output 03/15/18 03/16/18 03/16/18 18:59 06:59 18:59 Intake Total 750 Output Total 593 600 Balance 157 -600 Weight 42.2 kg Intake: IV 290 Lactated Ringers 1,000 ml 290 @ 20 mls/hr IV .Q24H [facility] Rx#:[id number] Oral 460 Output: Chest Tube Drainage 135 Bilateral Lateral Chest 70 Left Lateral Chest 15 Mediastinal 20 Right Lateral Chest 30 Urine 458 600 Other: Voiding Method Indwelling Catheter Indwelling Catheter ABP, PAP, CO, CI - Last Documented Arterial Blood Pressure 120/48 Pulmonary Artery Pressure 23/11 Cardiac Output 3.5 Cardiac Index 2.5 - Constitutional General appearance: Present: no acute distress - Respiratory Respiratory: bilateral: CTA - Cardiovascular Rhythm: regular Heart sounds: normal: S1, S2 - Labs CBC & Chem 7: 03/15/18 04:20 03/15/18 04:20 Labs: Abnormal Lab Results - Last 24 Hours (Table) 03/15/18 03/15/18 Range/Units 12:21 17:24 POC Glucose (mg/dL) 129 H 102 H (75-99) mg/dL Assessment and Plan Assessment: Assessment #1 severe triple-vessel coronary artery disease #2 hypertension #3 dyslipidemia Plan #1 the patient is status post CABG 3 #2 continue the current medical regimen including dual antiplatelet therapy and statin #3 continue daily chest x-ray and continue daily CBC and BMP #4 follow-up with the patient
[2018-03-16 07:31] LABS: ALT 41 U/L (9-52); AST 51 U/L (14-36); Alkaline Phosphatase 81 U/L (38-126); Anion Gap 3 mmol/L; Blood Urea Nitrogen 18 mg/dL (7-17); Calcium 8.8 mg/dL (8.4-10.2); Carbon Dioxide 28 mmol/L (22-30); Chloride 106 mmol/L (98-107); Glucose 96 mg/dL (74-99); Magnesium 2.4 mg/dL (1.6-2.3); Phosphorus 3.1 mg/dL (2.5-4.5); Potassium 4.9 mmol/L (3.5-5.1); Sodium 137 mmol/L (137-145); Total Bilirubin 0.7 mg/dL (0.2-1.3)
[2018-03-16] MEDS: IPRATROPIUM-ALBUTEROL 3 ML NEB INHALATION SCH ×4 (07:48→19:58)
--- NOTE | 2018-03-16 07:57 | P.PN ---
Progress Note - Text The patient is a 78-year-old female who is post triple bypass surgery 3 days previous. Presently she is still in the intensive care unit. This morning she is up to the bathroom. Apparently when she had her x-ray she coughed and did develop a bit of drainage from her drainage tube. Otherwise she does not appear to be in any acute distress. Vital signs show pulse of 80 with respirations 18 and blood pressure 114/65. She is 94% saturated. Last temperature is 98.1. Lungs are somewhat diminished at bases but otherwise clear without wheezing. Heart tones are for the most part regular. No unusual edema. Cranial nerves intact and no focal weakness noted. Laboratory White count is 7 with a hemoglobin 8.7 and a platelet count of 195. Electrolytes were normal with a sodium 137 and potassium 4.9. BUN was 18 with a creatinine 0.73 given her GFR of 79. Blood sugar of 96 this morning albumin 3.0. Impressions and plans Patient is doing well post triple bypass surgery. Cardiology notes were regarded. Requip has helped with patient's restless leg syndrome. Continue to advance as per surgery and cardiology.
[2018-03-16] MEDS: INSULIN ASPART 100 UNIT/ML 1 ML 10 ML VIAL SQ SCH ×4 (08:07→21:26)
--- NOTE | 2018-03-16 08:45 | P.PN ---
Subjective Progress Note Date: 03/16/18 Principal diagnosis: Coronary artery disease, status post coronary artery bypass grafting This 78-year-old white female patient of Dr. Figueroa, who came into the hospital for an elective heart catheterization on 03/09/2018. Patient has been having recurrent episodes of chest pain the last several months, with episodes of vomiting and tachycardia. Patient has no significant previous medical history except for hyperlipidemia, and family history of premature coronary artery disease, with father at age of 51, uncle at the age of 49, and brother with cardiomyopathy and placement of AICD at the age of 53. Patient went to see her primary care provider, she was referred to cardiology, and underwent evaluation and outpatient stress test on Tuesday03/07/2018, which was said to be abnormal with EKG changes, but no chest pain. Patient was then scheduled for cardiac catheterization on 03/09/2018 showed distal left main stenosis of 60%, with calcification, a 90% ostial LAD, 95% proximal RCA, and a significant stenosis involving the diagonal branch. Normal LV systolic function was noted. Echocardiogram showed an EF greater than 55%, mild aortic valve sclerosis no evidence of aortic regurgitation, mild tricuspid regurgitation, no evidence of pulmonary hypertension. Chest x-ray showed no acute process, showed hyperinflation suggesting COPD. She was evaluated by cardiothoracic surgery and the surgical intervention was recommended, patient is scheduled for coronary artery bypass grafting on Tuesday03/13/2018. Lab work showed white count of 5.9, hemoglobin of 9.7, electro [place] profile were within normal limits, relation profile was normal, LFTs were within normal limits, hemoglobin A1c was 5.7, urinalysis showed trace blood, no evidence of infection. Vision is a lifetime nonsmoker, she denies any history of chronic lung disease. Preop PFT showed an FEV1 2.36 L or 136% of predicted. Patient is ambulating without any difficulty, denies any chest pain or shortness of breath with activity, she states she has been having her chest pain episodes mostly at night. At least, comfortable, vital signs are stable, room air pulse ox is 98%. On 08/03/2018 patient seen in follow-up in the intensive care unit, she is status post three-vessel bypass grafting with MARSHALL to LAD, SVG to the PDA and obtuse marginal. Is postop day 0, patient is seen in the intensive care unit in the postoperative period, she is sedated, intubated on mechanical ventilator , postop blood gases showed pO2 of 400, pCO2 49, pH of 7.32, this was done on SIMV mode of ventilation, with a rate of 12, tidal volume of 350, FiO2 was 100% and PEEP of 5. Patient was then switched to assist control mode of ventilation , with a rate of 16, tidal vital 350, FiO2 of 40% and PEEP of 5. Maintenance IV fluid is lactated Ringer's at rate of 50, the Levophed is at 2 mics per minute, nitroglycerin drip is at 5 mics per kilo per minute, Primacor is currently at 0.375 mics per kilo per minute. Patient is paced via epicardial wires, 80 BPM, at a rate of DDD. Cardiac output and cardiac index were 3.1 and 2.2 respectively. Underlying rhythm is sinus rhythm with a rate of 60 BPM. Urine output is pale and dilated, patient is nonoliguric, patient has left and right pleural chest tubes connected with A Y connection, and one mediastinal chest tube, there has been 121 mL of sanguinous output from the bilateral chest tubes, and 45 ML of 6 segments output from the mediastinal chest tube. Was a blood work has been reviewed, white blood cell count was 9.8, hemoglobin is 10.5 , patient did receive 2 units of packed red blood cells in the operating room, electrolytes and renal profile were unremarkable. Chest x-ray showed a ET, NG tube in satisfactory positions. Background of COPD, and postsurgical changes. No definite acute process On March 14, 2018 patient seen in follow-up in the intensive care unit, she is currently sitting up in the recliner, on 2 L per nasal cannula, her pulse ox is 100%, afebrile, blood pressures 107 and 58, with the PA pressures of 15/8, CVP of 5, cardiac output is 3.7, with cardiac index of 2.7. Maintenance IV fluids are lactated Ringer's at 50 ML per hour, Primacor at 0.2 mcg/kg/m, insulin drip is at 1 unit per hour. Patient is status post three-vessel coronary artery bypass grafting, postop day #1. Doing well, today's chest x- ray has been reviewed with Dr. Licona, and shows chronically elevated left hemidiaphragm, with minimal left basilar atelectasis, bilateral chest tubes, mediastinal chest tubes, PA catheter is in good location. Patient was extubated 6 hours and 10 minutes after OR exit time. She is pulling 1750 on the incentive spirometry today. Today's labs have been reviewed, white blood cell count is 6.8, hemoglobin is 7.5, sodium is 141, potassium is 4.8, chloride is 113, CO2 is 23, BUN is 12 and creatinine is 0.55. Patient has been started on clear liquid diet, tolerating it well. Chest tubes are in place, draining thin serosanguineous output, and there has been 351 mL out of the bilateral chest tubes, and 292 mL out of the mediastinal chest tubes. A shunt is producing urine, and the order of 20-50 ML per hour. On 03/15/2018 patient seen again in follow-up in the intensive care unit, she sits up in the recliner, in no acute distress, on room air, only IV is lactated Ringer's at a rate of 50. This is postop day 2, status post three-vessel coronary artery bypass grafting surgery. Lung sounds are positive for some coarse rhonchi and rales at the left lower base, today's chest x-ray was reviewed with Dr. Licona showed a component of basilar atelectasis, left greater than the right, minimal right apical pneumothorax, and a component of interstitial edema. Patient regarding her incentive spirometer, able to achieve 750 ML on the today. She did get up and ambulate yesterday, tolerated activity well. PA catheter has been discontinued. Patient still has the bilateral chest tubes the 350 mL of thin serosanguineous output the last 24 hours, and mediastinal chest tube are 205 ML of serosanguineous output. CT surgery is planning on removing the mediastinal chest tube today. Patient is in sinus rhythm. Today's labs have been reviewed, showed with blood cell count of 7.4, hemoglobin 7.4, sodium of 135, the rest of the left with renal profile were within normal limits. Patient is tolerating clear liquid diet, patient is nonoliguric. On 03/16/2018 patient seen in follow-up in the intensive care unit, she is awake and alert, sitting up in the recliner, on no oxygen, no IVs. Lung sounds are clear, incentive spirometry effort today is 750 ML. Patient is awaiting a bed on selective care unit, possibly discharge home today. All chest tubes have been discontinued, she is tolerating full liquid diet. No acute events overnight. Sinus rhythm on the monitor. Today's chest x-ray has been reviewed with Dr. Dr. Licona, showed a component of basilar atelectasis, left greater than the right. Labs have been reviewed, white blood cell count is 7.0, hemoglobin is 8.7, sodium is 137, potassium is 4.9, chloride is 106, B1 is 18 and creatinine 0.74. Midsternal incision is clean dry and intact, stable, right leg interrupted incision clean dry and intact, approximated with Dermabond Objective - Vital Signs Vital signs: Vital Signs Temp 98.1 F 03/16/18 04:00 Pulse 80 03/16/18 07:58 Resp 18 03/16/18 06:30 BP 114/65 03/16/18 06:30 Pulse Ox 94 L 03/16/18 06:30 Intake & Output 03/15/18 03/16/18 03/16/18 18:59 06:59 18:59 Intake Total 750 Output Total 593 600 Balance 157 -600 Weight 42.2 kg Intake: IV 290 Lactated Ringers 1,000 ml 290 @ 20 mls/hr IV .Q24H [facility] Rx#:[id number] Oral 460 Output: Chest Tube Drainage 135 Bilateral Lateral Chest 70 Left Lateral Chest 15 Mediastinal 20 Right Lateral Chest 30 Urine 458 600 Other: Voiding Method Indwelling Catheter Indwelling Catheter ABP, PAP, CO, CI - Last Documented Arterial Blood Pressure 120/48 Pulmonary Artery Pressure 23/11 Cardiac Output 3.5 Cardiac Index 2.5 - Exam GENERAL EXAM: 78-year-old white female comfortable in no apparent distress. On room air with a pulse ox of 100%. HEAD: Normocephalic/atraumatic. EYES: Normal reaction of pupils, equal size. Conjunctiva pink, sclera white. NOSE: Clear with pink turbinates. THROAT: No erythema or exudates. NECK: No masses, no JVD, no thyroid enlargement, no adenopathy. CHEST: No chest wall deformity. Symmetrical expansion. Midsternal incision is clean dry and intact, interval removal of the mediastinal and pleural chest tubes LUNGS: Equal air entry with no crackles, wheeze, rhonchi or dullness. CVS: Regular rate and rhythm, normal S1 and S2, no gallops, no murmurs, no rubs ABDOMEN: Soft, nontender. No hepatosplenomegaly, normal bowel sounds, no guarding or rigidity. EXTREMITIES: No clubbing, no edema, no cyanosis, 2+ pulses and upper and lower extremities. MUSCULOSKELETAL: Muscle strength and tone normal. SPINE: No scoliosis or deformity SKIN: No rashes CENTRAL NERVOUS SYSTEM: Awake and alert, oriented 3. No focal deficits, tone is normal in all 4 extremities. - Labs CBC & Chem 7: 03/16/18 06:45 03/16/18 06:45 Labs: Abnormal Lab Results - Last 24 Hours (Table) 03/15/18 03/15/18 03/16/18 Range/Units 12:21 17:24 06:45 RBC (3.80-5.40) m/uL Hgb (11.4-16.0) gm/dL Hct (34.0-46.0) % BUN 18 H (7-17) mg/dL POC Glucose (mg/dL) 129 H 102 H (75-99) mg/dL Magnesium 2.4 H (1.6-2.3) mg/dL AST 51 H (14-36) U/L Total Protein 5.0 L (6.3-8.2) g/dL Albumin 3.0 L (3.5-5.0) g/dL 03/16/18 Range/Units 06:45 RBC 3.04 L (3.80-5.40) m/uL Hgb 8.7 L (11.4-16.0) gm/dL Hct 27.0 L (34.0-46.0) % BUN (7-17) mg/dL POC Glucose (mg/dL) (75-99) mg/dL Magnesium (1.6-2.3) mg/dL AST (14-36) U/L Total Protein (6.3-8.2) g/dL Albumin (3.5-5.0) g/dL Assessment and Plan Plan: Assessment: #1. Symptomatic multi-vessel coronary artery disease, with the left main stenosis of 60%, ostial LAD stenosis 80-90% with a diagonal branch showing 80% stenosis, and RCA with 95% proximal stenosis. Status post three-vessel coronary bypass grafting, with MARSHALL to LAD, SVG to PDA and obtuse marginal, postop day 3 #2. Postoperative blood loss anemia, an expected outcome of cardiac bypass surgery, status post transfusion with 2 units of packed red blood cells #3. Routine postoperative ventilator management, she was successfully extubated 6 hours and 10 minutes after OR exit time,on 2 L per nasal cannula tolerating extubation quite well. #4. Hyperlipidemia #5. Family history of premature coronary artery disease #6. Lifelong nonsmoker Plan: Patient is doing well, on room air, chest x-ray shows stable findings of left basilar atelectasis, tolerating ambulation, work on her incentive spirometer. Possibly for discharge home today. She will need follow-up in the office with Dr. Licona in one week. We'll continue to follow. I performed a history & physical examination of the patient and discussed their management with my nurse practitioner, Maureen Strong. I reviewed the nurse practitioner's note and agree with the documented findings and plan of care. Lung sounds are positive for clear breath sounds. The findings and the impression was discussed with the patient. I attest to the documentation by the nurse practitioner. Time with Patient: Less than 30
[2018-03-16] MEDS: PANTOPRAZOLE 40 MG TABLET PO SCH (08:46)
[2018-03-16] MEDS: CLOPIDOGREL 75 MG TAB PO SCH (08:47)
[2018-03-16] MEDS: ASPIRIN 325 MG TAB PO SCH (08:47)
[2018-03-16] MEDS: ATORVASTATIN 40 MG TAB PO SCH (08:47)
[2018-03-16] MEDS: MUPIROCIN 2% OINT 22 GM TUBE NASAL SCH ×3 (08:47→20:27)
[2018-03-16] MEDS: METOPROLOL TARTRATE 25 MG TAB PO SCH ×2 (08:47→20:28)
--- NOTE | 2018-03-16 09:04 | XR ---
EXAMINATION TYPE: XR chest 2V DATE OF EXAM: 03/16/2018 COMPARISON: 03/15/2018 TECHNIQUE: PA and lateral views submitted. HISTORY: Post cardiac surgery FINDINGS: There appears to be free air within the abdominal cavity. Epicardial lead and postsurgical changes ar e noted involving the mediastinum. Atherosclerotic change aorta. Left lower lobe infiltrate and small effusion stable. Bilateral chest tubes have been removed and there is a 5-10% right apical pneumotho rax. No definite sizable pneumothorax on the left. Degenerative change of the spine. IMPRESSION: 1. 5-10% right apical pneumothorax. There is a small amount of free intraperitoneal air within the ab dominal cavity. Report called to patient's nurse. 2. Left lower lobe infiltrate and small effusion.
[2018-03-16] MEDS ORDERED: FUROSEMIDE 10 MG/ML 2 ML VIAL IV ONE (10:30)
--- NOTE | 2018-03-16 11:52 | P.PN ---
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 POD #3 urgent coronary artery bypass grafting 3 vessels, left internal mammary artery to the left anterior descending artery, a reverse greater saphenous vein graft to the obtuse marginal artery, a reverse greater saphenous vein graft to posterior descending artery. Endoscopic harvesting of bilateral greater saphenous veins. Epi-aortic ultrasound. Intraoperative transesophageal echocardiogram. Postoperative acute blood loss anemia, an expected outcome secondary to cardiopulmonary bypass pump and hemodilution. Patient is currently sitting up to the bedside chair. She is in no acute distress. Currently she denies any complaints of pain or shortness of breath. She remains hemodynamically stable. She reports that she is ambulated in the ICU hallway with minimal assistance 3 times a day yesterday and once this morning. No further complaints of restless leg and states that she feels the medication they started her on for the restless leg has helped. The patient's daughters are at her bedside and discharge instructions have been reviewed with the patient and her daughters with possible discharge home tomorrow. Objective - Vital Signs Vital signs: Vital Signs Temp 98.4 F 03/16/18 08:30 Pulse 73 03/16/18 08:30 Resp 18 03/16/18 08:30 BP 138/65 03/16/18 08:30 Pulse Ox 98 03/16/18 09:00 Intake & Output 03/15/18 03/16/18 03/16/18 18:59 06:59 18:59 Intake Total 750 Output Total 593 600 Balance 157 -600 Weight 42.2 kg Intake: IV 290 Lactated Ringers 1,000 ml 290 @ 20 mls/hr IV .Q24H [id number] Rx#:[id number] Oral 460 Output: Chest Tube Drainage 135 Bilateral Lateral Chest 70 Left Lateral Chest 15 Mediastinal 20 Right Lateral Chest 30 Urine 458 600 Other: Voiding Method Indwelling Catheter Indwelling Catheter Indwelling Catheter ABP, PAP, CO, CI - Last Documented Arterial Blood Pressure 120/48 Pulmonary Artery Pressure 23/11 Cardiac Output 3.5 Cardiac Index 2.5 - Constitutional General appearance: Present: cooperative, no acute distress, thin - Respiratory Details: Lung sounds essentially clear throughout, diminished bilateral bases. Respirations are symmetrical and nonlabored. Oxygen saturation are 94% on room air. She is achieving 750-1000 mL on her incentive spirometry. - Cardiovascular Details: Regular rhythm and rate. S1 and S2 present, negative for S3, gallop or murmur. Sternum is stable. Bedside telemetry showing normal sinus rhythm heart rate 80. No edema present. Knee-high ELY hose and sequential compression devices in place to bilateral lower extremities. Heart hugger is in place and she is demonstrating appropriate use. Atrial and ventricular epicardial pacemaker wires in place and grounded. - Gastrointestinal Gastrointestinal Comment(s): Abdomen is soft, nontender and nondistended. Active bowel sounds present in all 4 abdominal quadrants. Tolerating oral intake. Passing flatus. No guarding or rigidity. No organomegaly. - Genitourinary Genitourinary Comment(s): Puga catheter for accurate I&O. Draining clear fabienne urine. 500 mL output in the last 8 hours. - Integumentary Integumentary Comment(s): Skin is warm and dry. No clubbing or cyanosis is present. No rash or abnormal pigmentation present. Midline sternal incision is clean, dry and approximated. No drainage or redness present. Gauze dressing present, dry and intact. Left and right lower extremity EVH sites clean, dry and approximated. No drainage or redness present. - Neurologic Neurologic: Present: CNII-XII intact - Musculoskeletal Musculoskeletal: Present: gait normal, strength equal bilaterally - Psychiatric Psychiatric: Present: A&O x's 3, appropriate affect, intact judgment & insight - Allied health notes Allied health notes reviewed: nursing - Labs CBC & Chem 7: 03/16/18 06:45 03/16/18 06:45 Labs: Abnormal Lab Results - Last 24 Hours (Table) 03/15/18 03/15/18 03/16/18 Range/Units 12:21 17:24 06:45 RBC (3.80-5.40) m/uL Hgb (11.4-16.0) gm/dL Hct (34.0-46.0) % BUN 18 H (7-17) mg/dL POC Glucose (mg/dL) 129 H 102 H (75-99) mg/dL Magnesium 2.4 H (1.6-2.3) mg/dL AST 51 H (14-36) U/L Total Protein 5.0 L (6.3-8.2) g/dL Albumin 3.0 L (3.5-5.0) g/dL 03/16/18 Range/Units 06:45 RBC 3.04 L (3.80-5.40) m/uL Hgb 8.7 L (11.4-16.0) gm/dL Hct 27.0 L (34.0-46.0) % BUN (7-17) mg/dL POC Glucose (mg/dL) (75-99) mg/dL Magnesium (1.6-2.3) mg/dL AST (14-36) U/L Total Protein (6.3-8.2) g/dL Albumin (3.5-5.0) g/dL - Imaging and Cardiology Chest x-ray: report reviewed, image reviewed Assessment and Plan (1) Coronary artery disease Current Visit: Yes Status: Acute Code(s): I25.10 - ATHSCL HEART DISEASE OF [place] CORONARY ARTERY W/O ANG PCTRS SNOMED Code(s): 26324597 (2) Left main coronary artery disease Current Visit: Yes Status: Acute Code(s): I25.10 - ATHSCL HEART DISEASE OF [place] CORONARY ARTERY W/O ANG PCTRS SNOMED Code(s): 938756300 (3) Family history of premature coronary artery disease Current Visit: Yes Status: Chronic Code(s): Z82.49 - FAMILY HX OF I[place]HE[place] HEART DIS AND OTH DIS OF THE CIRC SYS SNOMED Code(s): 400708400 (4) Hyperlipidemia Current Visit: Yes Status: Chronic Code(s): E78.5 - HYPERLIPIDEMIA, UNSPECIFIED SNOMED Code(s): 64201083 Plan: 1. Continue aspirin, statin, Plavix and beta lobito. Will increase beta lobito as tolerated. 2. Encourage incentive spirometry is 10 times every hour while awake. 3. Bronchodilators management per pulmonology. 4. Increase activity, ambulate as tolerated. PT/OT/cardiac rehab following 5. Will discontinue Puga catheter today. 6. Pain controlled current medication regimen. Discontinue Severance. 7. Will monitor daily labs and x-rays. Electrolyte replacement protocol. Lasix 20 mg IV 1 now. 8. Insulin management per primary care service. 9. GI prophylaxis with Protonix, DVT prophylaxis with subcu heparin, SCDs. 10. Remove epicardial pacemaker wires. Atrial and ventricular epicardial pacemaker wires removed at 8:30 this a.m. without incident. Bedrest for 1 hour post pacemaker wire removal. 11. Anticipate discharge home with [facility] [place] in the next [address] planning in place. 12. More recommendations to follow based on patient's clinical course. Time with Patient: Greater than 30
[2018-03-16 17:29] LABS: Glucose,Whole Blood 97 mg/dL (75-99)
[2018-03-16 17:29] LABS: Glucose,Whole Blood 62 mg/dL (75-99)
[2018-03-16] MEDS: SODIUM CHLORIDE 0.9% 1,000 ML IV SCH (19:36)
[2018-03-16] MEDS: ISOSORBIDE MONONITRATE ER 15 MG TAB PO SCH (19:37)
[2018-03-16] MEDS: ATORVASTATIN 20 MG TAB PO SCH (19:37)
[2018-03-16] MEDS: METOPROLOL SUCCINATE (ER) 25 MG TAB.ER.24H PO SCH (19:37)
[2018-03-16] MEDS: SENNOSIDES-DOCUSATE SODIUM 1 EACH TAB PO SCH (20:27)
[2018-03-16 21:01] LABS: Glucose,Whole Blood 124 mg/dL (75-99)
[2018-03-17 03:24] VITALS: RESP 18
[2018-03-17 05:31] LABS: Glucose,Whole Blood 100 mg/dL (75-99)
[2018-03-17] MEDS: INSULIN ASPART 100 UNIT/ML 1 ML 10 ML VIAL SQ SCH ×2 (06:32→11:58)
[2018-03-17] MEDS: KETOROLAC 30 MG/ML 1 ML VIAL IVP SCH ×2 (06:39→12:03)
[2018-03-17] MEDS: PANTOPRAZOLE 40 MG TABLET PO SCH (06:39)
[2018-03-17 07:39] LABS: ALT 50 U/L (9-52); AST 50 U/L (14-36); Albumin 2.7 g/dL (3.5-5.0); Alkaline Phosphatase 116 U/L (38-126); Anion Gap 3 mmol/L; Blood Urea Nitrogen 18 mg/dL (7-17); Calcium 8.2 mg/dL (8.4-10.2); Carbon Dioxide 28 mmol/L (22-30); Chloride 109 mmol/L (98-107); Glucose 87 mg/dL (74-99); Phosphorus 3.4 mg/dL (2.5-4.5); Potassium 4.1 mmol/L (3.5-5.1); Sodium 140 mmol/L (137-145); Total Bilirubin 0.8 mg/dL (0.2-1.3); Total Protein 4.6 g/dL (6.3-8.2)
[2018-03-17] MEDS: IPRATROPIUM-ALBUTEROL 3 ML NEB INHALATION SCH ×3 (07:40→15:40)
--- NOTE | 2018-03-17 07:40 | XR ---
EXAMINATION TYPE: XR chest 2V DATE OF EXAM: 03/17/2018 COMPARISON: Prior chest x-ray 03/16/2018 HISTORY: Status post coronary artery bypass graft TECHNIQUE: Frontal and lateral views of the chest are obtained. FINDINGS: Lucency beneath the right and left hemidiaphragms is no longer seen. Retrocardiac density persists, the left hemidiaphragm is obscured. Minimal right apical pneumothorax described on previous exam not seen with certainty. Patient is post median sternotomy. Heart is stable. Interstitium is in creased. There are cardiac leads. IMPRESSION: Correlate to exclude interstitial edema. Probable left lower lobe atelectasis and associ ated effusion. Additional interval changes described above.
--- NOTE | 2018-03-17 07:55 | P.PN ---
Progress Note - Text The patient is a 78-year-old female who is post triple bypass surgery 4 days previous. Patient is sitting up in her chair in her room. Family surrounding her. She is alert and oriented. In no acute distress. Denies any problems with her breathing this morning. She has eaten about half breakfast this morning. Last recorded vital signs show a temperature 97.8 with a pulse of 86 and respirations 18. Blood pressure 148/70 and she is 96 percent saturated on room air. Lungs are generally clear and heart regular. Abdomen nontender. She does have some pedal edema. No calf tenderness or swelling. She is alert and oriented without cranial nerve deficits. Laboratory Sodium 140 with potassium 4.1. BUN of 18 with creatinine 0.72 given her GFR of 81. Blood sugar was 100. Albumin still low at 2.7. Calcium 8.2. Chest x-ray is reported as probable left lower lobe atelectasis with effusion. Possible interstitial edema. Impressions and plans Patient is generally doing well postop from her coronary artery bypass surgery. Weight from further recommendations from cardiology and thoracic surgery. Discussed with patient and nursing staff this morning. Anticipating possible discharge if okay with surgery today. She will need follow-up with cardiology and surgery. She is to contact the office if any concerns or problems.
[2018-03-17 08:01] LABS: Basophils % (A) 1 %; Eosinophils # (A) 0.2 k/uL (0-0.7); Eosinophils % (A) 6 %; HCT 23.4 % (34.0-46.0); HGB 7.7 gm/dL (11.4-16.0); Hypochromasia Slight; Lymphocytes # (A) 0.8 k/uL (1.0-4.8); Lymphocytes % (A) 22 %; MCH 29.1 pg (25.0-35.0); MCV 88.2 fL (80.0-100.0); Mean Platelet Volume 8.2; Monocytes # (A) 0.2 k/uL (0-1.0); Monocytes % (A) 6 %; Neutrophils # (A) 2.3 k/uL (1.3-7.7); Neutrophils % (A) 61 %; Platelet Count 188 k/uL (150-450); RBC 2.65 m/uL (3.80-5.40); RDW 14.8 % (11.5-15.5); WBC 3.7 k/uL (3.8-10.6)
--- NOTE | 2018-03-17 08:16 | P.PN ---
Subjective Progress Note Date: 03/17/18 Principal diagnosis: Severe triple-vessel coronary artery disease This is a pleasant 78-year-old female patient who sees Dr. Patel in the office as an outpatient who was experiencing recently chest discomfort concerning for angina and underwent a heart catheterization and that revealed severe triple-vessel coronary artery disease. The patient underwent artery artery that is grafting 3 where she received MARSHALL to LAD, SVG to OM, and SVG to RCA. On follow-up with the patient today, March 17, the patient is doing good clinically. She was transferred from the ICU yesterday. Hemodynamically she continues to be stable. She also continues to be in normal sinus mechanism. The hemoglobin this morning is 7.7. The creatinine continues to be stable. Electrolytes are within normal limits as well. The chest x-ray from this morning showed left pleural effusion. I would suggest giving the patient a dose of Lasix. She continues to be on dual antiplatelet therapy along with statin as well as metoprolol. Objective - Vital Signs Vital signs: Vital Signs Temp 97.8 F 03/17/18 03:20 Pulse 86 03/17/18 03:20 Resp 18 03/17/18 03:20 BP 148/70 03/17/18 03:20 Pulse Ox 96 03/17/18 03:20 Intake & Output 03/16/18 03/17/18 03/17/18 18:59 06:59 18:59 Intake Total 860 20 Balance 860 20 Weight 50.1 kg Intake: IV 20 0.9 20 Oral 860 Other: Voiding Method Toilet Toilet # Voids 2 ABP, PAP, CO, CI - Last Documented Arterial Blood Pressure 120/48 Pulmonary Artery Pressure 23/11 Cardiac Output 3.5 Cardiac Index 2.5 - Constitutional General appearance: Present: no acute distress - Respiratory Respiratory: bilateral: diminished - Cardiovascular Rhythm: regular Heart sounds: normal: S1, S2 - Labs CBC & Chem 7: 03/17/18 06:34 03/17/18 06:34 Labs: Abnormal Lab Results - Last 24 Hours (Table) 03/16/18 03/16/18 03/17/18 Range/Units 16:59 20:59 05:30 WBC (3.8-10.6) k/uL RBC (3.80-5.40) m/uL Hgb (11.4-16.0) gm/dL Hct (34.0-46.0) % Lymphocytes # (1.0-4.8) k/uL Chloride (98-107) mmol/L BUN (7-17) mg/dL POC Glucose (mg/dL) 62 L 124 H 100 H (75-99) mg/dL Calcium (8.4-10.2) mg/dL AST (14-36) U/L Total Protein (6.3-8.2) g/dL Albumin (3.5-5.0) g/dL 03/17/18 03/17/18 Range/Units 06:34 06:34 WBC 3.7 L (3.8-10.6) k/uL RBC 2.65 L (3.80-5.40) m/uL Hgb 7.7 L (11.4-16.0) gm/dL Hct 23.4 L (34.0-46.0) % Lymphocytes # 0.8 L (1.0-4.8) k/uL Chloride 109 H (98-107) mmol/L BUN 18 H (7-17) mg/dL POC Glucose (mg/dL) (75-99) mg/dL Calcium 8.2 L (8.4-10.2) mg/dL AST 50 H (14-36) U/L Total Protein 4.6 L (6.3-8.2) g/dL Albumin 2.7 L (3.5-5.0) g/dL Assessment and Plan Assessment: Assessment #1 severe triple-vessel coronary artery disease #2 hypertension #3 dyslipidemia Plan #1 the patient is status post CABG 3 #2 continue the current medical regimen including dual antiplatelet therapy and statin #3 continue daily chest x-ray and continue daily CBC and BMP #4 follow-up with the patient
[2018-03-17] MEDS ORDERED: FUROSEMIDE 10 MG/ML 2 ML VIAL IV STA (08:58)
[2018-03-17] MEDS: HEPARIN SODIUM,PORCINE 5,000 UNIT/ML 1 ML VIAL SQ SCH (09:49)
[2018-03-17] MEDS: ATORVASTATIN 40 MG TAB PO SCH (09:49)
[2018-03-17] MEDS: CLOPIDOGREL 75 MG TAB PO SCH (09:49)
[2018-03-17] MEDS: METOPROLOL TARTRATE 25 MG TAB PO SCH (09:49)
[2018-03-17] MEDS: ASPIRIN 325 MG TAB PO SCH (09:49)
[2018-03-17 11:26] LABS: Glucose,Whole Blood 103 mg/dL (75-99)
[2018-03-17 14:13] VITALS: BP 99/52; PULSE 82; TEMP 98.5
--- NOTE | 2018-03-17 14:19 | P.DS ---
Providers Date of admission: 03/11/18 11:25 Expected date of discharge: 03/17/18 Attending physician: Meño Her Consults: 03/09/18 08:43 Consult Physician Urgent Consulting Provider: Yobany Astorga Consult Reason/Comments: needs cabg Do you want consulting provider notified?: Already Contacted 03/10/18 06:51 Consult Physician Routine Consulting Provider: Hebert Sherman Consult Reason/Comments: preop cabg Do you want consulting provider notified?: Yes 03/10/18 13:43 Consult to Anesthesia Routine Consulting Provider: Anesthesia,Services Consult Reason/Comments: Cardiac Surgery Pre-Op 03/13/18 13:11 Consult Physician Routine Consulting Provider: Dimitrios Dyson Consult Reason/Comments: medical managment Do you want consulting provider notified?: Already Contacted Consult Physician Routine Consulting Provider: Sinan Alvarez Consult Reason/Comments: Planning Feeder Consult: post cardiac surgery Do you want consulting provider notified?: Already Contacted Primary care physician: Dimitrios Dyson - Discharge Diagnosis(es) (1) Coronary artery disease Current Visit: Yes Status: Acute (2) Left main coronary artery disease Current Visit: Yes Status: Acute (3) Family history of premature coronary artery disease Current Visit: Yes Status: Chronic (4) Hyperlipidemia Current Visit: Yes Status: Chronic Hospital Course: FINAL DIAGNOSIS: 1. Symptomatic multivessel coronary artery disease with left main disease 2. Hyperlipidemia 3. Family history of premature coronary artery disease PRINCIPAL PROCEDURE: 1. Left heart catheterization and coronary artery angiogram performed by Dr. Owen Alvarez. 2. Coronary artery bypass grafting 3 vessels left internal mammary artery to left anterior descending coronary artery, a reverse greater saphenous vein graft to the obtuse marginal coronary artery, reverse greater saphenous vein graft to the posterior descending coronary artery. 3. Endoscopic harvesting of bilateral greater saphenous veins. 4. Epi-aortic ultrasound. 5. Intraoperative transesophageal echocardiogram. HISTORY OF PRESENT ILLNESS: This is a 78-year-old female patient who is followed by Dr. Dyson on an outpatient basis. Patient has a past medical history significant for hyperlipidemia and family history of premature coronary artery disease with her father at age 51. The patient was followed by Dr. Alvarez from [facility] for complaints of progressive exertional angina and chest heaviness which radiated down both of her arm and was associated with some nausea and emesis. Due to these complaints she underwent a nuclear stress test which was abnormal. For further evaluation a trans- thoracic echocardiogram was completed on 02/28/2018 which showed a normal LV function with an ejection fraction of 55%, normal motion abnormalities, a grade 1 diastolic dysfunction, mild mitral valve regurgitation and trace tricuspid valve regurgitation. She was recommended to undergo an elective heart catheterization and on 03/09/2018 and elective heart catheterization was completed which demonstrated a distal left main stenosis of 60%, and ostial LAD stenosis 80-90%, a diagonal stenosis 80% and a proximal right coronary artery stenosis of 95%. Due to the cardiac catheterization findings the patient was admitted to the hospital and a consult was placed to Dr. Yobany Astorga from cardiothoracic surgery for further recommendations. Dr. Astorga met with the patient and her family, reviewed the cardiac catheterization findings and recommended she undergo an urgent myocardial revascularization surgery. The risks and benefits of the surgery were discussed including the STS risk score and the patient decided to proceed with urgent myocardial revascularization surgery. HOSPITAL COURSE: The patient was admitted to the hospital and after obtaining consent was taken to the operating room where Dr. Meño Her performed an urgent coronary artery bypass grafting 3 vessels with left internal mammary artery to the left anterior descending coronary artery, reverse greater saphenous vein graft to the obtuse marginal coronary artery and a reverse greater saphenous vein graft to the posterior descending coronary artery. She also underwent endoscopic harvesting of her bilateral greater saphenous veins, intraoperative epi-aortic ultrasound and intraoperative transesophageal echocardiogram. Upon completion of the surgery she was transferred to the cardiovascular intensive care unit where she was recovered, monitored hemodynamically and where she progressed cardiac rehabilitation phase 1. She was extubated, all lines, tubes and supportive drips were discontinued when appropriate and she was transferred to [address] [place] [address] cardiac stepdown unit for further monitoring and rehabilitation. Her oxygen was titrated off, she continued to work with physical and occupational therapy, she is tolerating oral diet, her pain is well controlled and she is ready to be discharged home with [facility] care on postoperative day #4. She has received written and verbal instructions regarding her medications, activity restrictions, signs and symptoms requiring physician notification and her follow-up appointments. COMPLICATIONS: There were no postoperative complications. CONSULTATIONS: 1. Dr. Alvarez for cardiology management. 2. Dr. Dyson for medical management. 3. Dr. Sherman for pulmonary and ventilator management. DISCHARGE INSTRUCTIONS: 1. No driving for 4 weeks, or until physician gives their ok. 2. The patient should sleep in their own bed, no medical bed needed. 3. Stairs are not an issue. If the bedroom is upstairs, it is advised that the patient go up at night and down in the morning for the first week. Go slowly, using handrail and take 1 step at a time. 4. ELY hose are to be worn for 30 days or until physician discontinues. 5. Heart hugger is to be worn 100% of the time until physician discontinues.( except when showering) 6. No lifting, pushing, or pulling more than 10 pounds for 12 weeks. The physician will advise of any restriction changes. 7. The patient is expected to continue the prescribed walking program. 8. Continue pain control per as needed orders. 9. Continue with incentive spirometry and splinting/heart hugger until otherwise directed by the physician. 10. Must shower daily using liquid antibacterial soap and a separate white washcloth for each individual incision. 11. Routine sternal incision care, no ointments, lotions or powders on the incisions. 12. Please notify surgeon/nurse practitioner for temperature greater than 101F or purulent drainage from incisions 13. Prescriptions for first 30 days given per cardiac surgery service. After 30 days, all prescription refills obtained through cardiology/primary care physician. 14. A red arm and has been placed on this patient it should be worn for 30 days post surgery and will be removed by the cardiothoracic surgeons. If an ER visit is necessary, please make sure the number on the red arm band is called. HOME HEALTH SERVICES TO PROVIDE: RN SKILLED HOME CARE SERVICES FOR POST-OP SURGICAL PATIENTS WITH THE FOLLOWING: Coronary Artery Bypass Surgery (CABG), Mitral Valve Replacement/ Repair ( MVR), Aortic Valve Replacement/Repair (AVR) RN TO CONTINUE EDUCATION FROM ``ROAD TO A HEALTH HEART PATIENT EDUCATION MANUAL" (GIVEN TO PATIENT IN THE HOSPITAL) MEDICATION RECONCILIATION WITH EDUCATION NEEDED ON FIRST HOME VISIT EMPHASIZE IMPORTANCE OF WEARING BREAST SUPPORT/HEART HUGGER ENCOURAGE USE OF INCENTIVE SPIROMETER 10 X EVERY HOUR WHILE AWAKE ENCOURAGE UTILIZATION OF LOWER EXTREMITY COMPRESSION STOCKINGS/ELY HOSE and ELEVATE LEGS ABOVE LEVEL OF HEART WHILE AT REST. ENCOURAGE AMBULATION 3-5x/day INCREASING TOLERATES, WHILE AVOID EXTREMES IN TEMPERATURE FREQUENCY: RN TO OPEN THE PATIENT WITHIN 24 HOURS OF DISCHARGE FROM THE HOSPITAL WITH TELEHEALTH INSTALLED AT [facility], RN TO VISIT 2-3 X A WEEK FOR 4 WEEKS ESTABLISHED BY PATIENT NEEDS. LABORATORY: CBC, CMP TO BE DRAWN ON THE THIRD DAY HOME, 03/20/2018 (RAN STAT ) FAX RESULTS TO [phone]. TELEHEALTH PARAMETERS: WEIGHT: NOTIFY MD OF WEIGHT GAIN OF 2 LBS IN 24 HOURS OR 5 LBS IN ONE WEEK HR: NOTIFY MD OF HR <55 BPM OR HR>100 BPM BP: NOTIFY MD IF BP <90/55 OR BP>140/100 O2 SAT: NOTIFY MD IF PO2<93% ON ROOM AIR SEND TELEHEALTH REPORT TO BAKE ROOM WORKER AND CARDIOVASCULAR SURGEON THE FIRST WEEK OF CARE AND THEN BI-WEEKLY. PLEASE ADDITIONALLY COMMUNICATE ANY ABNORMALS AND NEW FINDINGS TO THE SURGEONS OFFICE. Plan - Discharge Summary Discharge Rx Participant: Yes New Discharge Prescriptions: New Acetaminophen Tab [Tylenol] 650 mg PO Q4HR PRN tab PRN Reason: MODERATE Fever and/ or Pain Aspirin 325 mg PO DAILY tab Atorvastatin [Lipitor] 40 mg PO DAILY #30 tab Clopidogrel [Plavix] 75 mg PO DAILY #30 tab Metoprolol Tartrate [Lopressor] 25 mg PO BID #60 tab Pantoprazole [Protonix] 40 mg PO AC-BRKFST #30 tablet. rOPINIRole HCL [Requip] 0.25 mg PO BID PRN #30 tab PRN Reason: Restless Leg Sennosides-Docusate Sodium [Senokot-S] 2 each PO HS #14 tab Furosemide [Lasix] 20 mg PO DAILY #5 tab Continue Calcium Carbonate [Calcium] 600 mg PO DAILY Ubidecarenone [Co Q-10] 100 mg PO DAILY Discontinued Red Yeast Rice 600 mg PO DAILY Magnesium 1,000 mg PO HS Aspirin [Adult Low Dose Aspirin EC] 81 mg PO HS Isosorbide Mononitrate ER [Imdur] 15 mg PO DAILY Metoprolol Succinate (ER) [Toprol Xl] 25 mg PO DAILY Discharge Medication List Calcium Carbonate [Calcium] 600 mg PO DAILY 03/07/18 [History] Ubidecarenone [Co Q-10] 100 mg PO DAILY 03/12/18 [History] Acetaminophen Tab [Tylenol] 650 mg PO Q4HR PRN tab 03/17/18 [Rx] Aspirin 325 mg PO DAILY tab 03/17/18 [Rx] Atorvastatin [Lipitor] 40 mg PO DAILY #30 tab 03/17/18 [Rx] Clopidogrel [Plavix] 75 mg PO DAILY #30 tab 03/17/18 [Rx] Furosemide [Lasix] 20 mg PO DAILY #5 tab 03/17/18 [Rx] Metoprolol Tartrate [Lopressor] 25 mg PO BID #60 tab 03/17/18 [Rx] Pantoprazole [Protonix] 40 mg PO MICHAEL-MAREN #30 tablet. 03/17/18 [Rx] Sennosides-Docusate Sodium [Senokot-S] 2 each PO HS #14 tab 03/17/18 [Rx] rOPINIRole HCL [Requip] 0.25 mg PO BID PRN #30 tab 03/17/18 [Rx] Follow up Appointment(s)/Referral(s): Hebert Sherman MD [STAFF PHYSICIAN] - 03/22/18 2:30 pm Janice Barrow NPC [Nurse Practitioner] - 03/23/18 12:00 pm [facility], [NON-STAFF] - 1-2 Days Meño Her MD [STAFF PHYSICIAN] - 04/14/18 10:00 am Dimitrios Dyson MD [Primary Care Provider] - 03/21/18 11:00 am () Sinan Alvarez MD [STAFF PHYSICIAN] - 03/28/18 4:00 pm Patient Instructions/Handouts: Sternal Precautions (GEN), Coronary Artery Bypass Graft (DC) Activity/Diet/Wound Care/Special Instructions: Pt would like discharge rx DISCHARGE INSTRUCTIONS: 1. No driving for 4 weeks, or until physician gives their ok. 2. The patient should sleep in their own bed, no medical bed needed. 3. Stairs are not an issue. If the bedroom is upstairs, it is advised that the patient go up at night and down in the morning for the first week. Go slowly, using handrail and take 1 step at a time. 4. ELY hose are to be worn for 30 days or until physician discontinues. 5. Heart hugger is to be worn 100% of the time until physician discontinues.( except when showering) 6. No lifting, pushing, or pulling more than 10 pounds for 12 weeks. The physician will advise of any restriction changes. 7. The patient is expected to continue the prescribed walking program. 8. Continue pain control per as needed orders. 9. Continue with incentive spirometry and splinting/heart hugger until otherwise directed by the physician. 10. Must shower daily using liquid antibacterial soap and a separate white washcloth for each individual incision. 11. Routine sternal incision care, no ointments, lotions or powders on the incisions. 12. Please notify surgeon/nurse practitioner for temperature greater than 101F or purulent drainage from incisions 13. Prescriptions for first 30 days given per cardiac surgery service. After 30 days, all prescription refills obtained through cardiology/primary care physician. 14. A red arm and has been placed on this patient it should be worn for 30 days post surgery and will be removed by the cardiothoracic surgeons. If an ER visit is necessary, please make sure the number on the red arm band is called. HOME HEALTH SERVICES TO PROVIDE: RN SKILLED HOME CARE SERVICES FOR POST-OP SURGICAL PATIENTS WITH THE FOLLOWING: Coronary Artery Bypass Surgery (CABG), Mitral Valve Replacement/ Repair ( MVR), Aortic Valve Replacement/Repair (AVR) RN TO CONTINUE EDUCATION FROM ``ROAD TO A HEALTH HEART PATIENT EDUCATION MANUAL" (GIVEN TO PATIENT IN THE HOSPITAL) MEDICATION RECONCILIATION WITH EDUCATION NEEDED ON FIRST HOME VISIT EMPHASIZE IMPORTANCE OF WEARING BREAST SUPPORT/HEART HUGGER ENCOURAGE USE OF INCENTIVE SPIROMETER 10 X EVERY HOUR WHILE AWAKE ENCOURAGE UTILIZATION OF LOWER EXTREMITY COMPRESSION STOCKINGS/ELY HOSE and ELEVATE LEGS ABOVE LEVEL OF HEART WHILE AT REST. ENCOURAGE AMBULATION 3-5x/day INCREASING TOLERATES, WHILE AVOID EXTREMES IN TEMPERATURE FREQUENCY: RN TO OPEN THE PATIENT WITHIN 24 HOURS OF DISCHARGE FROM THE HOSPITAL WITH TELEHEALTH INSTALLED AT [facility], RN TO VISIT 2-3 X A WEEK FOR 4 WEEKS ESTABLISHED BY PATIENT NEEDS. LABORATORY: CBC, CMP TO BE DRAWN ON THE THIRD DAY HOME, 03/20/2018 (RAN STAT ) FAX RESULTS TO [phone]. TELEHEALTH PARAMETERS: WEIGHT: NOTIFY MD OF WEIGHT GAIN OF 2 LBS IN 24 HOURS OR 5 LBS IN ONE WEEK HR: NOTIFY MD OF HR <55 BPM OR HR>100 BPM BP: NOTIFY MD IF BP <90/55 OR BP>140/100 O2 SAT: NOTIFY MD IF PO2<93% ON ROOM AIR SEND TELEHEALTH REPORT TO BAKE ROOM WORKER AND CARDIOVASCULAR SURGEON THE FIRST WEEK OF CARE AND THEN BI-WEEKLY. PLEASE ADDITIONALLY COMMUNICATE ANY ABNORMALS AND NEW FINDINGS TO THE SURGEONS OFFICE. Discharge Disposition: HOME WITH HOME HEALTH SERVICES
--- NOTE | 2018-03-17 14:47 | PN ---
PROGRESS NOTE DATE OF SERVICE: 03/17/2018 This is a 78-year-old female who is postop day #4, status post multivessel coronary artery disease. The patient had bypass grafting 4 days ago. She is doing relatively well. She may be discharged home today. No decision has been made as yet. She has a history of postoperative anemia, status post routine postop ventilator management, hyperlipidemia. FAMILY HISTORY: Of premature coronary disease, and she is a lifelong nonsmoker. The patient has no particular complaints. Denies any chest pain or chest discomfort. Not short of breath. Not receiving any supplemental oxygen. No IVs. Chest tubes and mediastinal tube have been removed. Current vital signs are reviewed. Temperature 98.5, heart rate 82, respiratory rate 16, blood pressure 99/52, room air saturation 99%. Appears in no acute distress. HEENT examination is grossly unremarkable. Mucous membranes are moist. No supplemental oxygen noted. Neck is supple. Full range of motion. No adenopathy or thyromegaly. Neck veins are flat. Cardiovascular examination reveals a regular rhythm and rate. S1, S2 normal. No S3, S4, or murmur. Lungs are clear. Breath sounds are equal. No wheezes, rhonchi, or crackles. Abdomen is soft. Bowel sounds are heard. Extremities are intact. No cyanosis, clubbing, or edema. Skin without rash. Neurologic examination is brief but nonfocal. LABORATORY DATA: Reviewed. White count 3.7, hemoglobin 7.7, hematocrit 23.4, platelet count 188,000, sodium and potassium normal, chloride is 109, CO2 is 28, anion gap is 3, BUN and creatinine were 18 and 0.72. Chest x-ray today reveals some postoperative changes. There is some mild interstitial edema. Some atelectasis in the left lower lobe and a small left pleural effusion. Medications are reviewed. ASSESSMENT: 1. Postoperative day #4, status post 3-vessel bypass grafting. 2. History of coronary artery disease. 3. Status post routine postoperative ventilator management, resolved. 4. Postoperative blood loss requiring 2 units of PRBCs. 5. Hyperlipidemia by history. 6. Family history of premature coronary disease. 7. Lifelong nonsmoker. PLAN: The patient will follow with me was in a week or so. At that time, will do a chest x- ray. Will also make sure that we evaluate her sternum. Additional recommendations and suggestions are forthcoming. No decision has been made yet as to discharge. Will continue to follow. Prognosis is guarded. No history of any intrinsic pulmonary disease. MMODL / IJN: [id number] /
== END 2018-03-17 15:40 | disposition home health service (06) | DRG 234 ==
LOC: CATHCVL 06:23 → 3SCARD 08:00 → CATHCVL 03-11 11:24 → 3SCARD 03-11 11:25 → CATHCVL 03-12 04:00 → 3SCARD 03-12 04:02 → UNDOADMIN 03-12 04:02 → 2SICU 03-13 14:06 → 3SCARD 03-16 12:36
PROVIDERS: ADMIT Internal Medicine Cardiovascular Disease; ATTEND Surgery
PROC: 4A023N7 Measurement of Cardiac Sampling and Pressure, Left Heart, Percutaneous Approach (ICD-10-PCS; 2018-03-09)
PROC: B2111ZZ Fluoroscopy of Multiple Coronary Arteries using Low Osmolar Contrast (ICD-10-PCS; 2018-03-09)
PROC: 021109W Bypass Coronary Artery, Two Arteries from Aorta with Autologous Venous Tissue, Open Approach (ICD-10-PCS; 2018-03-13)
PROC: 06BQ4ZZ Excision of Left Saphenous Vein, Percutaneous Endoscopic Approach (ICD-10-PCS; 2018-03-13)
PROC: 06BP4ZZ Excision of Right Saphenous Vein, Percutaneous Endoscopic Approach (ICD-10-PCS; 2018-03-13)
PROC: 5A1221Z Performance of Cardiac Output, Continuous (ICD-10-PCS; 2018-03-13)
PROC: B24BZZ4 Ultrasonography of Heart with Aorta, Transesophageal (ICD-10-PCS; 2018-03-13)
PROC: 30243N1 Transfusion of Nonautologous Red Blood Cells into Central Vein, Percutaneous Approach (ICD-10-PCS; 2018-03-13)
PROC: 02100Z9 Bypass Coronary Artery, One Artery from Left Internal Mammary, Open Approach (ICD-10-PCS; principal; 2018-03-13 08:00)
DX: I25.110 Atherosclerotic heart disease of native coronary artery with unstable angina pectoris (principal); D62 Acute posthemorrhagic anemia; J90 Pleural effusion, not elsewhere classified; J98.11 Atelectasis; J44.9 Chronic obstructive pulmonary disease, unspecified; E78.00 Pure hypercholesterolemia, unspecified; E78.5 Hyperlipidemia, unspecified; M81.0 Age-related osteoporosis without current pathological fracture; G25.81 Restless legs syndrome; I10 Essential (primary) hypertension; M85.80 Other specified disorders of bone density and structure, unspecified site; I08.2 Rheumatic disorders of both aortic and tricuspid valves; Z88.0 Allergy status to penicillin; Z79.899 Other long term (current) drug therapy; Z82.49 Family history of ischemic heart disease and other diseases of the circulatory system; I70.201 Unspecified atherosclerosis of native arteries of extremities, right leg
CPT/HCPCS: 71045; 71046; 80053; 80061; 80074; 81001; 82330; 82805; 83036; 83735; 84100; 84443; 85025; 85520; 85610; 85730; 86850; 86891; 86900; 86901; 86920; 87070; 87086; 93306; 93458; 93880; 93970; 94002; 94150; 94640; 94760

== ENCOUNTER 2018-11-07 05:02 | Emergency (ER) | payer MEDICARE ==
[2018-11-07 05:15] VITALS: RESP 16; TEMP 98
--- NOTE | 2018-11-07 06:06 | XR ---
EXAM: XR Abdomen, 1 View CLINICAL HISTORY: ITS.REASON XR Reason: abdominal pain TECHNIQUE: Frontal upright view of the abdomen/pelvis. COMPARISON: No relevant prior studies available. FINDINGS: Intraperitoneal space: No free air Gastrointestinal tract: Unremarkable. No dilation. Bones/joints: Unremarkable. IMPRESSION: Negative study.
--- NOTE | 2018-11-07 07:08 | ED ---
Abdominal Pain HPI - General Chief Complaint: Abdominal Pain Stated Complaint: abd pain Time Seen by Provider: 11/07/18 05:14 Source: patient Mode of arrival: ambulatory - History of Present Illness Initial Comments: Ita is a pleasant 78-year-old female presents to the ER today with complaint of diffuse crampy abdominal pain and constipation. Patient reports she's been on a iron supplement for anemia, she states that because of that she's had firm stools and has been constipated. Patient reports she's been taking MiraLAX daily but continues to only have firm pellet-like stools. Patient comes the ER today concerned that she may have an obstruction from the stool. - Related Data Home Medications Medication Instructions Recorded Confirmed Calcium Carbonate [Calcium] 600 mg PO DAILY 03/07/18 03/12/18 Ubidecarenone [Co Q-10] 100 mg PO DAILY 03/12/18 03/12/18 Previous Rx's Medication Instructions Recorded Acetaminophen Tab [Tylenol] 650 mg PO Q4HR PRN tab 03/17/18 Aspirin 325 mg PO DAILY tab 03/17/18 Atorvastatin [Lipitor] 40 mg PO DAILY #30 tab 03/17/18 Clopidogrel [Plavix] 75 mg PO DAILY #30 tab 03/17/18 Furosemide [Lasix] 20 mg PO DAILY #5 tab 03/17/18 Metoprolol Tartrate [Lopressor] 25 mg PO BID #60 tab 03/17/18 Pantoprazole [Protonix] 40 mg PO AC-BRKFST #30 tablet. 03/17/18 Sennosides-Docusate Sodium 2 each PO HS #14 tab 03/17/18 [Senokot-S] rOPINIRole HCL [Requip] 0.25 mg PO BID PRN #30 tab 03/17/18 Allergies Allergy/AdvReac Type Severity Reaction Status Date / Time Penicillins Allergy Rash/Hives Verified 03/12/18 08:10 Review of Systems ROS Statement: Those systems with pertinent positive or pertinent negative responses have been documented in the HPI. ROS Other: All systems not noted in ROS Statement are negative. Past Medical History Past Medical History: Hyperlipidemia Additional Past Medical History / Comment(s): states pinched nerve in back History of Any Multi-Drug Resistant Organisms: None Reported Past Surgical History: Coronary Bypass/CABG Additional Past Surgical History / Comment(s): D&C Past Anesthesia/Blood Transfusion Reactions: No Reported Reaction Past Psychological History: No Psychological Hx Reported Smoking Status: Never smoker Past Alcohol Use History: None Reported Past Drug Use History: None Reported - Past Family History Father Family Medical History: Coronary Artery Disease (CAD) Additional Family Medical History / Comment(s): Father at 51 years old from CAD, uncle at 49 years old from CAD, and passed rate 72 from CAD Brother(s) Additional Family Medical History / Comment(s): Brother with defibrillator General Exam - General Exam Comments Initial Comments: Physical Exam GENERAL: Patient is well-developed and well-nourished. Patient is nontoxic and well- hydrated and is in no distress. HENT: Normocephalic, Atraumatic. EYES: PERRL, EOMI PULMONARY: Unlabored respirations. No audible rales rhonchi or wheezing was noted. CARDIOVASCULAR: There is a regular rate and rhythm without any murmurs gallops or rubs. ABDOMEN: Soft and nontender with normal bowel sounds. SKIN: Skin is clear with no lesions or rashes and otherwise unremarkable. : Deferred NEUROLOGIC: Patient is alert and oriented x3. Moving all extremities spontaneously MUSCULOSKELETAL: Normal extremities with adequate strength and full range of motion. No lower extremity swelling or edema. No calf tenderness. PSYCHIATRIC: Normal psychiatric evaluation. Course Vital Signs 11/07/18 11/07/18 05:08 08:09 Temperature 98 F Pulse Rate 77 76 Respiratory 16 16 Rate Blood Pressure 143/76 140/74 O2 Sat by Pulse 99 98 Oximetry Medical Decision Making - Medical Decision Making The patient was seen and evaluated history is obtained from the patient and sign history and physical exam concerning for constipation and x-rays obtained there is no signs of bowel obstruction patient has no risk factors for bowel obstruction or history of bowel obstruction A rectal exam was performed, dark stool is evacuated, a soapsuds enema was performed approximately 300 mL of enema was instilled in the patient's colon. Patient was unable to ambulate to the restroom have small bowel movement. Patient was given lactulose encouraged to continue MiraLAX and drink plenty of fluids. Patient discharged home in stable condition. Disposition Clinical Impression: Abdominal pain Disposition: HOME SELF-CARE Condition: Stable Instructions (If sedation given, give patient instructions): Abdominal Pain (ED) Is patient prescribed a controlled substance at d/c from ED?: No Referrals: Faye Arellano MD [Primary Care Provider] - 1-2 days
[2018-11-07] MEDS ORDERED: LACTULOSE 20 GM/30 ML CUP PO ONE (07:19)
[2018-11-07 08:15] VITALS: BP 140/74; PULSE 76
== END 2018-11-07 08:09 | disposition home or self-care (01) ==
LOC: EC 05:02
DX: R10.84 Generalized abdominal pain (principal); Z88.0 Allergy status to penicillin; Z95.1 Presence of aortocoronary bypass graft
CPT/HCPCS: 74018; 99284

== ENCOUNTER → 2019-07-27 | Outpatient (CLI) | payer MEDICARE ==
[2019-07-27 18:42] LABS: Chol/HDL Ratio 2.07; LDL Cholesterol,Calculated 57.4 mg/dL (0.0-131.0); VLDL Calculation 17.6 mg/dL (5.00-40.00)
== END | disposition home or self-care (01) ==
LOC: LABWHC1 11:48
PROVIDERS: ATTEND Internal Medicine Cardiovascular Disease
DX: E78.2 Mixed hyperlipidemia (principal)
CPT/HCPCS: 36415; 80061; 84450; 84460

== ENCOUNTER → 2020-05-21 | Outpatient (CLI) | payer MEDICARE ==
[2020-05-21 21:03] LABS: Chol/HDL Ratio 2.2; LDL Cholesterol,Calculated 82.8 mg/dL (0.0-131.0); VLDL Calculation 20.2 mg/dL (5.00-40.00)
== END | disposition home or self-care (01) ==
LOC: LABWHC1 08:50
PROVIDERS: ATTEND Internal Medicine Cardiovascular Disease
DX: E78.2 Mixed hyperlipidemia (principal)
CPT/HCPCS: 36415; 80061; 84450; 84460

== ENCOUNTER → 2020-09-08 | Outpatient (CLI) | payer MEDICARE ==
--- NOTE | 2020-09-12 11:33 | MM ---
Reason for exam: additional evaluation requested from prior study. Last mammogram was performed 2 years and 9 months ago. History: Patient is postmenopausal. Physical Findings: Nurse did not find any significant physical abnormalities on exam. MG 3D Diag Mammo W/Cad QUE Bilateral CC and MLO view(s) were taken. Prior study comparison: December 06, 2017, bilateral MG 3d screening mammo w/cad. November 24, 2016, bilateral MG 3d screening mammo w/cad. May 13, 2014, bilateral MG screening mammo w CAD. The breast tissue is heterogeneously dense. This may lower the sensitivity of mammography. Benign vascular calcifications. Right medial asymmetric density does not persist. No significant new findings when compared with previous films. These results were verbally communicated with the patient and result sheet given to the patient on 09/08/20. ASSESSMENT: Negative, BI-RAD 1 RECOMMENDATION: Routine screening mammogram of both breasts in 1 year.
== END | disposition home or self-care (01) ==
LOC: RADMAMWWP 12:55
PROVIDERS: ATTEND Family Medicine
DX: R92.2 Inconclusive mammogram (principal); Z78.0 Asymptomatic menopausal state
CPT/HCPCS: 77066; G0279; 77062

== ENCOUNTER → 2020-09-08 | Outpatient (CLI) | payer MEDICARE ==
[2020-09-08 11:38] LABS: Appearance,Urine Clear (Clear); Bilirubin,Urine Negative (Negative); Blood,Urine Small (Negative); Color,Urine Yellow; Glucose,Urine (UA) Negative (Negative); Ketones,Urine Negative (Negative); Leukocyte Esterase,Urine Negative (Negative); Mucus,Urine Rare /hpf; Nitrite,Urine Negative (Negative); Protein,Urine Negative (Negative); RBC,Urine 15 /hpf (0-5); Specific Gravity,Urine 1.021 (1.001-1.035); Squamous Epithelial Cell,Urine <1 /hpf (0-4); Urobilinogen,Urine <2.0 mg/dL (<2.0); WBC,Urine 1 /hpf (0-5)
[2020-09-08 15:12] LABS: Basophils # (A) 0.09 X 10*3/uL (0.00-0.10); Basophils % (A) 1.8 %; Eosinophils # (A) 0.26 X 10*3/uL (0.04-0.35); Eosinophils % (A) 5.2 %; HCT 39.9 % (37.2-46.3); HGB 12.9 g/dL (12.0-15.0); Lymphocytes % (A) 25.8 %; MCH 32.3 pg (27.0-32.0); MCHC 32.3 g/dL (32.0-37.0); MCV 99.8 fL (80.0-97.0); Mean Platelet Volume 12.4 fL (9.5-12.2); Monocytes % (A) 9.9 %; Neutrophils # (A) 2.86 X 10*3/uL (1.80-7.70); Neutrophils % (A) 56.9 %; Platelet Count 208 X 10*3/uL (140-440); RDW 11.9 % (11.5-14.5); WBC 5.03 X 10*3/uL (4.50-10.00)
[2020-09-08 15:21] LABS: % Iron Saturation 30.72 (12.00-45.00); African American GFR (CKD) 80.7 (60.0-200.0); Albumin 4.1 g/dL (3.80-4.90); Albumin/Globulin Ratio 2.05 (1.60-3.17); Anion Gap 7.3 mmol/L (4.00-12.00); BUN/Creat Ratio 16.25 Ratio (12.00-20.00); Carbon Dioxide 28.7 mmol/L (21.6-31.8); Chol/HDL Ratio 2.22; LDL Cholesterol,Calculated 63.2 mg/dL (0.0-131.0); Magnesium 2.1 mg/dL (1.5-2.4); Non-African American GFR(CKD) 69.6 (60.0-200.0); Potassium 4.5 mmol/L (3.5-5.5); Total Bilirubin 0.7 mg/dL (0.2-1.2); Total Protein 6.1 g/dL (6.2-8.2); VLDL Calculation 19.8 mg/dL (5.00-40.00)
[2020-09-08 15:30] LABS: Ferritin 108.1 ng/mL (10.0-291.0)
[2020-09-08 15:59] LABS: Hemoglobin A1C 5.3 % (4.0-6.0)
[2020-09-08 17:20] LABS: Folate, Serum 15.4 ng/mL
== END | disposition home or self-care (01) ==
LOC: LABWHC1 10:26
PROVIDERS: ATTEND Family Medicine
DX: Z00.00 Encounter for general adult medical examination without abnormal findings (principal); E78.5 Hyperlipidemia, unspecified; D50.9 Iron deficiency anemia, unspecified; I25.10 Atherosclerotic heart disease of native coronary artery without angina pectoris
CPT/HCPCS: 36415; 80053; 80061; 81001; 82306; 82550; 82607; 82728; 82746; 83036; 83540; 83550; 83615; 83735; 85025

== ENCOUNTER → 2020-12-26 | Outpatient (CLI) | payer MEDICARE ==
[2020-12-26 12:30] LABS: African American GFR (CKD) >90 (>60 ml/min/1.73 sqM); Blood Urea Nitrogen 16 mg/dL (7-17); Non-African American GFR(CKD) 83 (>60 ml/min/1.73 sqM)
--- NOTE | 2020-12-26 15:46 | CT ---
EXAMINATION TYPE: CT urogram wo/w con DATE OF EXAM: 12/26/2020 COMPARISON: None HISTORY: 80-year-old female R31.1, microscopic hematuria TECHNIQUE: Contiguous axial scanning of the abdomen and pelvis performed without and with IV Contrast , patient injected with 100 ml mL of Isovue 300. Delayed images through the kidneys and bladder were obtained. Coronal/sagittal reconstructions performed. 3-D reconstructions generated on a dedicated in dependent workstation. CT DLP: 1319 mGycm Automated exposure control for dose reduction was used. FINDINGS: Heart normal size without pericardial effusion. Strandy atelectasis in the lower lungs without pleura l effusion. No focal liver lesion or biliary ductal dilatation. Portal venous system is patent. Gallbladder, adrenal glands, spleen, pancreas within normal limits. There is a 3.2 cm diverticulum from the second portion of the duodenum projecting into the pancreatic head region. No dilated small bowel, free fluid, free air. However, scattered prominent fluid-filled small bowel l oops are present. Some loops especially on the left side of the abdomen show mild fold thickening. Liquid stool within the colon. No pericolic inflammatory change. Redundant sigmoid colon. Prominent f luid distending the cecum up to 5.3 cm wide. No mesenteric or retroperitoneal lymphadenopathy. Evaluation of the kidneys shows no nephrolithiasis. There is symmetric uptake and excretion of contra st from both kidneys. No abnormal filling defect within the renal collecting systems. Both ureters ap pear satisfactory. On the delayed scan, most of the bladder is opacified. No suspicious mural-based abnormality is ident ified. Bladder partially urine distended. Uterus is anteverted. Unable to exclude endometrial stripe thicken ing up to 8 mm on sagittal series 16 image 85. This can be further evaluated with pelvic ultrasound. Left ovary is visualized. Right ovary not clearly delineated from adjacent bowel loops. Mild pelvic f nida relaxation. No abnormal fluid collection in the pelvis or pelvic lymphadenopathy. Bones: Mild facet arthropathy mid to lower lumbar spine. Disc bulges L2-S1 levels. Ligamentum flavum thickening L4-L5. IMPRESSION: 1. NO NEPHROLITHIASIS OR HYDRONEPHROSIS. NO SUSPICIOUS RENAL MASS OR UROTHELIAL LESION IDENTIFIED. 2. PROMINENT FLUID-FILLED SMALL BOWEL LOOPS IN THE RIGHT SIDE OF THE ABDOMEN AND SUGGESTION OF SMALL BOWEL FOLD THICKENING THROUGHOUT THE LEFT SIDE OF THE ABDOMEN. THERE IS ALSO LIQUID STOOL THROUGHOUT THE COLON. CORRELATE FOR ENTERITIS. 3. PELVIC ULTRASOUND RECOMMENDED TO EXCLUDE ABNORMAL ENDOMETRIAL STRIPE THICKENING OF THE UTERUS. POS SIBLY MEASURING UP TO 8 MM ON SAGITTAL SERIES.
== END | disposition home or self-care (01) ==
LOC: RADCTMAIN 11:30
PROVIDERS: ATTEND Urology
DX: R31.29 Other microscopic hematuria (principal); R18.8 Other ascites
CPT/HCPCS: 82565; 84520; 74178; 36415; 74400; Q9967

== ENCOUNTER → 2022-01-12 | Outpatient (CLI) | payer MEDICARE ==
--- NOTE | 2022-01-12 18:00 | BD ---
EXAMINATION TYPE: Axial Bone Density DATE OF EXAM: 01/12/2022 COMPARISON: 11/24/2016 CLINICAL HISTORY: 81 years old Female. ICD-10 CODE: M85.80 DISORDER OF BONE, Z78.0 MENOPAUSAL STATE Height: 61 Weight: 105 FRAX RISK QUESTIONS: Family History (Parent hip fracture): NO History of Fracture in Adulthood: YES PELVIS AND RIBS IN AA Secondary Osteoporosis: NO Rheumatoid Arthritis: NO RISK FACTORS HISTORY OF: Family History of Osteoporosis: NO Active: YES Diet low in dairy products/other sources of calcium: NO Postmenopausal woman: YES Lost more than 2 inches in height since high school: NO Frequent falls: NO Poor Health: NO Hyperparathyroidism: NO Adrenal Insufficiency: NO MEDICATIONS: Additional Medications: YES VIT D3 , HEART MED , RESTLESS MEDS , ZINC ,VIT C , MAGNESIUM CITRATE, CHOLESTEROL EXAM MEASUREMENTS: Bone mineral densitometry was performed using the [employer] System. Bone mineral density as measured about the Lumbar spine is: ----- L1-L4(G/cm2): 0.966 T Score Values are as follows: ----- L1: -1.9 ----- L2: -2.1 ----- L3: -1.4 ----- L4: -1.9 ----- L1-L4: -1.8 Bone mineral density has: Decreased -4.5% since study of: 11/24/2016 Bone mineral density about the R hip (g/cm2): 0.787 Bone mineral density about the L hip (g/cm2): 0.786 T Score values are as follows: -----R Neck: -1.9 -----L Neck: -2.2 -----R Total: -1.8 -----L Total: -1.8 Bone mineral density has: Decreased -3.8% since study of: 11/24/2016 FRAX%s: The graph provided illustrates a 6.0% chance for a major osteoporotic fx and a 2.1% chance fo r the hips probability for fx in 10 years time. IMPRESSION: Osteopenia (T Score between -2.5 and -1). There is slightly increased risk of fracture and the patient may be considered for treatment. Re-Screen 2-5 years. NOTE: T-SCORE=SD OF THE YOUNG ADULT MEAN.
--- NOTE | 2022-01-13 11:10 | MM ---
Reason for Exam: Screening (asymptomatic). Last mammogram was performed 1 year(s) and 4 month(s) ago. Patient History: Menarche at age 12. First Full-Term at age 24. Postmenopausal. Risk Values: Martina 5 year model risk: 1.4%. NCI Lifetime model risk: 2.1%. Prior Study Comparison: 11/24/2016 Bilateral Screening Mammogram, MERGED WITH [facility]. 12/06/2017 Bilateral Screening Mammogram, MERGED WITH [facility]. 09/08/2020 Bilateral Diagnostic Mammogram, MERGED WITH [facility]. Tissue Density: The breast tissue is heterogeneously dense. This may lower the sensitivity of mammography. Findings: Analyzed By CAD. Benign bilateral vascular calcifications. There is no suspicious group of microcalcifications or new suspicious mass in either breast. Overall Assessment: Benign, BI-RAD 2 Management: Screening Mammogram of both breasts in 1 year. 1. Patient should continue monthly self breast exams. 2. A clinical breast exam by your physician is recommended on an annual basis. 3. This exam should not preclude additional follow-up of suspicious palpable abnormalities. Electronically signed and approved by: Navid Ernandez M.D. Radiologist
== END | disposition home or self-care (01) ==
LOC: RADBDWWP 14:16
PROVIDERS: ATTEND Family Medicine
DX: Z12.31 Encounter for screening mammogram for malignant neoplasm of breast (principal); M85.89 Other specified disorders of bone density and structure, multiple sites; Z78.0 Asymptomatic menopausal state
CPT/HCPCS: 77063; 77067; 77080

== ENCOUNTER → 2022-06-03 | Outpatient (CLI) | payer MEDICARE ==
[2022-06-03 16:13] LABS: ALT 26 U/L (8-44); AST 31 U/L (13-35); Chol/HDL Ratio 2.15 Ratio; LDL Cholesterol,Calculated 69.4 mg/dL (0.0-131.0)
== END | disposition home or self-care (01) ==
LOC: LABWHC1 09:55
PROVIDERS: ATTEND Internal Medicine Cardiovascular Disease
DX: E78.2 Mixed hyperlipidemia (principal)
CPT/HCPCS: 36415; 80061; 84450; 84460